=== PATIENT | male | born 1950 | race Caucasian/White ===

== ENCOUNTER 2024-04-23 12:18 | Emergency (ER) | payer MEDICARE, OTHER, SELFPAY ==
[2024-04-23 12:38] VITALS: BP 95/66
--- NOTE | 2024-04-23 12:38 | ED.GENMED ---
ED Provider Triage
<Alex Galloway PA-C - Last Filed: 04/23/24 12:41>
-
Patient seen by provider in Triage?: Seen in Triage
73 yo male w/ hx of muscular dystrophy and CAD s/p CABG x 3 presents with chest pain beginning at 0600 today. Took nitro with relief. Now pain free. concerned that he was 'out of it today' and not driving his wheelchair well
Comfortable appearing in wheelchair as of now. Initial EKG shows LVH, otherwise non ischemic
Check cardiac labs
History of Present Illness
<Alex Galloway PA-C - Last Filed: 04/23/24 12:41>
General
Chief Complaint: Chest Pain
Time Seen by Provider: 04/23/24 13:38
<Phill Paz MD - Last Filed: 04/23/24 19:44>
General
Source: patient
Exam Limitations: none
Nursing documentation reviewed up to this point in time: agreed with
History of Present Illness
History of Present Illness:
Patient with history of coronary artery disease, prostate disease, and muscular dystrophy, currently wheelchair-bound, presents to ED with multiple concerns. 1. patient is having recurrent chest pain, which he experiences on multiple occasions with
any exertion, usually resolves with nitroglycerin tablets at home, which also occurred today on 2 different occasions. 2. pt is experiencing continual problems with bowel movements despite taking otc medications, which is affecting his ability to
urinate, which also has occurred previously. Chest pain described as sharp, intermittent, nonradiating, brought on with exertion, completely relieved with nitroglycerin administration. Denies recent illness. Denies fever or chills. Denies cough.
Denies sore throat. Denies diarrhea. Denies recent change in medications or diet.
Past History
<Alex Galloway PA-C - Last Filed: 04/23/24 12:41>
Past History
ED Past Medical History: Arrthythmia (AFib), CAD, Cancer (Prostate), GERD, HTN, Hypercholesterolemia, Psychiatric (Major depression) and Other ([place]-Dreifuss Muscular Dystrophy, Parkinson disease, Restless Legs Syndrome)
ED Past Surgical History: Cardiac (CABG x3, stents)
Social History
Tobacco: Non-smoker
Alcohol: Occasional
Drug: None
Personal:
Living: with family
Family History
Family History: Other (Reviewed and non-contributory)
Review of Systems
<Phill Paz MD - Last Filed: 04/23/24 19:44>
Review of Systems
Allergies reviewed?: Yes
All Other Systems: ROS reviewed and negative except as documented in HPI and ROS
Constitutional: Reports no symptoms
EENT: Reports no symptoms
Respiratory: Reports no symptoms
Cardiac: Reports chest pain; Denies palpitations or syncope
ABD/GI: Reports constipated
: Reports difficulty voiding
Musculoskeletal: Reports no symptoms
Skin: Reports no symptoms
Neurological: Reports no symptoms
Phy Exam
<Phill Paz MD - Last Filed: 04/23/24 19:44>
Physical Exam
Physical Exam:
Physical Exam
General: no apparent distress, not acutely ill. afebrile
Head: nc/at. eomi
Neck: supple. normal range of motion.
Heart: irregularly irregular, no murmur. equal radial pulses.
Lungs: no acute respiratory distress. clear bilaterally
Abdomen: normal bowel sounds. not tender.
Neuro: alert and oriented x 3.
Skin: no rash
Psychiatric: well kept. interactive and cooperative
Extremities: no edema.
Scores
<Phill Paz MD - Last Filed: 04/23/24 19:44>
Heart Score for Chest Pain Patients
STEMI patient?: Not applicable
Course
<Alex Galloway PA-C - Last Filed: 04/23/24 12:41>
Orders/Labs/Results
Orders:
Orders
04/23/24 12:19
EKG [Electrocardiogram (*1)] Urgent
Reason for Study: Chest Pain
EKG- Treatment ONCE
04/23/24 13:52
CR Obstruct Series W/pa Chest Urgent
Comment:
Reason For Exam: abdominal discomfort w constipation
04/23/24 14:25
Complete Blood Count/With Diff Urgent
Comprehensive Metabolic Panel Urgent
Troponin I Urgent
04/23/24 15:19
0.9% Sodium Chloride 500 ml [Nss] 500 ml IV BOLUS
04/23/24 15:35
Phosphate Enema [Fleet Phosphate Enema-Adult] 135 ml RECTAL NOW STA
04/23/24 15:37
Phosphate Enema [Fleet Phosphate Enema-Adult] 135 ml .ROUTE .STK-MED ONE
Abnormal Lab Results
04/23/24
14:25
MCH 26.6 L pg
(27.0-31.0)
MCHC 31.7 L g/dL
(33.0-37.0)
MPV 11.0 H fL
(7.4-10.4)
Absolute Neuts (auto) 8.1 H 10^3/uL
(1.4-6.5)
Absolute Lymphs (auto) 0.9 L 10^3/uL
(1.2-3.4)
Absolute Monos (auto) 0.8 H 10^3/uL
(0.1-0.6)
Neutrophils % 81.8 H %
(42.2-75.2)
Lymphocytes % 8.9 L %
(20.5-51.1)
BUN 25 H mg/dl
(9-20)
04/23/24 14:25
04/23/24 14:25
Vital Signs
Initial and Last Documented VS:
Initial Vital Signs
Temp Pulse Resp BP Pulse Ox
97.6 F 65 20 95/66 94
04/23/24 12:38 04/23/24 12:38 04/23/24 12:38 04/23/24 12:38 04/23/24 12:38
Last Documented Vital Signs
Temp Pulse Resp BP Pulse Ox
97.6 F 95 20 113/67 96
04/23/24 12:38 04/23/24 16:00 04/23/24 12:38 04/23/24 16:00 04/23/24 16:00
<Phill Paz MD - Last Filed: 04/23/24 19:44>
Orders/Labs/Results
Orders:
Orders
04/23/24 12:19
EKG [Electrocardiogram (*1)] Urgent
Reason for Study: Chest Pain
EKG- Treatment ONCE
04/23/24 13:52
CR Obstruct Series W/pa Chest Urgent
Comment:
Reason For Exam: abdominal discomfort w constipation
04/23/24 14:25
Complete Blood Count/With Diff Urgent
Comprehensive Metabolic Panel Urgent
Troponin I Urgent
04/23/24 15:19
0.9% Sodium Chloride 500 ml [Nss] 500 ml IV BOLUS
04/23/24 15:35
Phosphate Enema [Fleet Phosphate Enema-Adult] 135 ml RECTAL NOW STA
04/23/24 15:37
Phosphate Enema [Fleet Phosphate Enema-Adult] 135 ml .ROUTE .STK-MED ONE
Abnormal Lab Results
04/23/24
14:25
MCH 26.6 L pg
(27.0-31.0)
MCHC 31.7 L g/dL
(33.0-37.0)
MPV 11.0 H fL
(7.4-10.4)
Absolute Neuts (auto) 8.1 H 10^3/uL
(1.4-6.5)
Absolute Lymphs (auto) 0.9 L 10^3/uL
(1.2-3.4)
Absolute Monos (auto) 0.8 H 10^3/uL
(0.1-0.6)
Neutrophils % 81.8 H %
(42.2-75.2)
Lymphocytes % 8.9 L %
(20.5-51.1)
BUN 25 H mg/dl
(9-20)
04/23/24 14:25
04/23/24 14:25
Vital Signs
Initial and Last Documented VS:
Initial Vital Signs
Temp Pulse Resp BP Pulse Ox
97.6 F 65 20 95/66 94
04/23/24 12:38 04/23/24 12:38 04/23/24 12:38 04/23/24 12:38 04/23/24 12:38
Last Documented Vital Signs
Temp Pulse Resp BP Pulse Ox
97.6 F 95 20 113/67 96
04/23/24 12:38 04/23/24 16:00 04/23/24 12:38 04/23/24 16:00 04/23/24 16:00
<Phill Paz MD - Last Filed: 04/23/24 19:44>
MDM/Problems Addressed
MDM/Problems Addressed:
Chest pain, unfortunately recurrent with any exertion, which patient reports happens very frequently, usually relieved with nitroglycerin tablet. Initial troponin unremarkable along with EKG findings. As such, I do not believe that he needs any
further cardiac workup. Patient's main complaint upon arrival, however, is ongoing constipation despite outpatient treatment. X-ray confirmed likely moderate stool. Patient received digital disimpaction by myself, with large quantity of hard
stool, with improvement symptoms. Patient will be discharged home in stable condition, to the care of his , with recommendation to continue bowel regimen at home, i.e. MiraLAX, along with hydration, which may be contributing to his presenting
symptoms. Patient and spouse expressed understanding at time of discharge.
<Phill Paz MD - Last Filed: 04/23/24 19:44>
*EKG
Interpreted by ED Provider?: Yes
EKG Intrepretation Date: 04/23/24
Heart Rate: 100
Rate: normal
Rhythm: a-fib
[place]: normal axis
*Critical Care Note
Total Time (30-74mins, 75-104mins- exclusive of procedures): Not Applicable
ED Attending Note
<Alex Galloway PA-C - Last Filed: 04/23/24 12:41>
-
Portions of this chart may have been created with voice recognition software.� Occasional wrong word or��sound alike� substitutions may have occurred due to the inherent limitations of voice recognition software.
Discharge Plan
Departure
Patient Disposition: Home (Routine Discharge)
Date of Disposition: 04/23/24
Time of Disposition: 16:35
Patient with high blood pressure during this ER visit?: Yes
Condition: Good
Discharge Problem:
Chest pain, Constipation
Instructions: Constipation, Adult ED, Chest Pain PCP Follow Up
Prescriptions:
No Action
cyclobenzaprine 10 mg Tablet
10 mg PO HSPRN PRN (Reason: MUSCLE SPASMS)
atorvastatin [Lipitor] 80 mg Tablet
80 mg PO HS
venlafaxine [Effexor XR] 150 mg Capsule,Extended Release 24hr
150 mg PO DAILY
temazepam 15 mg Capsule
15 mg PO HS
tamsulosin [Flomax] 0.4 mg Capsule
0.4 mg PO HS
ropinirole 2 mg Tablet
4 mg PO HS
ropinirole 2 mg Tablet
2 mg PO DAILY
pantoprazole [Protonix] 40 mg Tablet,Delayed Release (Dr/Ec)
40 mg PO DAILY
nitroglycerin [Nitrostat] 0.4 mg Tablet, Sublingual
0.4 mg SUBLINGUAL [id number] PRN (Reason: CHEST PAINS)
magnesium citrate Solution
150 ml PO DAILYPRN PRN (Reason: constipation)
lorazepam 1 mg Tablet
1 mg PO HSPRN PRN (Reason: SLEEP)
carbidopa-levodopa 25-100 mg Tablet
1 tab PO DAILY@1330
carbidopa-levodopa 25-100 mg Tablet
2 tab PO DAILY
carbidopa-levodopa 25-100 mg Tablet
1 tab PO DAILY@1800
carbidopa-levodopa 25-100 mg Tablet
2 tab PO HS
coQ10 (ubiquinol) 100 mg Capsule
300 mg PO HS
Eliquis 5 mg Tablet
5 mg PO BID
Linzess 72 mcg Capsule
72 mcg PO DAILY
Rx Instructions:
02/15/23- patient has free sample from his pcp
isosorbide mononitrate 30 mg Tablet Extended Release 24 Hr
30 mg PO DAILY Qty: 30 0RF
clopidogrel 75 mg Tablet
75 mg PO DAILY Qty: 30 0RF
ferrous sulfate [FeroSul] 325 mg (65 mg iron) Tablet
325 mg PO DAILY Qty: 30 0RF
metoprolol succinate 25 mg Tablet Extended Release 24 Hr
12.5 mg PO DAILY Qty: 30 0RF
Referrals:
Doug Bond MD [Family Provider] -
Activity Restrictions/Additional Instructions:
As discussed, please follow-up with your primary care physician and/or technical solution architect with any further concerns.
Interventions
Interventions:
*Risk Screen - Suicide Last Done: 04/23/24 15:59
*General Assessment Last Done: 04/23/24 12:38
*Neglect/Abuse Screening Last Done: 04/23/24 15:59
ED- Fall Risk Assessment Last Done: 04/23/24 17:09
*ED COVID-19 Vaccine History Last Done: 04/23/24 15:59
*Nursing Disposition Last Done: 04/23/24 17:09
Discharge Date and Time
Discharge Date/Time: 04/23/24 17:10
Print Language: FIJIAN
[2024-04-23 15:05] LABS: % Basophils 0.3 % (0-2); % Eosinophils 0.1 % (0-6); % Immature Granulocytes 0.4 % (0-0.5); % Lymphocytes 8.9 % (20.5-51.1); % Monocytes 8.5 % (1.7-9.3); % Neutrophils 81.8 % (42.2-75.2); ALT (SGPT) 14 U/L (0-50); Absolute Lymphocytes 0.9 10^3/uL (1.2-3.4); Absolute Monocytes 0.8 10^3/uL (0.1-0.6); Absolute Neutrophils 8.1 10^3/uL (1.4-6.5); Albumin 4.1 g/dl (3.5-5.0); Alkaline Phosphatase 99 U/L (38-126); Blood Urea Nitrogen 25 mg/dl (9-20); Calcium 9.6 mg/dl (8.4-10.2); Carbon Dioxide 30 mmol/L (22-30); Chloride 99 mmol/L (98-107); Glucose 94 mg/dl (70-99); Hematocrit 43.8 % (39.0-52.0); Hemoglobin 13.9 g/dL (13.0-18.0); Mean Corp Hgb Conc. 31.7 g/dL (33.0-37.0); Mean Corpuscular Hgb 26.6 pg (27.0-31.0); Mean Corpuscular Volume 83.9 fL (80.0-94.0); Nucleated Red Blood Cells % 0 % (-); Platelet Count 190 10^3/uL (130-400); Potassium 4.2 mmol/L (3.5-5.1); Red Blood Cell Count 5.22 10^6/uL (4.70-6.10); Red Cell Dist. Width 14.3 % (11.5-14.5); Sodium 138 mmol/L (135-145); Total Protein 6.6 g/dl (6.3-8.2); White Blood Cell Count 9.9 10^3/uL (4.8-10.8); eGFR > 60.00
[2024-04-23 15:13] LABS: Troponin I < 0.012 ng/ml
[2024-04-23] MEDS: FLEET PHOSPHATE ENEMA-ADULT 135 ML RECTAL (15:51)
[2024-04-23 15:52] LABS: AST (SGOT) 24 U/L (17-59)
[2024-04-23] MEDS: NSS 500 IV (15:54)
[2024-04-23 16:00] VITALS: BP 113/67
== END 2024-04-23 17:10 | disposition home or self-care (01) ==
LOC: EMR 12:18
PROVIDERS: Physician Assistant; EMERGENCY PHYSICIAN Emergency Medicine; FAMILY PHYSICIAN Internal Medicine
DX: R07.9 Chest pain, unspecified (principal); K59.00 Constipation, unspecified; I25.10 Atherosclerotic heart disease of native coronary artery without angina pectoris; I10 Essential (primary) hypertension; I48.91 Unspecified atrial fibrillation; K21.9 Gastro-esophageal reflux disease without esophagitis; E78.00 Pure hypercholesterolemia, unspecified; Z95.5 Presence of coronary angioplasty implant and graft; G20.A1 Parkinson's disease without dyskinesia, without mention of fluctuations; Z85.46 Personal history of malignant neoplasm of prostate; Z95.1 Presence of aortocoronary bypass graft; Z99.3 Dependence on wheelchair
CPT/HCPCS: 99284; 96360; 74022; 80053; 84484; 85025; 93005

== ENCOUNTER 2024-07-17 14:12 | Emergency (ER) | payer MEDICARE, OTHER, SELFPAY ==
[2024-07-17 14:18] VITALS: BP 85/56
[2024-07-17 14:32] VITALS: BP 94/59
--- NOTE | 2024-07-17 14:37 | ED.GENMED ---
History of Present Illness
General
Chief Complaint: Change in Mental Status
Source: patient and family
Exam Limitations: none
Time Seen by Provider: 07/17/24 14:29
History of Present Illness
History of Present Illness:
See MDM
Past History
Past History
ED Past Medical History: Arrthythmia (AFib), CAD, Cancer (Prostate), GERD, HTN, Hypercholesterolemia, Psychiatric (Major depression) and Other ([place] Muscular Dystrophy, Parkinson disease, Restless Legs Syndrome)
ED Past Surgical History: Cardiac (CABG x3, stents)
Social History
Tobacco: Non-smoker
Alcohol: Occasional
Drug: None
Personal:
Living: with family
Family History
Family History: Other (Reviewed and non-contributory)
Phy Exam
Physical Exam
Physical Exam:
See MDM
Course
Orders/Labs/Results
Orders:
Orders
07/17/24 14:36
Electrocardiogram (*1) Urgent
Reason for Study: Fatigue / Weakness
CT Head W/o Iv Contrast Urgent
Comment:
Reason For Exam: altered, R side headache
EKG- Treatment ONCE
0.9% Sodium Chloride 1000 ml [Nss] 1,000 ml IV BOLUS
CR Chest Portable - 1 View Urgent
Comment:
Reason For Exam: SOB, Cough
Reason Study Needs to be Portable: Patient Unstable
07/17/24 14:59
Complete Blood Count/With Diff Urgent
Comprehensive Metabolic Panel Urgent
Troponin I Urgent
07/17/24 16:19
Urinalysis Reflex To Culture Urgent
Date Specimen was Collected: 07/17/24
Time Specimen was Collected: 14:47
Urine Microscopic Reflex Cult Urgent
Urine Culture Urgent
MARYAM Source: U
Specimen Description:
Date Specimen was Collected: 07/17/24
Time Specimen was Collected: 14:47
07/17/24 17:10
Sodium Zirconium Cyclosilicate [Lokelma] 10 gram PO NOW STA
Abnormal Lab Results
07/17/24 07/17/24
14:59 16:19
MCH 26.7 L pg
(27.0-31.0)
MCHC 32.8 L g/dL
(33.0-37.0)
MPV 11.7 H fL
(7.4-10.4)
Potassium 5.5 H mmol/L
(3.5-5.1)
BUN 46 H mg/dl
(9-20)
Glucose 178 H mg/dl
(70-99)
Ur Occult Blood Reflex 4+ A
(Negative)
Leukocyte Esterase Rfl 1+ A
(Negative)
Urine Bacteria (Reflex) Few A
(Negative)
Urine Albumin (Reflex) 2+ A
(Neg - Trace)
07/17/24 14:59
07/17/24 14:59
Vital Signs
Initial and Last Documented VS:
Initial Vital Signs
Temp Pulse Resp BP Pulse Ox
97.6 F 73 18 85/56 96
07/17/24 14:18 07/17/24 14:18 07/17/24 14:18 07/17/24 14:18 07/17/24 14:18
Last Documented Vital Signs
Temp Pulse Resp BP Pulse Ox
97.6 F 93 17 89/57 98
07/17/24 14:18 07/17/24 16:15 07/17/24 16:00 07/17/24 16:00 07/17/24 16:45
MDM/Problems Addressed
Differential Diagnosis Includes:
HPI and MDM Narrative:
73-year-old male presenting for evaluation of altered mental status. It is not sure when all the symptoms started. He was last seen normal last night while he was playing cards. They noted he was abnormal today and he was running into [place] with
his electric scooter. He had a blank stare and was not following commands. They brought him in. On arrival, he appears to be back to his baseline. Patient states he feels lightheaded and 'spacey'. He complains of a right-sided headache. He is
on anticoagulation. Will obtain CT head. Will look for metabolic abnormalities and will check urinalysis given his history of Parkinson's disease with altered mental status. He apparently has a chronic cough which family believes that it gets
dismissed. Will obtain chest x-ray
Physical exam
General: Weak and fatigued. Following commands and speaking appropriately
HEENT: protecting airway
Neck: appears supple
CV: No evidence of cyanosis. Irregular rhythm
Resp: No accessory muscle use
Abd: Non-distended. Soft and nontender
Extremities: No deformities
Neuro: alert. Moving all 4 extremities. No obvious neurodeficit noted
Psych: Flat affect
Skin: Intact
Problems Addressed including Acute and Chronic Conditions affecting care:
1. Altered mental status
Acuity: acute
Prognosis: stable
Details: Symptoms appear to be improving. Will obtain basic blood work and CT head and urinalysis
2. Hyperkalemia
Acuity: acute
Prognosis: stable
Details: Will give dose of Lokelma
Updates
Patient has mild hyperkalemia. Will give dose of Lokelma. Urinalysis and remainder of the blood work without clinically significant abnormality. CT head negative. Chest x-ray clear. I long discussion with patient and . We discussed the
possibility of TIA. I did offer admission for further workup. Both patient and understand that we could be missing a treatable diagnosis if they go home. They both understand that a stroke could recur and cause life long morbidity. Knowing
that, both feel comfortable going home and have a capacity make this decision
Differential Diagnosis (but not limited to): UTI, aspiration, intracranial hemorrhage, TIA, hyponatremia
Testing considered: CT angiogram head and neck
Drug therapy (if applicable): OTC meds, please see d/c instruction regarding Rx drugs
Amount and/or Complexity of Data Reviewed
Clinical info obtained from: Patient and family
External data reviewed: N/A
Labs I independently reviewed (but not limited to): Mild hyperkalemia
Radiology: The CT scan was personally and independently reviewed. In addition, official CT report reviewed.
X-ray independently reviewed: Chest x-ray clear
Pulse Ox: not hypoxic
EKG independently reviewed: A-fib, leftward axis, no STEMI
Laser Beam Machine Operator: N/A
Critical Care: N/A
Risk of Complication:
Social Determinants of health: Good social support
Discussed with other providers: N/A
Escalation of Care includes Admit/Obs: After being observed in the Emergency Department, pt stable for discharge.
Occasional wrong word or 'sound a like' substitutions may have occurred due to the inherent limitations of voice recognition software. Read the chart carefully and recognize, using context, where substitutions have occurred.
*Critical Care Note
Total Time (30-74mins, 75-104mins- exclusive of procedures): Not Applicable
ED Attending Note
-
Portions of this chart may have been created with voice recognition software.� Occasional wrong word or��sound alike� substitutions may have occurred due to the inherent limitations of voice recognition software.
Discharge Plan
Departure
Patient Disposition: Home (Routine Discharge)
Date of Disposition: 07/17/24
Time of Disposition: 17:18
Patient with high blood pressure during this ER visit?: No
Discharge Problem:
Altered mental status, Hyperkalemia
Instructions: Altered Mental Status (DC)
Prescriptions:
No Action
cyclobenzaprine 10 mg Tablet
10 mg PO HSPRN PRN (Reason: MUSCLE SPASMS)
atorvastatin [Lipitor] 80 mg Tablet
80 mg PO HS
venlafaxine [Effexor XR] 150 mg Capsule,Extended Release 24hr
150 mg PO DAILY
temazepam 15 mg Capsule
15 mg PO HS
tamsulosin [Flomax] 0.4 mg Capsule
0.4 mg PO HS
ropinirole 2 mg Tablet
4 mg PO HS
ropinirole 2 mg Tablet
2 mg PO DAILY
pantoprazole [Protonix] 40 mg Tablet,Delayed Release (Dr/Ec)
40 mg PO DAILY
nitroglycerin [Nitrostat] 0.4 mg Tablet, Sublingual
0.4 mg SUBLINGUAL [id number] PRN (Reason: CHEST PAINS)
magnesium citrate Solution
150 ml PO DAILYPRN PRN (Reason: constipation)
lorazepam 1 mg Tablet
1 mg PO HSPRN PRN (Reason: SLEEP)
carbidopa-levodopa 25-100 mg Tablet
1 tab PO DAILY@1330
carbidopa-levodopa 25-100 mg Tablet
2 tab PO DAILY
carbidopa-levodopa 25-100 mg Tablet
1 tab PO DAILY@1800
carbidopa-levodopa 25-100 mg Tablet
2 tab PO HS
coQ10 (ubiquinol) 100 mg Capsule
300 mg PO HS
Eliquis 5 mg Tablet
5 mg PO BID
Linzess 72 mcg Capsule
72 mcg PO DAILY
Rx Instructions:
02/15/23- patient has free sample from his pcp
isosorbide mononitrate 30 mg Tablet Extended Release 24 Hr
30 mg PO DAILY Qty: 30 0RF
clopidogrel 75 mg Tablet
75 mg PO DAILY Qty: 30 0RF
ferrous sulfate [FeroSul] 325 mg (65 mg iron) Tablet
325 mg PO DAILY Qty: 30 0RF
metoprolol succinate 25 mg Tablet Extended Release 24 Hr
12.5 mg PO DAILY Qty: 30 0RF
Referrals:
William Staley I. DO [Family Provider] -
Activity Restrictions/Additional Instructions:
Please return for any worsening symptoms.
You may return at any time if you have further concerns.
Please follow up with your doctor at the first available appointment, preferably this week.
As we discussed you could have had a mini stroke. It may happen again. If it happens again, I can also not be certain that it will resolve.
Please have your potassium checked later this week
Thank you for choosing [facility].
Interventions
Interventions:
*Risk Screen - Suicide Last Done: 07/17/24 15:05
*General Assessment Last Done: 07/17/24 14:18
*Neglect/Abuse Screening Last Done: 07/17/24 14:18
*ED- Fall Risk Assessment Last Done: 07/17/24 15:06
*ED COVID-19 Vaccine History Last Done: 07/17/24 15:06
ED- Pulmonary Assessment Last Done: 07/17/24 15:05
ED- Neurological Assessment Last Done: 07/17/24 15:05
ED- Cardiac Assessment Last Done: 07/17/24 15:05
ED Swallowing Screen Last Done: 07/17/24 15:05
Discharge Date and Time
Print Language: THAI
[2024-07-17] MEDS: NSS 1000 IV (15:03)
[2024-07-17 15:05] VITALS: BP 60/42
[2024-07-17 15:07] LABS: % Basophils 0.5 % (0-2); % Eosinophils 0.2 % (0-6); % Immature Granulocytes 0.3 % (0-0.5); % Lymphocytes 20.9 % (20.5-51.1); % Monocytes 4.1 % (1.7-9.3); Absolute Lymphocytes 1.8 10^3/uL (1.2-3.4); Absolute Monocytes 0.4 10^3/uL (0.1-0.6); Absolute Neutrophils 6.5 10^3/uL (1.4-6.5); Hematocrit 44.2 % (39.0-52.0); Hemoglobin 14.5 g/dL (13.0-18.0); Mean Corp Hgb Conc. 32.8 g/dL (33.0-37.0); Mean Corpuscular Hgb 26.7 pg (27.0-31.0); Mean Corpuscular Volume 81.4 fL (80.0-94.0); Mean Platelet Volume 11.7 fL (7.4-10.4); Nucleated Red Blood Cells % 0 % (-); Platelet Count 217 10^3/uL (130-400); Red Blood Cell Count 5.43 10^6/uL (4.70-6.10); Red Cell Dist. Width 14.3 % (11.5-14.5); White Blood Cell Count 8.8 10^3/uL (4.8-10.8)
[2024-07-17 15:22] LABS: ALT (SGPT) 12 U/L (0-50); AST (SGOT) 27 U/L (17-59); Albumin 4.2 g/dl (3.5-5.0); Alkaline Phosphatase 95 U/L (38-126); Blood Urea Nitrogen 46 mg/dl (9-20); Calcium 10.2 mg/dl (8.4-10.2); Carbon Dioxide 27 mmol/L (22-30); Chloride 99 mmol/L (98-107); Glucose 178 mg/dl (70-99); Potassium 5.5 mmol/L (3.5-5.1); Sodium 139 mmol/L (135-145); Total Protein 6.7 g/dl (6.3-8.2); eGFR > 60.00
[2024-07-17 15:32] LABS: Troponin I 0.014 ng/ml
[2024-07-17 15:50] VITALS: BP 119/64
[2024-07-17 16:00] VITALS: BP 89/57
[2024-07-17 16:31] LABS: Urine Albumin 2+ (Neg - Trace); Urine Bilirubin Negative (Negative); Urine Character Clear (Clear); Urine Color Yellow; Urine Glucose Negative (Negative); Urine Ketone Negative (Negative); Urine Leukocyte 1+ (Negative); Urine Nitrite Negative (Negative); Urine Occult Blood 4+ (Negative); Urine Urobilinogen Negative (Neg - 1+)
[2024-07-17 17:00] VITALS: BP 89/58
[2024-07-17 17:01] LABS: Urine Bacteria Few (Negative); Urine Red Blood Cell 0-2 /HPF (0-2); Urine Squamous Cell 0-2 /LPF (Few); Urine White Cell 0-2 /HPF (0-5)
[2024-07-17] MEDS: LOKELMA 10 GRAM PO (17:27)
== END 2024-07-17 17:39 | disposition home or self-care (01) ==
LOC: EMR 14:12
PROVIDERS: EMERGENCY PHYSICIAN Student in an Organized Health Care Education/Training Program; FAMILY PHYSICIAN Internal Medicine
DX: R41.82 Altered mental status, unspecified (principal); E87.5 Hyperkalemia; I25.10 Atherosclerotic heart disease of native coronary artery without angina pectoris; E78.00 Pure hypercholesterolemia, unspecified; I10 Essential (primary) hypertension; I48.91 Unspecified atrial fibrillation; G20.A1 Parkinson's disease without dyskinesia, without mention of fluctuations; Z95.1 Presence of aortocoronary bypass graft; Z95.5 Presence of coronary angioplasty implant and graft
CPT/HCPCS: 96360; 99284; 70450; 71045; 80053; 81003; 81015; 84484; 85025; 87086; 93005

== ENCOUNTER 2024-07-21 17:19 | Observation (INO) | payer MEDICARE, OTHER, SELFPAY ==
[2024-07-21 15:09] VITALS: BP 126/77
[2024-07-21 15:11] VITALS: BP 126/77
--- NOTE | 2024-07-21 15:26 | ED.GENMED ---
History of Present Illness
General
Chief Complaint: Weakness
Source: patient, records, previous radiology exam and previous hospital records
Exam Limitations: none
Time Seen by Provider: 07/21/24 15:13
Nursing documentation reviewed up to this point in time: agreed with
History of Present Illness
History of Present Illness:
73-year-old male via EMS presents with weakness
He is chronically weak has muscular dystrophy is bedbound is his primary caregiver seen here couple days ago with similar complaints told that he could have had a TIA, he was hyperkalemic, mildly, offered admission family wanted to go home,
since then symptoms have remained, also has some pain in his right groin described as an ache
He is A-fib has been compliant with his anti-coagulant
Past History
Past History
ED Past Medical History: Arrthythmia (AFib), CAD, Cancer (Prostate), GERD, HTN, Hypercholesterolemia, Psychiatric (Major depression) and Other (Hammond-Dreifuss Muscular Dystrophy, Parkinson disease, Restless Legs Syndrome)
ED Past Surgical History: Cardiac (CABG x3, stents)
Social History
Tobacco: Non-smoker
Alcohol: Occasional
Drug: None
Personal:
Living: with family
Employment: Not employed
Family History
Family History: Other (Reviewed and non-contributory)
Review of Systems
Review of Systems
All Other Systems: Not applicable
Constitutional: Reports fatigue; Denies fever
EENT: Reports no symptoms
Respiratory: Reports no symptoms
Cardiac: Reports no symptoms
ABD/GI: Reports no symptoms; Denies abdominal pain
: Reports other (Right groin pain); Denies dysuria, incontinence or bleeding
Musculoskeletal: Reports muscle stiffness
Neurological: Reports dizzy and weakness
Phy Exam
Physical Exam
Physical Exam:
Physical Exam
General: Chronically ill male sitting upright normal mental status
Neck: No jaundice
Heart: Irregular
Lungs: no acute respiratory distress. clear bilaterally
Abdomen: Nontender no appreciable hernia or deficit in the right groin
Neuro: alert and oriented. Upper extremities mildly weak lower extremities contracted plegia
Skin: no rash
Psychiatric: well kept. interactive and cooperative
Extremities: Nonpitting edema
Course
Orders/Labs/Results
Orders:
Orders
07/21/24 Dinner
Regular
At Your Request: Limited Participation
Does patient need a safe tray?: No
07/21/24 15:09
Electrocardiogram (*1) Urgent
Reason for Study: Chest Pain
EKG- Treatment ONCE
07/21/24 15:15
C-Reactive Protein Urgent
Comment: ADD ON
Cardiovascular Evaluation Urgent
Comment: ADD ON
Complete Blood Count/With Diff Urgent
Comprehensive Metabolic Panel Urgent
Creatine Phosphokinase Urgent
Comment: ADD ON
Erythrocyte Sed Rate Urgent
Comment: ADD ON
Glycohemoglobin (HgbA1c) Urgent
NT-proBNP Urgent
Comment: ADD ON
TSH Urgent
Comment: ADD ON
Total Thyroxine Urgent
Comment: ADD ON
Troponin I Urgent
07/21/24 15:25
Add On- LAB Urgent
Tests Added?: esr/crp/cpk
CT Head W/o Iv Contrast Urgent
Comment:
Reason For Exam: increased weakness recnelt tia
07/21/24 15:26
CT Abd/pel Without Iv Or Oral Urgent
Comment:
Reason For Exam: groni pian hematuria
07/21/24 15:42
Case Management Consult ONCE
Case Management Consult: Discharge Planning
07/21/24 16:44
CR Chest - 2 Views Urgent
Comment:
Reason For Exam: heaviness
07/21/24 16:45
Admit/Transfer Patient As Directed
Co-Sign Provider:
Level of Care: Observation services
Assign to:: Telemetry
Physician / Group: Ajay Roberson
Diagnosis: Weakness; suspected TIA
Reason for Telemetry: Arrhythmia
Date to Stop Telemetry: 07/24/24
Time to Stop Telemetry: 11:00
Reason for Hospitalization: Weakness; suspected TIA
PRN Pain Medication Management As Directed
May give lesser potent ordered pain med per pt: Yes
preference::
Protocol:: Medication orders for pain may be administered in a
manner that supports deferring to patient preference
when the pt is:
- Requesting an ordered lesser potent pain medication.
Least to most potent pain medications are defined
as: acetaminophen < NSAID < tramadol < opioids
(morphine, oxycodone, hydromorphone).
- Requesting a lesser dose of the same medication IF
ORDERED.
- Requesting a less intrusive route of administration
if both routes are prescribed by the provider (PO <
IV).
07/21/24 16:47
Code Status As Directed
Resuscitation Status: Full Code
07/21/24 16:50
Add On- LAB Urgent
Tests Added?: BNP; TSH; T4; A1c; lipid panel
COVID-19 Antigen Routine
Source: Nasal Swab
07/21/24 17:52
Acetaminophen [Tylenol/Feverall] 650 mg RECTAL Q4HPRN PRN
Acetaminophen [Tylenol] 650 mg PO Q4HPRN PRN
Nitroglycerin Sublingual [Nitrostat (Sublingual)] 0.4 mg SL [id number] PRN
07/21/24 17:52
Case Management Consult ONCE
Case Management Consult: Discharge Planning
Comment: stroke/tia
DIETARY IP CONSULT Routine
Reason for Consult: stroke/TIA
NEUROLOGY CONSULT Routine
Consulting Provider: Randa Valenzuela
Was physician already notified: Yes
Reason for consult: EDMD; progressive weakness; Parkinson's
Hat Blocking Machine Operator Urgent
Activity As Directed
Activity Level: With Assistance
NIH Stroke Scale As Directed
Directions: Per protocol
Comment: every shift and with any change in condition or mental status
Neurological Checks As Directed
Frequency: q4h
Additional Instructions:: q4h x 24h upon admission to the floor, then qshift & with any change in condition
and mental status
Patient Education As Directed
Type: Stroke education packet
Comment: provide to patient and family
Pneumatic Compression Sleeves As Directed
Type: Knee high
Vital Signs As Directed
Frequency: Per unit guidelines
Ot Eval And Treat Routine
Pt Eval And Treat Routine
Activity Level: With Assistance
Speech Therapy Eval & Treat Routine
DX Deep Vein Thrombosis Video Routine
07/21/24 19:00
Carbidopa/Levodopa [Sinemet 25-100] 1.5 tablet PO DAILY@1900
07/21/24 20:00
Apixaban [Eliquis] 5 mg PO BID
Metoprolol Xl [Toprol Xl] 12.5 mg PO BID
07/21/24 22:00
Atorvastatin [Lipitor] 40 mg PO HS
Tamsulosin [Flomax] 0.4 mg PO HS
07/21/24 23:00
Carbidopa/Levodopa [Sinemet 25-100] 2 tablet PO HS@2300
07/22/24 08:00
Carbidopa/Levodopa [Sinemet 25-100] 2 tablet PO DAILY
ISOSORBIDE MONOnitrate ER [Imdur (Extended Release)] 30 mg PO DAILY
Lisinopril [Zestril] 10 mg PO DAILY
Pantoprazole [Protonix] 40 mg PO DAILY
07/22/24 14:00
Carbidopa/Levodopa [Sinemet 25-100] 1.5 tablet PO DAILY@1400
07/24/24 11:00
DC Protocol for Telemetry ONCE
Abnormal Lab Results
07/21/24
15:15
MCHC 32.8 L g/dL
(33.0-37.0)
MPV 11.4 H fL
(7.4-10.4)
Absolute Monos (auto) 0.9 H 10^3/uL
(0.1-0.6)
BUN 44 H mg/dl
(9-20)
Glucose 103 H mg/dl
(70-99)
Hemoglobin A1c 5.9 H %
(4.0-5.6)
Creatine Kinase 224 H U/L
(55-170)
Triglycerides 344 H mg/dl
(10-149)
VLDL Cholesterol, Calc 68 H mg/dl
(0-30)
07/21/24 15:15
07/21/24 15:15
Vital Signs
Initial and Last Documented VS:
Initial Vital Signs
Temp Pulse Resp BP Pulse Ox
97.6 F 84 18 126/77 100
07/21/24 15:09 07/21/24 15:09 07/21/24 15:09 07/21/24 15:09 07/21/24 15:09
Last Documented Vital Signs
Temp Pulse Resp BP Pulse Ox
97.8 F 81 16 98/56 97
07/22/24 07:32 07/22/24 08:14 07/22/24 07:32 07/22/24 14:12 07/22/24 08:40
MDM/Problems Addressed
Differential Diagnosis Includes:
Update patient had a fairly extensive workup few days ago creatinine was up BUN was hemoglobin was normal to have some hematuria certainly high risk for stroke or TIA he is anticoagulated will repeat his CT suspect will be a change, also check CT of
the abdomen pelvis to look for nephrolithiasis, could explain his subjective groin pain hematuria, will also check CPK and inflammatory markers
Ultimately not sure he is can ability go home elderly is his main caregiver,
*Critical Care Note
Total Time (30-74mins, 75-104mins- exclusive of procedures): Not Applicable
ED Attending Note
-
Portions of this chart may have been created with voice recognition software.� Occasional wrong word or��sound alike� substitutions may have occurred due to the inherent limitations of voice recognition software.
Discharge Plan
Departure
Patient Disposition: Admit
Admit to: Med/Surg
Presentation/result/management discussed w/ accepting MD/DO: Hospitalist
Covid-19: Not Applicable
Discharge Problem:
Hammond-Dreifuss muscular dystrophy, Parkinsons, Toxic metabolic encephalopathy
Interventions
Interventions:
*Risk Screen - Suicide Last Done: 07/21/24 15:13
*Neglect/Abuse Screening Last Done: 07/21/24 15:09
*ED- Fall Risk Assessment Last Done: 07/21/24 17:46
*ED COVID-19 Vaccine History Last Done: 07/21/24 15:09
*Nursing Disposition Last Done: 07/21/24 17:46
ED- Cardiac Assessment Last Done: 07/21/24 15:29
ED- Neurological Assessment Last Done: 07/21/24 15:29
ED- Pulmonary Assessment Last Done: 07/21/24 15:29
Discharge Date and Time
Discharge Date/Time: 07/21/24 17:46
[2024-07-21 15:29] LABS: % Basophils 0.4 % (0-2); % Eosinophils 0.3 % (0-6); % Immature Granulocytes 0.4 % (0-0.5); % Lymphocytes 28.5 % (20.5-51.1); % Monocytes 8.8 % (1.7-9.3); % Neutrophils 61.6 % (42.2-75.2); Absolute Lymphocytes 2.8 10^3/uL (1.2-3.4); Absolute Monocytes 0.9 10^3/uL (0.1-0.6); Hematocrit 41.8 % (39.0-52.0); Hemoglobin 13.7 g/dL (13.0-18.0); Mean Corp Hgb Conc. 32.8 g/dL (33.0-37.0); Mean Corpuscular Hgb 27.3 pg (27.0-31.0); Mean Corpuscular Volume 83.3 fL (80.0-94.0); Mean Platelet Volume 11.4 fL (7.4-10.4); Nucleated Red Blood Cells % 0 % (-); Platelet Count 199 10^3/uL (130-400); Red Blood Cell Count 5.02 10^6/uL (4.70-6.10); Red Cell Dist. Width 14.1 % (11.5-14.5); White Blood Cell Count 9.7 10^3/uL (4.8-10.8)
[2024-07-21 15:45] LABS: Troponin I < 0.012 ng/ml
[2024-07-21 15:53] LABS: Erythrocyte Sed Rate 3 mm/hour (0-20)
[2024-07-21 15:56] LABS: ALT (SGPT) 13 U/L (0-50); AST (SGOT) 24 U/L (17-59); Albumin 3.9 g/dl (3.5-5.0); Alkaline Phosphatase 91 U/L (38-126); Blood Urea Nitrogen 44 mg/dl (9-20); Calcium 9.6 mg/dl (8.4-10.2); Carbon Dioxide 29 mmol/L (22-30); Chloride 103 mmol/L (98-107); Creatine Phosphokinase 224 U/L (55-170); Glucose 103 mg/dl (70-99); Potassium 4.6 mmol/L (3.5-5.1); Sodium 140 mmol/L (135-145); Total Bilirubin 0.7 mg/dl (0.2-1.3); Total Protein 6.4 g/dl (6.3-8.2); eGFR > 60.00
[2024-07-21 16:00] VITALS: BP 102/70
[2024-07-21 16:32] LABS: C-Reactive Protein < 5.00 mg/L (0.0-10.00)
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
[2024-07-21 17:23] LABS: HDL Cholesterol 39 mg/dl; LDL Cholesterol, Calculated 26 mg/dl; Total Cholesterol 133 mg/dl (50-199); Triglyceride 344 mg/dl (10-149); Very Low Density Lipoprotein 68 mg/dl (0-30)
[2024-07-21 17:27] LABS: COVID-19 Antigen Negative (Negative)
--- NOTE | 2024-07-21 17:36 | W.PN.UPDATE ---
Update Note
Progress Note Update
I personally performed a history and physical exam of the patient and discussed management with the resident. I reviewed the resident's note and agree with the documented findings and plan of care HPI/CC.
Patient is a 73-year-old male with past medical history of Parkinson's disease, coronary artery disease with history of bypass, permanent atrial fibrillation, iron deficiency anemia, hyperlipidemia, essential hypertension was sent into ER for
worsening weakness. Apparently 2 days back patient was noted to be unresponsive/lethargic and was brought in ER although by the time patient improved. And admission was offered although patient declined. Today patient was working with therapy and
patient was felt to be more weak than usual and was sent in for further evaluation. Patient is bedbound at this point and uses wheelchair/Sharmin lift to get around. Patient's spouse's caregiver. Patient denies any focal weaknesses. Patient has
some diffuse bodyaches. No chest discomfort/palpitation/shortness of breath/abdominal pain/nausea/vomiting/dysuria
HEENT: No pallor, cyanosis, or jaundice. Throat clear.
NECK: Supple. No JVD.
RESPIRATORY: Lungs clear to auscultation.
CVS: S1, S2 normal. RRR. No murmur, rub or gallop.
ABDOMEN: Soft, non-tender. No distension. BS+/normal.
EXTREMITIES: contractures in leg
TRANSIT MAN: AOx3. No focal weakness
Worsening weakness
Rajiv Dreyfus muscular dystrophy
Parkinson's disease
-Patient worsening weakness although according to spouse at baseline patient does require Sharmin lift/wheelchair transfer
-Patient complaining some diffuse body ache -check COVID flu
-No major electrolyte imbalance
-Monitor for any fever curve
Episode of unresponsiveness
-Was in the ED 2 days back
-CT head was negative at the time
-MRI brain ordered with known h/o of vascular issues
CAD/CABG
-Continue home regimen of atorvastatin/Imdur/Lopressor/Eliquis
BPH
-maintain on flomax
Parkinson's disease
-continue on home dose sinemet
Full code
[2024-07-21 17:47] LABS: NT-proBNP 236 pg/ml
[2024-07-21 18:03] VITALS: BP 149/75; BMI 28.8
[2024-07-21 18:10] LABS: TSH 3.01 uIU/ml (0.47-4.68)
[2024-07-21 18:24] VITALS: BMI 28.8
--- NOTE | 2024-07-21 18:26 | CON.NEURO ---
Consultation
Order
Date of Consultation: 07/21/24
Requesting Provider: Juan Miguel Rodriguez MD
Reason for Consult: EDMD, progressive weakness, Parkinson's
Neurology Consultation Note.
HPI: This is a 73-year-old RH man who presented to [facility] on 07/21/2024 with transient proximal arm weakness.
Mr. De Jesus endorses acute onset of bilateral upper extremity weakness upon awakening today in the morning. He reports that the weakness has significantly improved over the course of the day. No reports of sensory symptoms radicular neck pain or new
speech changes.
According to patient's Mr. De Jesus was witnessed to have staring episode 'was in a daze' lasting for several minutes with associated palor and encephalopathy on 07/17/2024. George had no recollection of the events leading to his ER visit that
day. Review of vital signs was notable for transient hypotension down to 60/42 on 07/17/2024.
The patient has been on Eliquis for A-fib and Plavix for unstable angina.
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 He has had progressive left greater than right bradykinesia's before diagnosis of idiopathic Parkinson disease at the age of 62.
ER VS: 126/77, 84, afebrile
EKG: A-Fib, HR-85, QTc Ady402 ms
PDMP:Clonazepam 0.5 Mg 30 tablets filled in on 04/12/2024
Labs: Glucose�107, normal sodium, creatinine, WBCs, CK�224, LDL�26, normal TFTs.
CT head wo contrast-right frontoparietal hygroma, mild atrophy.
PMH: A-fib, SSS(declined AICD due to concerns of extubation difficulties experienced after CABG), bladder cancer, CAD, CM, CHF, HTN, DLP, Millington-Dreifuss Muscular Dystrophy(at the age of 49), IPD(at age 62), nephrolithiasis, Asymptomatic
Microhematuria
PSH: CABG, transurethral Resection of Bladder Tumor, left quadriceps biopsy
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
FH: No family history of myopathy
All: Amantadine�hallucinations,
ROS: Constitutional: Negative. Negative for chills, fever and unexpected weight change.
HENT: Negative for ear pain, hearing loss, tinnitus and trouble swallowing.
Eyes: Negative. Negative for photophobia
Respiratory: Negative for cough, choking and shortness of breath.
Cardiovascular: Negative for chest pain, palpitations and leg swelling.
Gastrointestinal: Positive for constipation, sialorrhea
Endocrine: Negative. Negative for cold intolerance.
Musculoskeletal: Positive for arthralgias.
Skin: Negative for rash.
Allergic/Immunologic: Negative. Negative for immunocompromised state.
Neurological: Positive for progressive bradykinesia's, left hand resting tremor
Psychiatric/Behavioral: Positive for intermittent visual hallucinations
General: Well developed. In no acute distress.
Cardio: Regular rate . Extremities are without cyanosis or edema.
Neuro:
Mental Status: Alert, oriented to person, place, and date. Good fund of knowledge. Follows complex requests across the midline. Comprehension, naming, and repetition intact.
Cranial Nerves: Pupils are equally round and reactive to light. EOMs full except for up-and-down gaze. visual agines full to confrontation. No ptosis. No nystagmus. V1-V3 intact to light touch and pinprick bilaterally, symmetric. Face
symmetric. Normal hearing AU. The palate elevated well. SCMs and traps 5/5. Tongue midline. Mild to moderate dysarthria.
Motor: Increased motor tone with cogwheel rigidity left greater than right. No clear upper extremity proximal muscle atrophy or weakness. Lower proximal paraplegia
Reflexes: 2+ throughout the upper extremities and knees. Plantar responses mute bilaterally.
Sensory: Preserved vibration at the toes
Coordination: Intermittent left hand resting tremor
Gait: deferred
Assessment and Plan:
I. Transient Kbu-bj-etv-Barrel Syndrome�
II. IPD
III. h/o Millington-Dreifuss Muscular Dystrophy
IV. PA A-Fib
-Continue Telemetry monitoring
-Aspiration precaution
-Avoid cerebral hypoperfusion
-Hold Eliquis
-Please obtain carotid artery ultrasound
-Brain MRI without estefania
-Continue aspirin 81 mg once a day
-PT.
-Continue home dose of Sinemet
-Please obtain medical records from [facility]
-DVT prophylaxis.
I personally reviewed all radiology and labs along with past medical records pertinent to current medical problems. Total time spent in patient care is 60 minutes.
Thank you for allowing us to participate in the care of this patient. We will continue to follow. Please do not hesitate to contact us with any questions or concerns.
Subjective/Objective
Subjective Data
Date of Service: July 21, 2024
Objective Data
Vital Signs
Temp Pulse Resp BP Pulse Ox
36.5 C 86 18 149/75 100
07/21/24 18:03 07/21/24 18:03 07/21/24 18:03 07/21/24 18:03 07/21/24 18:03
Lab Results
07/21/24 15:15
07/21/24 15:15
Sodium 140 mmol/L (135-145) 07/21/24 15:15
Potassium 4.6 mmol/L (3.5-5.1) 07/21/24 15:15
BUN 44 mg/dl (9-20) H 07/21/24 15:15
Glucose 103 mg/dl (70-99) H 07/21/24 15:15
Calcium 9.6 mg/dl (8.4-10.2) 07/21/24 15:15
Ozv-V-Gwasgkoukwg Pept 236 pg/ml 07/21/24 15:15
LDL Cholesterol, Calc 26 mg/dl 07/21/24 15:15
Patient Allergies
No Known Allergies Allergy (Verified 07/17/24 14:18)
Medications
-
Active Medications
Generic Name Dose Route Start Last Admin
Trade Name Freq PRN Reason Stop Dose Admin
Acetaminophen 650 mg 07/21/24 17:52
Acetaminophen 650 Mg Rectal Suppository RECTAL 08/18/24 17:51
Q4HPRN PRN
MELGAR, mild pain, or temp >100.4F
Acetaminophen 650 mg 07/21/24 17:52
Acetaminophen 325 Mg Tablet PO 08/18/24 17:51
Q4HPRN PRN
MELGAR, mild pain, or temp >100.4F
Apixaban 5 mg 07/21/24 20:00
Apixaban (Eliquis) 5 Mg Tablet PO 08/18/24 19:59
BID REMY
Atorvastatin Calcium 40 mg 07/21/24 22:00
Atorvastatin (Lipitor) 80 Mg Tablet PO 08/18/24 21:59
HS REMY
Carbidopa/Levodopa 1.5 tablet 07/22/24 14:00
Carbidopa (25 Mg)/Levodopa (100 Mg) Regular Release Tablet PO 08/19/24 13:59
DAILY@1400 REMY
Carbidopa/Levodopa 2 tablet 07/22/24 08:00
Carbidopa (25 Mg)/Levodopa (100 Mg) Regular Release Tablet PO 08/19/24 07:59
DAILY REMY
Carbidopa/Levodopa 1.5 tablet 07/21/24 19:00
Carbidopa (25 Mg)/Levodopa (100 Mg) Regular Release Tablet PO 08/18/24 18:59
DAILY@1900 REMY
Carbidopa/Levodopa 2 tablet 07/21/24 23:00
Carbidopa (25 Mg)/Levodopa (100 Mg) Regular Release Tablet PO 08/18/24 22:59
HS@2300 REMY
Isosorbide Mononitrate 30 mg 07/22/24 08:00
Isosorbide Mononitrate 30 Mg Extended Release Tablet PO 08/19/24 07:59
DAILY REMY
Lisinopril 10 mg 07/22/24 08:00
Lisinopril 10 Mg Tablet PO 08/19/24 07:59
DAILY REMY
Metoprolol Succinate 12.5 mg 07/21/24 20:00
Metoprolol 12.5 Mg Extended Release Dose (1/2 Of 25 Mg Xl Tablet) PO 08/18/24 19:59
BID REMY
Nitroglycerin 0.4 mg 07/21/24 17:52
Nitroglycerin 0.4 Mg Sl Tablet SL 08/18/24 17:51
[id number] PRN
CHEST PAINS
Pantoprazole Sodium 40 mg 07/22/24 08:00
Pantoprazole 40 Mg Delayed Release Tablet PO 08/19/24 07:59
DAILY REMY
Sodium Chloride 0 flush 07/21/24 19:00
Sodium Chloride 0.9% (Flush) Syringe IV 08/18/24 18:59
PER PROTOCOL REMY
Tamsulosin HCl 0.4 mg 07/21/24 22:00
Tamsulosin 0.4 Mg Capsule PO 08/18/24 21:59
HS REMY
Home Medications
�Medication �Instructions �Recorded
apixaban 5 mg tablet (Eliquis) 5 mg PO BID Blood Clot 02/15/23
Prevention/Tx
atorvastatin 80 mg tablet (Lipitor) 40 mg PO HS High Cholesterol 02/15/23
carbidopa 25 mg-levodopa 100 mg 1.5 tab PO DAILY@1400 Parkinsons 02/15/23
tablet disease
carbidopa 25 mg-levodopa 100 mg 1.5 tab PO DAILY@1900 Parkinsons 02/15/23
tablet Disease
carbidopa 25 mg-levodopa 100 mg 2 tab PO DAILY Parkinsons Disease 02/15/23
tablet
carbidopa 25 mg-levodopa 100 mg 2 tab PO HS@2300 Parkinsons Disease 02/15/23
tablet
coQ10 (ubiquinol) 100 mg capsule 300 mg PO HS Supplement 02/15/23
nitroglycerin 0.4 mg sublingual 0.4 mg sublingual [id number] PRN 02/15/23
tablet (Nitrostat) CHEST PAINS
pantoprazole 40 mg tablet,delayed 40 mg PO DAILY Gastrointestinal 02/15/23
release (Protonix) Issue
tamsulosin 0.4 mg capsule (Flomax) 0.4 mg PO HS Urinary Issue 02/15/23
isosorbide mononitrate 30 mg 30 mg PO DAILY Chest pain #30 tabs 02/19/23
tablet,extended release 24 hr
lisinopril 10 mg tablet 10 mg PO DAILY 07/21/24
metoprolol succinate 25 mg 12.5 mg PO BID HTN 07/21/24
tablet,extended release 24 hr
Vital Signs and Labs
-
Vital Signs and Labs:
Vital Signs
Temp Pulse Resp BP Pulse Ox
36.5 C 86 18 149/75 100
07/21/24 18:03 07/21/24 18:03 07/21/24 18:03 07/21/24 18:03 07/21/24 18:03
Lab Results
07/21/24 15:15
07/21/24 15:15
Sodium 140 mmol/L (135-145) 07/21/24 15:15
Potassium 4.6 mmol/L (3.5-5.1) 07/21/24 15:15
BUN 44 mg/dl (9-20) H 07/21/24 15:15
Glucose 103 mg/dl (70-99) H 07/21/24 15:15
Calcium 9.6 mg/dl (8.4-10.2) 07/21/24 15:15
Ome-F-Qxqcridxwwv Pept 236 pg/ml 07/21/24 15:15
LDL Cholesterol, Calc 26 mg/dl 07/21/24 15:15
Medications
-
Medications:
Generic Name Dose Route Start Last Admin
Trade Name Freq PRN Reason Stop Dose Admin
Acetaminophen 650 mg 07/21/24 17:52
Acetaminophen 650 Mg Rectal Suppository RECTAL 08/18/24 17:51
Q4HPRN PRN
MELGAR, mild pain, or temp >100.4F
Acetaminophen 650 mg 07/21/24 17:52
Acetaminophen 325 Mg Tablet PO 08/18/24 17:51
Q4HPRN PRN
MELGAR, mild pain, or temp >100.4F
Apixaban 5 mg 07/21/24 20:00
Apixaban (Eliquis) 5 Mg Tablet PO 08/18/24 19:59
BID REMY
Atorvastatin Calcium 40 mg 07/21/24 22:00
Atorvastatin (Lipitor) 80 Mg Tablet PO 08/18/24 21:59
HS REMY
Carbidopa/Levodopa 1.5 tablet 07/22/24 14:00
Carbidopa (25 Mg)/Levodopa (100 Mg) Regular Release Tablet PO 08/19/24 13:59
DAILY@1400 REMY
Carbidopa/Levodopa 2 tablet 07/22/24 08:00
Carbidopa (25 Mg)/Levodopa (100 Mg) Regular Release Tablet PO 08/19/24 07:59
DAILY REMY
Carbidopa/Levodopa 1.5 tablet 07/21/24 19:00
Carbidopa (25 Mg)/Levodopa (100 Mg) Regular Release Tablet PO 08/18/24 18:59
DAILY@1900 REMY
Carbidopa/Levodopa 2 tablet 07/21/24 23:00
Carbidopa (25 Mg)/Levodopa (100 Mg) Regular Release Tablet PO 08/18/24 22:59
HS@2300 REMY
Isosorbide Mononitrate 30 mg 07/22/24 08:00
Isosorbide Mononitrate 30 Mg Extended Release Tablet PO 08/19/24 07:59
DAILY REMY
Lisinopril 10 mg 07/22/24 08:00
Lisinopril 10 Mg Tablet PO 08/19/24 07:59
DAILY REMY
Metoprolol Succinate 12.5 mg 07/21/24 20:00
Metoprolol 12.5 Mg Extended Release Dose (1/2 Of 25 Mg Xl Tablet) PO 08/18/24 19:59
BID REMY
Nitroglycerin 0.4 mg 07/21/24 17:52
Nitroglycerin 0.4 Mg Sl Tablet SL 08/18/24 17:51
[id number] PRN
CHEST PAINS
Pantoprazole Sodium 40 mg 07/22/24 08:00
Pantoprazole 40 Mg Delayed Release Tablet PO 08/19/24 07:59
DAILY REMY
Sodium Chloride 0 flush 07/21/24 19:00
Sodium Chloride 0.9% (Flush) Syringe IV 08/18/24 18:59
PER PROTOCOL REMY
Tamsulosin HCl 0.4 mg 07/21/24 22:00
Tamsulosin 0.4 Mg Capsule PO 08/18/24 21:59
HS REMY
Home Medications
-
Home Medications
apixaban 5 mg tablet (Eliquis) 5 mg PO BID Blood Clot Prevention/Tx 02/15/23
atorvastatin 80 mg tablet (Lipitor) 40 mg PO HS High Cholesterol 02/15/23
carbidopa 25 mg-levodopa 100 mg tablet 1.5 tab PO DAILY@1400 Parkinsons disease 02/15/23
carbidopa 25 mg-levodopa 100 mg tablet 1.5 tab PO DAILY@1900 Parkinsons Disease 02/15/23
carbidopa 25 mg-levodopa 100 mg tablet 2 tab PO DAILY Parkinsons Disease 02/15/23
carbidopa 25 mg-levodopa 100 mg tablet 2 tab PO HS@2300 Parkinsons Disease 02/15/23
coQ10 (ubiquinol) 100 mg capsule 300 mg PO HS Supplement 02/15/23
nitroglycerin 0.4 mg sublingual tablet (Nitrostat) 0.4 mg sublingual [id number] PRN CHEST PAINS 02/15/23
pantoprazole 40 mg tablet,delayed release (Protonix) 40 mg PO DAILY Gastrointestinal Issue 02/15/23
tamsulosin 0.4 mg capsule (Flomax) 0.4 mg PO HS Urinary Issue 02/15/23
isosorbide mononitrate 30 mg tablet,extended release 24 hr 30 mg PO DAILY Chest pain #30 tabs 02/19/23
lisinopril 10 mg tablet 10 mg PO DAILY 07/21/24
metoprolol succinate 25 mg tablet,extended release 24 hr 12.5 mg PO BID HTN 07/21/24
[2024-07-21 19:00] VITALS: BP 123/75
[2024-07-21] MEDS: ELIQUIS 5 MG PO (20:15)
[2024-07-21] MEDS: SINEMET 25-100 1.5 TABLET PO (20:15)
[2024-07-21] MEDS: TOPROL XL 12.5 MG PO (20:22)
[2024-07-21 22:24] LABS: Urine Albumin 1+ (Neg - Trace); Urine Bilirubin Negative (Negative); Urine Character Clear (Clear); Urine Color Yellow; Urine Glucose Negative (Negative); Urine Ketone Negative (Negative); Urine Leukocyte Negative (Negative); Urine Nitrite Negative (Negative); Urine Occult Blood 4+ (Negative); Urine Specific Gravity 1.015 (<1.030); Urine Urobilinogen Negative (Neg - 1+)
[2024-07-21] MEDS: LIPITOR 40 MG PO (22:27)
[2024-07-21] MEDS: FLOMAX 0.4 MG PO (22:27)
[2024-07-21 22:29] LABS: Urine Squamous Cell 0-2 /LPF (Few)
[2024-07-21 22:30] LABS: Urine Bacteria Few (Negative); Urine White Cell 0-2 /HPF (0-5)
[2024-07-21 23:32] VITALS: BP 159/96
[2024-07-21] MEDS: SINEMET 25-100 2 TABLET PO (23:55)
[2024-07-22 03:20] VITALS: BP 101/59
[2024-07-22] MEDS: TYLENOL 650 MG PO (05:58)
[2024-07-22 06:00] VITALS: BMI 28.3
[2024-07-22 07:13] LABS: Hematocrit 41.1 % (39.0-52.0); Hemoglobin 13.5 g/dL (13.0-18.0); Mean Corp Hgb Conc. 32.8 g/dL (33.0-37.0); Mean Corpuscular Volume 82.2 fL (80.0-94.0); Mean Platelet Volume 11.2 fL (7.4-10.4); Platelet Count 187 10^3/uL (130-400); Red Cell Dist. Width 14.1 % (11.5-14.5); White Blood Cell Count 8.2 10^3/uL (4.8-10.8)
[2024-07-22 07:29] LABS: Blood Urea Nitrogen 38 mg/dl (9-20); Calcium 9.9 mg/dl (8.4-10.2); Carbon Dioxide 26 mmol/L (22-30); Chloride 104 mmol/L (98-107); Estimated Creatinine Clearance 103 ml/min; Glucose 94 mg/dl (70-99); Potassium 4.8 mmol/L (3.5-5.1); Sodium 139 mmol/L (135-145); eGFR > 60.00
[2024-07-22 07:32] VITALS: BP 96/59
[2024-07-22] MEDS: TOPROL XL 12.5 MG PO (08:14)
[2024-07-22] MEDS: SINEMET 25-100 2 TABLET PO (08:14)
[2024-07-22] MEDS: ZESTRIL 10 MG PO (08:14)
[2024-07-22] MEDS: PROTONIX 40 MG PO (08:14)
[2024-07-22] MEDS: IMDUR (EXTENDED RELEASE) 30 MG PO (08:14)
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
[2024-07-22 09:03] LABS: Glycohemoglobin (HgbA1c) 5.9 % (4.0-5.6)
--- NOTE | 2024-07-22 10:15 | W.PN.NEURO.1 ---
Today's Communication / Plan
-
.
Subjective/Objective
Subjective Data
Date of Service: July 22, 2024
Neurology follow-up note
Mr. De Jesus reports no recurrent arm weakness since admission. No reports of headaches, change in vision or sensation.
Brain MRI is pending
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
Microhematuria
PSH: CABG, transurethral Resection of Bladder Tumor, left quadriceps biopsy
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
FH: No family history of myopathy
All: Amantadine�hallucinations,
ROS: Constitutional: Negative. Negative for chills, fever and unexpected weight change.
HENT: Negative for ear pain, hearing loss, tinnitus and trouble swallowing.
Eyes: Negative. Negative for photophobia
Respiratory: Negative for cough, choking and shortness of breath.
Cardiovascular: Negative for chest pain, palpitations and leg swelling.
Gastrointestinal: Positive for constipation, sialorrhea
Endocrine: Negative. Negative for cold intolerance.
Musculoskeletal: Positive for arthralgias.
Skin: Negative for rash.
Allergic/Immunologic: Negative. Negative for immunocompromised state.
Neurological: Positive for progressive bradykinesia's, left hand resting tremor
Psychiatric/Behavioral: Positive for intermittent visual hallucinations
General: Well developed. In no acute distress.
Cardio: Regular rate . Extremities are without cyanosis or edema.
Neuro:
Mental Status: Alert, oriented to person, place, and date. Good fund of knowledge. Follows complex requests across the midline. Comprehension, naming, and repetition intact.
Cranial Nerves: Pupils are equally round and reactive to light. EOMs full except for up-and-down gaze. visual gaines full to confrontation. No ptosis. No nystagmus. V1-V3 intact to light touch and pinprick bilaterally, symmetric. Face
symmetric. Normal hearing AU. The palate elevated well. SCMs and traps 5/5. Tongue midline. Mild to moderate dysarthria.
Motor: Increased motor tone with cogwheel rigidity left greater than right. No clear upper extremity proximal muscle atrophy or weakness. Lower proximal paraplegia
Reflexes: 2+ throughout the upper extremities and knees. Plantar responses mute bilaterally.
Sensory: Preserved vibration at the toes
Coordination: Intermittent left hand resting tremor
Gait: deferred
Assessment and Plan:
I. Transient Noi-jb-say-Barrel Syndrome�
II. IPD. Autonomic dysfunction
III. h/o Pierce-Dreifuss Muscular Dystrophy
IV. PA A-Fib
-Continue Telemetry monitoring
-Aspiration precaution
-Avoid cerebral hypoperfusion
-Hold Eliquis
-Please obtain carotid artery ultrasound
-Brain MRI without estefania
-Continue aspirin 81 mg once a day
-PT.
-Continue home dose of Sinemet
-Please obtain medical records from [facility]
-DVT prophylaxis.
I personally reviewed all radiology and labs along with past medical records pertinent to current medical problems. Total time spent in patient care is 60 minutes.
Thank you for allowing us to participate in the care of this patient. We will continue to follow. Please do not hesitate to contact us with any questions or concerns
Objective Data
Vital Signs
Temp Pulse Resp BP Pulse Ox
36.6 C 81 16 112/57 99
07/22/24 07:32 07/22/24 08:14 07/22/24 07:32 07/22/24 08:14 07/22/24 07:32
Lab Results
07/22/24 06:43
07/22/24 06:43
Sodium 139 mmol/L (135-145) 07/22/24 06:43
Potassium 4.8 mmol/L (3.5-5.1) 07/22/24 06:43
BUN 38 mg/dl (9-20) H 07/22/24 06:43
Glucose 94 mg/dl (70-99) 07/22/24 06:43
Calcium 9.9 mg/dl (8.4-10.2) 07/22/24 06:43
Qcw-T-Qxbfnlvuneu Pept 236 pg/ml 07/21/24 15:15
LDL Cholesterol, Calc 26 mg/dl 07/21/24 15:15
Patient Allergies
No Known Allergies Allergy (Verified 07/17/24 14:18)
Vital Signs and Labs
-
Vital Signs and Labs:
Vital Signs
Temp Pulse Resp BP Pulse Ox
36.6 C 81 16 112/57 99
07/22/24 07:32 07/22/24 08:14 07/22/24 07:32 07/22/24 08:14 07/22/24 07:32
Lab Results
07/22/24 06:43
07/22/24 06:43
Sodium 139 mmol/L (135-145) 07/22/24 06:43
Potassium 4.8 mmol/L (3.5-5.1) 07/22/24 06:43
BUN 38 mg/dl (9-20) H 07/22/24 06:43
Glucose 94 mg/dl (70-99) 07/22/24 06:43
Calcium 9.9 mg/dl (8.4-10.2) 07/22/24 06:43
Whb-U-Vanguhisboo Pept 236 pg/ml 07/21/24 15:15
LDL Cholesterol, Calc 26 mg/dl 07/21/24 15:15
Medications
-
Medications:
Generic Name Dose Route Start Last Admin
Trade Name Freq PRN Reason Stop Dose Admin
Acetaminophen 650 mg 07/21/24 17:52
Acetaminophen 650 Mg Rectal Suppository RECTAL 08/18/24 17:51
Q4HPRN PRN
MELGAR, mild pain, or temp >100.4F
Acetaminophen 650 mg 07/21/24 17:52 07/22/24 05:58
Acetaminophen 325 Mg Tablet PO 08/18/24 17:51 650 mg
Q4HPRN PRN Administration
MELGAR, mild pain, or temp >100.4F
Apixaban 5 mg 07/21/24 20:00 07/21/24 20:15
Apixaban (Eliquis) 5 Mg Tablet PO 08/18/24 19:59 5 mg
BID REMY Administration
Atorvastatin Calcium 40 mg 07/21/24 22:00 07/21/24 22:27
Atorvastatin (Lipitor) 80 Mg Tablet PO 08/18/24 21:59 40 mg
HS REMY Administration
Carbidopa/Levodopa 1.5 tablet 07/22/24 14:00
Carbidopa (25 Mg)/Levodopa (100 Mg) Regular Release Tablet PO 08/19/24 13:59
DAILY@1400 REMY
Carbidopa/Levodopa 2 tablet 07/22/24 08:00 07/22/24 08:14
Carbidopa (25 Mg)/Levodopa (100 Mg) Regular Release Tablet PO 08/19/24 07:59 2 tablet
DAILY REMY Administration
Carbidopa/Levodopa 1.5 tablet 07/21/24 19:00 07/21/24 20:15
Carbidopa (25 Mg)/Levodopa (100 Mg) Regular Release Tablet PO 08/18/24 18:59 1.5 tablet
DAILY@1900 REMY Administration
Carbidopa/Levodopa 2 tablet 07/21/24 23:00 07/21/24 23:55
Carbidopa (25 Mg)/Levodopa (100 Mg) Regular Release Tablet PO 08/18/24 22:59 2 tablet
HS@2300 REMY Administration
Isosorbide Mononitrate 30 mg 07/22/24 08:00 07/22/24 08:14
Isosorbide Mononitrate 30 Mg Extended Release Tablet PO 08/19/24 07:59 30 mg
DAILY REMY Administration
Lisinopril 10 mg 07/22/24 08:00 07/22/24 08:14
Lisinopril 10 Mg Tablet PO 08/19/24 07:59 10 mg
DAILY REMY Administration
Metoprolol Succinate 12.5 mg 07/21/24 20:00 07/22/24 08:14
Metoprolol 12.5 Mg Extended Release Dose (1/2 Of 25 Mg Xl Tablet) PO 08/18/24 19:59 12.5 mg
BID REMY Administration
Nitroglycerin 0.4 mg 07/21/24 17:52
Nitroglycerin 0.4 Mg Sl Tablet SL 08/18/24 17:51
[id number] PRN
CHEST PAINS
Pantoprazole Sodium 40 mg 07/22/24 08:00 07/22/24 08:14
Pantoprazole 40 Mg Delayed Release Tablet PO 08/19/24 07:59 40 mg
DAILY REMY Administration
Sodium Chloride 0 flush 07/21/24 19:00
Sodium Chloride 0.9% (Flush) Syringe IV 08/18/24 18:59
PER PROTOCOL REMY
Tamsulosin HCl 0.4 mg 07/21/24 22:00 07/21/24 22:27
Tamsulosin 0.4 Mg Capsule PO 08/18/24 21:59 0.4 mg
HS REMY Administration
Home Medications
-
Home Medications
apixaban 5 mg tablet (Eliquis) 5 mg PO BID Blood Clot Prevention/Tx 02/15/23
atorvastatin 80 mg tablet (Lipitor) 40 mg PO HS High Cholesterol 02/15/23
carbidopa 25 mg-levodopa 100 mg tablet 1.5 tab PO DAILY@1400 Parkinsons disease 02/15/23
carbidopa 25 mg-levodopa 100 mg tablet 1.5 tab PO DAILY@1900 Parkinsons Disease 02/15/23
carbidopa 25 mg-levodopa 100 mg tablet 2 tab PO DAILY Parkinsons Disease 02/15/23
carbidopa 25 mg-levodopa 100 mg tablet 2 tab PO HS@2300 Parkinsons Disease 02/15/23
coQ10 (ubiquinol) 100 mg capsule 300 mg PO HS Supplement 02/15/23
nitroglycerin 0.4 mg sublingual tablet (Nitrostat) 0.4 mg sublingual [id number] PRN CHEST PAINS 02/15/23
pantoprazole 40 mg tablet,delayed release (Protonix) 40 mg PO DAILY Gastrointestinal Issue 02/15/23
tamsulosin 0.4 mg capsule (Flomax) 0.4 mg PO HS Urinary Issue 02/15/23
isosorbide mononitrate 30 mg tablet,extended release 24 hr 30 mg PO DAILY Chest pain #30 tabs 02/19/23
lisinopril 10 mg tablet 10 mg PO DAILY 07/21/24
metoprolol succinate 25 mg tablet,extended release 24 hr 12.5 mg PO BID HTN 07/21/24
--- NOTE | 2024-07-22 10:40 | PTOTSP ---
Speech Therapy Assessment
Swallowing - within functional limits without overt signs of aspiration. Slow mastication due to limited dentition but overall effective breakdown.
Cognitive Communication skills deemed within functional limits. Speech production characterized by intermittent dysfluncy, mild articulatory imprecision due in part to recent dental extractions, and mild hypokinetic dysarthria from Parkinson's which
is his baseline.
Recommend
1. Continue Regular solids and thin liquids
2. Meds with liquid or as best tolerated.
3. No further skilled ST indicated at this time as patient appears to be at baseline. However, if further testing indicates stroke, would recommend comprehensive cognitive-communication assessment in next level of care.
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
[2024-07-22 12:00] VITALS: BP 88/58
[2024-07-22] MEDS: SINEMET 25-100 1.5 TABLET PO (14:06)
[2024-07-22] MEDS: ASPIR LOW (ENTERIC COATED) 81 MG PO (14:06)
--- NOTE | 2024-07-22 14:10 | W.DCSUMMARY ---
Discharge Summary
Discharge Data
Date of Admission: 07/21/24
Date of Discharge: 07/22/24
-
Pending Results: No
Hospital Course
Primary discharge diagnosis
* Acute weakness
Secondary discharge diagnoses
- [place]-Dreifuss muscular dystrophy
- Parkinson's disease
- Chronic lacunar infarct of the right thalamus
- Chronic subdural hygroma
- Coronary artery disease
- Peripheral arterial occlusive disease
- Persistent atrial fibrillation
- Reduced ejection fraction
- Primary hypertension
- Orthostatic hypotension
- Mixed hyperlipidemia
- Nephrolithiasis
- Benign prostatic hyperplasia
Hospital course
George Hui, 73-year-old male, came to the hospital on 07-21-24 with persistent weakness following a brief episode of aphasia and weakness. He was admitted for neuroimaging and neurology consultation. MR results were consistent with chronic lacunar
infarct and subdural hygroma. Neurology followed the patient and discussed that these are chronic changes, not contributing to his presentation. The patient felt much better the next day after admission, and was close to baseline. Physical therapy
was discussed at a skilled-nursing facility but this was declined in lieu of home physical therapy which the patient gets three times a week. Blood work and vitals remained stable throughout the hospital stay. Other imaging results were also not
revealing of any acute pathologies. He will be discharged home to take aspirin 81 mg daily. Follow-up with primary within 1 week and outpatient neurologist when able.
Discharge Plan
-
Patient Disposition: Home with Home Care
Discharge Diagnosis/Procedures: [place]-Dreifuss muscular dystrophy
Parkinson's disease
Condition: Fair
Diet: Low Fat and Low Cholesterol
Activity: With assistance
Driving Restrictions: No driving
Bathing Restrictions: OK to Shower
Referrals:
Doug Bond MD [Family Provider] - in less than 1 week
Prescriptions:
New
aspirin [Enteric Coated Aspirin] 81 mg tablet,delayed release (DR/EC)
81 mg PO DAILY 90 Days Qty: 90 3RF
Continued
atorvastatin [Lipitor] 80 mg Tablet
40 mg PO HS
tamsulosin [Flomax] 0.4 mg Capsule
0.4 mg PO HS
pantoprazole [Protonix] 40 mg Tablet,Delayed Release (Dr/Ec)
40 mg PO DAILY
nitroglycerin [Nitrostat] 0.4 mg Tablet, Sublingual
0.4 mg SUBLINGUAL [id number] PRN (Reason: CHEST PAINS)
carbidopa-levodopa 25-100 mg Tablet
1.5 tab PO DAILY@1400
carbidopa-levodopa 25-100 mg Tablet
2 tab PO DAILY
carbidopa-levodopa 25-100 mg Tablet
1.5 tab PO DAILY@1900
carbidopa-levodopa 25-100 mg Tablet
2 tab PO HS@2300
coQ10 (ubiquinol) 100 mg Capsule
300 mg PO HS
Eliquis 5 mg Tablet
5 mg PO BID
isosorbide mononitrate 30 mg Tablet Extended Release 24 Hr
30 mg PO DAILY Qty: 30 0RF
lisinopril 10 mg Tablet
10 mg PO DAILY
metoprolol succinate 25 mg tablet extended release 24 hr
12.5 mg PO BID
Discharge Orders:
Discharge Patient (As Directed); Ordered 07/22/24
Ordered By: Ajay Roberson
Discharge Date and Time
Print Language: BAHAMIAN
[2024-07-22 14:12] VITALS: BP 98/56
== END 2024-07-22 16:10 | disposition home health service (06) ==
LOC: 4 EAST ACU 17:19
PROVIDERS: Emergency Medicine; Student in an Organized Health Care Education/Training Program; ADMITTING PHYSICIAN Hospitalist; CONSULT PHYSICIAN Psychiatry & Neurology Neurology; EMERGENCY PHYSICIAN Emergency Medicine; FAMILY PHYSICIAN Internal Medicine
DX: R53.1 Weakness (principal); G20.A1 Parkinson's disease without dyskinesia, without mention of fluctuations; G71.00 Muscular dystrophy, unspecified; E87.5 Hyperkalemia; R10.31 Right lower quadrant pain; I25.110 Atherosclerotic heart disease of native coronary artery with unstable angina pectoris; G25.81 Restless legs syndrome; E78.2 Mixed hyperlipidemia; R47.01 Aphasia; D50.9 Iron deficiency anemia, unspecified; F32.9 Major depressive disorder, single episode, unspecified; K21.9 Gastro-esophageal reflux disease without esophagitis; R31.9 Hematuria, unspecified; R53.83 Other fatigue; N40.0 Benign prostatic hyperplasia without lower urinary tract symptoms; I73.9 Peripheral vascular disease, unspecified; I95.1 Orthostatic hypotension; K80.20 Calculus of gallbladder without cholecystitis without obstruction; I70.0 Atherosclerosis of aorta; N20.0 Calculus of kidney; I48.21 Permanent atrial fibrillation; I11.0 Hypertensive heart disease with heart failure; F45.8 Other somatoform disorders; G96.08 Other cranial cerebrospinal fluid leak; Z74.01 Bed confinement status; Z95.5 Presence of coronary angioplasty implant and graft; Z95.1 Presence of aortocoronary bypass graft; Z85.46 Personal history of malignant neoplasm of prostate; Z79.01 Long term (current) use of anticoagulants; Z79.02 Long term (current) use of antithrombotics/antiplatelets; Z87.442 Personal history of urinary calculi; Z79.899 Other long term (current) drug therapy; Z99.3 Dependence on wheelchair; Z95.0 Presence of cardiac pacemaker; Z86.73 Personal history of transient ischemic attack (TIA), and cerebral infarction without residual deficits; Z11.52 Encounter for screening for COVID-19
CPT/HCPCS: 70450; 70551; 71046; 74176; 80048; 80053; 80061; 81003; 81015; 82550; 83036; 83880; 84436; 84443; 84484; 85025; 85027; 85652; 86140; 87502; 87811; 92523; 92610; 93005; 93880; 99285; G0378

== ENCOUNTER 2024-07-25 11:03 | Inpatient (IN) | payer MEDICARE, OTHER, SELFPAY ==
[2024-07-23] VITALS (10 sets, daily range): BP systolic 87–140; BP diastolic 48–75; BMI 29.0
[2024-07-23 12:58] LABS: Glucose - Point of Care 108 mg/dl (70-99)
[2024-07-23] MEDS: NSS 500 IV (13:30)
[2024-07-23 13:42] LABS: % Basophils 0.3 % (0-2); % Eosinophils 0.1 % (0-6); % Immature Granulocytes 0.2 % (0-0.5); % Lymphocytes 20.3 % (20.5-51.1); % Neutrophils 71.1 % (42.2-75.2); Absolute Lymphocytes 1.9 10^3/uL (1.2-3.4); Absolute Monocytes 0.8 10^3/uL (0.1-0.6); Absolute Neutrophils 6.8 10^3/uL (1.4-6.5); Hemoglobin 13.9 g/dL (13.0-18.0); Mean Corp Hgb Conc. 33.1 g/dL (33.0-37.0); Mean Corpuscular Hgb 27.4 pg (27.0-31.0); Mean Corpuscular Volume 82.7 fL (80.0-94.0); Mean Platelet Volume 11.6 fL (7.4-10.4); Nucleated Red Blood Cells % 0 % (-); Platelet Count 170 10^3/uL (130-400); Red Blood Cell Count 5.08 10^6/uL (4.70-6.10); Red Cell Dist. Width 14.1 % (11.5-14.5); White Blood Cell Count 9.5 10^3/uL (4.8-10.8)
[2024-07-23 13:55] LABS: Blood Urea Nitrogen 41 mg/dl (9-20); Calcium 9.8 mg/dl (8.4-10.2); Carbon Dioxide 29 mmol/L (22-30); Chloride 102 mmol/L (98-107); Estimated Creatinine Clearance 100 ml/min; Glucose 114 mg/dl (70-99); Sodium 140 mmol/L (135-145); eGFR > 60.00
[2024-07-23 14:03] LABS: Troponin I < 0.012 ng/ml
--- NOTE | 2024-07-23 14:41 | PHANOTE ---
med rec tech(07/23/24)- Spoke with family at bedside, when asked stated aspirin was not added to list, and nothing was changed, despite discharge paperwork adding aspirin 81mg QD. Family states he cannot take aspirin.
--- NOTE | 2024-07-23 15:07 | HPS.HSE ---
Addendum entered and electronically signed by Ajay Roberson MD 07/23/24 16:07:
I personally performed a history and physical exam of the patient and discussed management with the resident. I reviewed the resident's note and agree with the documented findings and plan of care HPI/CC.
73-year-old male with below mentioned past medical history was sent from neurology office patient was found to have low systolic blood pressure in 60s. Patient was apparently sitting upright and passed out. Patient spouse has been describing this
spells happening when patient has been in wheelchair apparently. This time around patient will was a neurologist office when the spell happened and blood pressure check at the same time showing systolic blood pressure in 60s. Patient regained
consciousness 5 minutes later or so and was sent to ER for further evaluation. In ER patient was back to normal. Patient spouse has been holding her blood pressure medication of metoprolol as was found in low blood pressure on vital checks at
home. Continuing lisinopril and Imdur.
HEENT: No pallor, cyanosis, or jaundice. Throat clear.
NECK: Supple. No JVD.
RESPIRATORY: Lungs clear to auscultation.
CVS: S1, S2 normal. RRR. No murmur, rub or gallop.
ABDOMEN: Soft, non-tender. No distension. BS+/normal.
EXTREMITIES: No peripheral cyanosis or edema.
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 Functionally paraplegic. Lower extremity contractures
Syncope
Orthostatic hypotension
-Patient likely having episodes of orthostasis causing patient to pass out while sitting in wheelchair.
-Patient have Parkinson's disease and functionally paraplegic and likely have autonomic dysfunction/loss of lower extremity vascular tone
-Patient got NS 500 mL fluid bolus in ER
-Hold metoprolol/Imdur/lisinopril
-Compression stockings if able to be used (patient have contraction lower ext)
-As needed midodrine for systolic blood pressure less than 100
-Admit to [facility] floor for monitoring
[place] Dreyfus muscular dystrophy
Parkinson's disease
Functional paraplegia
-Patient requires emergency medicine physician assistant to get to wheelchair
CAD/CABG
-Continue home regimen of atorvastatin/Eliquis
BPH
-Flomax can potentially add to orthostasis issues well, we will start with discontinuing blood pressure medications for
Parkinson's disease
-continue on home dose sinemet
Full code
Total time spent : 78 mins
I personally saw and examined the patient.
I have reviewed all diagnostic interpretations and treatment plans as written.
Time includes patient management by me, time spent at the patients bedside, time to review lab and imaging results, discussing patient care, documentation in the medical record, and time spent with the family or caregiver and discussing care plan
with RN/Consultants.
Original Note:
Family Physician
-
Family Physician: Doug Bond
Chief Complaint
-
Hypotension
History of Present Illness
George Hui, 73-year-old male with two recent hospital visits for altered mental status and weakness, presents today with another episode. He was at his neurologist's clinic today when he had a 5-minute episode of not being able to respond to
questions and feeling acutely weaker. His blood pressure was noted to be in the 60s/40s, and he was transported to the hospital via EMS for further evaluation and management. He has been hypotensive at home over the past couple of days, and his
metoprolol 12.5 mg twice daily was held. However, his lisinopril 10 mg and isosorbide mononitrate 30 mg once daily were continued. Of note, his elderly is the primary caregiver.
Medical History
Past Medical History
Past Medical History: Reports Other
Additional Past Medical History:
[place]-Dreifuss muscular dystrophy
Parkinson's disease
Coronary artery disease
Peripheral arterial occlusive disease
Persistent atrial fibrillation
Reduced ejection fraction
Primary hypertension
Orthostatic hypotension
Mixed hyperlipidemia
Nephrolithiasis
Benign prostatic hyperplasia
Past Surgical History: Reports Other
Additional Past Surgical History:
CABG
RLE stent
Social History
Tobacco: Non-smoker
Drug: None
Personal:
Living: With Family ( - primary caregiver)
Employment: Disabled
Family History
Family History: Other ([place]-Dreifuss muscular dystrophy)
Allergies / Home Medications
Allergies reflects when Allergies were last updated in [employer].
Home Medications with original date entered in [employer]
Allergy/Medication List:
Allergies
Allergy/AdvReac Type Severity Reaction Status Date / Time
No Known Allergies Allergy Verified 07/17/24 14:18
Home Medications
apixaban 5 mg tablet (Eliquis) 5 mg PO BID Blood Clot Prevention/Tx 02/15/23
atorvastatin 80 mg tablet (Lipitor) 40 mg PO HS High Cholesterol 02/15/23
carbidopa 25 mg-levodopa 100 mg tablet 1.5 tab PO DAILY@1400 Parkinsons disease 02/15/23
carbidopa 25 mg-levodopa 100 mg tablet 1.5 tab PO DAILY@1900 Parkinsons Disease 02/15/23
carbidopa 25 mg-levodopa 100 mg tablet 2 tab PO DAILY Parkinsons Disease 02/15/23
carbidopa 25 mg-levodopa 100 mg tablet 2 tab PO HS@2300 Parkinsons Disease 02/15/23
coQ10 (ubiquinol) 100 mg capsule 300 mg PO HS Supplement 02/15/23
nitroglycerin 0.4 mg sublingual tablet (Nitrostat) 0.4 mg sublingual [id number] PRN CHEST PAINS 02/15/23
pantoprazole 40 mg tablet,delayed release (Protonix) 40 mg PO DAILY Gastrointestinal Issue 02/15/23
tamsulosin 0.4 mg capsule (Flomax) 0.4 mg PO HS Urinary Issue 02/15/23
isosorbide mononitrate 30 mg tablet,extended release 24 hr 30 mg PO DAILY Chest pain #30 tabs 02/19/23
lisinopril 10 mg tablet 10 mg PO DAILY 07/21/24
metoprolol succinate 25 mg tablet,extended release 24 hr 12.5 mg PO BID HTN 07/21/24
Review of Systems
-
Constitutional: Reports No Symptoms
EENT: Reports No Symptoms
Respiratory: Reports No Symptoms
Cardiac: Reports No Symptoms
Abdomen/GI: Reports No Symptoms
: Reports No Symptoms
Musculoskeletal: Reports No Symptoms
Skin: Reports Other (median sternotomy scar with hypertrophic growth)
Neurological: Reports Dizzy and Weakness
Endocrine: Reports No Symptoms
Hematologic/Lymphatic: Reports No Symptoms
Psych: Reports No Symptoms
Physical Exam
Vital Signs
Vital Signs
Temp Pulse Resp BP Pulse Ox
98.7 F 81 14 103/56 97
07/23/24 12:50 07/23/24 14:15 07/23/24 14:15 07/23/24 14:00 07/23/24 14:15
Physical Exam
General: No Apparent Distress and Comfortable
HEENT: NormoCephalic, Anicteric, Moist mucous membranes, Atraumatic and No Ptosis
Respiratory: Clear and Non Labored Respirations
Cardiac: S1/S2 and Irregular Rhythm; No Murmur, Rub or Gallop
GI: Soft, Non Tender, Non Distended and No Hepatosplenomegaly
Genito-urinary: Other (diffuse pelvic tenderness, mild)
Musculoskeletal: No Clubbing, No Cyanosis and No Edema
Skin: Warm, Dry and IV/Catheter Site
Neuro: Awake, Alert, Oriented, Tremors (resting and intentional) and Other (Lower extremity motor strength 1/5 - upper 4/5)
Psych: Calm and Intact Judgment/Insight
Laboratory Results
-
07/23/24 13:21
07/23/24 13:21
Laboratory Results
Troponin I < 0.012 ng/ml 07/23/24 13:21
Impression/Plan
-
Autonomic dysfunction
Symptomatic hypotension
Orthostatic hypotension
- Not unexpected with Parkinson's, EDMD and long-term disabled state.
- Likely contributing to his episodes, where get becomes symptomatic due to hypotension.
- Hold all anti-hypertensives for now; will re-introduce as/if tolerated.
- Compression therapy, and midodrine as needed.
- PT (out-of-bed to chair as much as possible) and daily orthostatic (supine and upright) vitals.
- Can consider scheduling midodrine and abdominal binder if needed.
Parkinson's disease
- Diagnosed in late 50s-early 60s.
- Possibly contributing to/causing his presentation.
- Continue carbidopa-levodopa.
[place]-Dreifuss muscular dystrophy
- Progressive, diagnosed in his 40s.
- Followed a neurogeneticist at [facility].
- Possibly contributing to/causing his presentation.
- Mild CPK expected with this disorder.
Primary hypertension
- Hold home medications.
Permanent atrial fibrillation
- Monitor on telemetry.
- Continue apixaban and hold metoprolol.
Reduced ejection fraction
Coronary artery disease
Peripheral arterial occlusive disease
- 40% in 2022, without symptoms of heart failure.
- Known coronary occlusions that are likely not amenable to interventions.
- Hold medications per above; continue aspirin.
Benign prostatic hyperplasia
- Continue tamsulosin.
Nephrolithiasis
- CT A-P with a 2 mm nonobstructing stone in the interpolar left kidney.
- Possibly contributing to hematuria noted on 07-17-24.
- Repeat UA pending.
Median sternotomy growth
- states he has a picking problem.
- Chronic appearance suggests hypertrophic growth response.
- Cannot exclude a BCC; needs outpatient dermatology evaluation.
Thromboprophylaxis
- Apixaban.
Code status
- Full.
Medical power of corporate attorney
- Mariza, .
--- NOTE | 2024-07-23 15:29 | ED.GENMED ---
History of Present Illness
General
Chief Complaint: Blood Pressure Problem
Source: patient and spouse
Exam Limitations: none
Time Seen by Provider: 07/23/24 13:02
History of Present Illness
History of Present Illness:
Patient presents from a neurology office with significant hypotension. Blood pressure was in the 60s. Discharged from here yesterday for a neurologic evaluation. Per the he was discharged hypotensive. Episodes of lightheadedness today.
Denies other symptoms denying chest pain shortness of breath fever cough abdominal pain urinary symptoms etc.
Past History
Past History
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
ED Past Surgical History: Cardiac (CABG x3, stents)
Social History
Tobacco: Non-smoker
Alcohol: Occasional
Drug: None
Personal:
Living: with family
Employment: Not employed
Family History
Family History: Other (Reviewed and non-contributory)
Review of Systems
Review of Systems
All Other Systems: Not applicable
Constitutional: Denies fever or chills
Respiratory: Reports no symptoms
Cardiac: Reports no symptoms
Phy Exam
Physical Exam
Physical Exam:
GENERAL: Alert and oriented. All for stated age. Hypertensive
EYE: Orbits normal.
NECK: Supple, no significant adenopathy.
CARDIAC: Minimally irregular no murmur
LUNGS: Clear breath sounds,normal
ABDOMEN: Soft, without focal tenderness or distention
NEUROLOGICAL: Alert and oriented , symmetrical. Weak lower extremities.
SKIN: Warm and dry, no rash or lesion, no discoloration, skin intact.
MUSCULOSKELETAL: No edema,no deformity.Good color
PSYCH: Normal and appropriate interaction.
Course
Orders/Labs/Results
Orders:
Orders
07/23/24 13:10
IV Insert/Care/Rem.- Treatment PRN
0.9% Sodium Chloride 500 ml [Nss] 500 ml IV BOLUS
Pulse Ox/cont/shift [RESP] Stat
Quantity: 1
07/23/24 13:11
Electrocardiogram (*1) Stat
Reason for Study: Other
Other Reason for Exam: chest pain
Cardiac Monitoring- Treatment ONCE
EKG- Treatment ONCE
CR Chest - 2 Views Urgent
Comment:
Reason For Exam: hypotension
07/23/24 13:21
Basic Metabolic Panel Urgent
Complete Blood Count/With Diff Urgent
Troponin I Urgent
07/23/24 14:57
Admit/Transfer Patient As Directed
Co-Sign Provider:
Level of Care: Observation services
Assign to:: Telemetry
Physician / Group: Ajay Roberson
Diagnosis: Hypotension
Reason for Telemetry: Arrhythmia
Date to Stop Telemetry: 07/26/24
Time to Stop Telemetry: 11:00
Carbidopa/Levodopa [Sinemet 25-100] 1.5 tablet PO NOW STA
07/23/24 14:58
PRN Pain Medication Management As Directed
May give lesser potent ordered pain med per pt: Yes
preference::
Protocol:: Medication orders for pain may be administered in a
manner that supports deferring to patient preference
when the pt is:
- Requesting an ordered lesser potent pain medication.
Least to most potent pain medications are defined
as: acetaminophen < NSAID < tramadol < opioids
(morphine, oxycodone, hydromorphone).
- Requesting a lesser dose of the same medication IF
ORDERED.
- Requesting a less intrusive route of administration
if both routes are prescribed by the provider (PO <
IV).
07/23/24 15:00
Code Status As Directed
Resuscitation Status: Full Code
Regular
At Your Request: Limited, Technical Implementation Lead Required
07/23/24 17:56
Midodrine [ProAmatine] 5 mg PO Q4HPRN PRN
Nitroglycerin Sublingual [Nitrostat (Sublingual)] 0.4 mg SL [id number] PRN
07/23/24 17:56
Activity As Directed
Activity Level: With Assistance
Compression Therapy As Directed
Location/extremity:: Right LE knee high
Left LE knee high
Type of compression therapy:: Medigrip/Tubigrip (latex)
Orthostatic Vital Signs As Directed
Orthostatic VS Frequency: Daily
Vital Signs As Directed
Frequency: q4h
Ot Eval And Treat Routine
Pt Eval And Treat Routine
Treatment: Please get daily supine and sitting blood pressures for orthostatic vitals
Activity Level: With Assistance
Out of Bed- Chair
Out of Bed- Wheelchair
07/23/24 19:00
Carbidopa/Levodopa [Sinemet 25-100] 1.5 tablet PO DAILY@1900
07/23/24 20:00
Apixaban [Eliquis] 5 mg PO BID
07/23/24 22:00
Atorvastatin [Lipitor] 40 mg PO HS
Tamsulosin [Flomax] 0.4 mg PO HS
07/23/24 23:00
Carbidopa/Levodopa [Sinemet 25-100] 2 tablet PO HS@2300
07/24/24 06:09
Basic Metabolic Panel IN AM
Complete Blood Count/No Diff IN AM
07/24/24 08:00
Aspirin Low Dose EC [Aspir Low (Enteric Coated)] 81 mg PO DAILY
Carbidopa/Levodopa [Sinemet 25-100] 2 tablet PO DAILY
Pantoprazole [Protonix] 40 mg PO DAILY
07/24/24 14:00
Carbidopa/Levodopa [Sinemet 25-100] 1.5 tablet PO DAILY@1400
07/26/24 11:00
DC Protocol for Telemetry ONCE
Abnormal Lab Results
07/23/24 07/23/24
12:56 13:21
MPV 11.6 H fL
(7.4-10.4)
Absolute Neuts (auto) 6.8 H 10^3/uL
(1.4-6.5)
Absolute Monos (auto) 0.8 H 10^3/uL
(0.1-0.6)
Lymphocytes % 20.3 L %
(20.5-51.1)
BUN 41 H mg/dl
(9-20)
Glucose 114 H mg/dl
(70-99)
POC Glucose 108 H mg/dl
(70-99)
07/23/24 13:21
07/23/24 13:21
Vital Signs
Initial and Last Documented VS:
Initial Vital Signs
Temp Pulse Resp BP Pulse Ox
98.7 F 93 18 111/68 99
07/23/24 12:50 07/23/24 12:50 07/23/24 12:50 07/23/24 12:50 07/23/24 12:50
Last Documented Vital Signs
Temp Pulse Resp BP Pulse Ox
98.1 F 92 18 107/67 99
07/24/24 15:06 07/24/24 15:06 07/24/24 15:06 07/24/24 15:06 07/24/24 15:06
MDM/Problems Addressed
Differential Diagnosis Includes:
Patient presents with hypotension. Doubt sepsis doubt primary cardiac issue. Most suspicious of either central neurologic issue plus minus medications. However warrants readmission for further workup and stabilization
*Radiology
Radiology exam reviewed: preliminary read by ED provider (Negative)
*Pulse Oximetry
Patient hypoxic: no
*EKG
Interpreted by ED Provider?: Yes
Interpretation: abnormal
Rate: normal
Rhythm: a-fib
[place]: normal axis
Interval: normal interval
QRS Pattern: normal QRS and left vent hypertrophy
Ischemia: non-specific ST changes
*Finishing Manager Interpretation
Rate: normal
Interpretation: abnormal
Heart Rate: 77
*Critical Care Note
Total Time (30-74mins, 75-104mins- exclusive of procedures): Not Applicable
Data Reviewed
Review of Other/Old Records Reveals: Labs, Testing and Discharge Summary
ED Attending Note
-
Portions of this chart may have been created with voice recognition software.� Occasional wrong word or��sound alike� substitutions may have occurred due to the inherent limitations of voice recognition software.
Discharge Plan
Departure
Patient Disposition: Admit
Date of Disposition: 07/23/24
Time of Disposition: 14:32
Presentation/result/management discussed w/ accepting MD/DO: Hospitalist
Discharge Problem:
Persistent hypotension
Interventions
Interventions:
*Risk Screen - Suicide Last Done: 07/23/24 12:50
*General Assessment Last Done: 07/23/24 12:50
*Neglect/Abuse Screening Last Done: 07/23/24 12:50
*ED- Fall Risk Assessment Last Done: 07/23/24 17:41
*ED COVID-19 Vaccine History Last Done: 07/23/24 13:25
*Nursing Disposition Last Done: 07/23/24 18:00
ED- Pulmonary Assessment Last Done: 07/23/24 13:33
ED- Neurological Assessment Last Done: 07/23/24 13:33
ED- Cardiac Assessment Last Done: 07/23/24 13:33
Discharge Date and Time
Discharge Date/Time: 07/23/24 18:00
[2024-07-23] MEDS: SINEMET 25-100 1.5 TABLET PO ×2 (16:01→20:00)
[2024-07-23 16:39] LABS: Urine Albumin Negative (Neg - Trace); Urine Bilirubin Negative (Negative); Urine Character Clear (Clear); Urine Color Yellow; Urine Glucose Negative (Negative); Urine Ketone Negative (Negative); Urine Leukocyte Negative (Negative); Urine Nitrite Negative (Negative); Urine Occult Blood 1+ (Negative); Urine Urobilinogen Negative (Neg - 1+)
[2024-07-23 17:06] LABS: Urine Squamous Cell 0-2 /LPF (Few)
[2024-07-23 17:07] LABS: Urine Red Blood Cell 0-2 /HPF (0-2); Urine White Cell 0-2 /HPF (0-5)
[2024-07-23] MEDS: ELIQUIS 5 MG PO (20:01)
[2024-07-23] MEDS: LIPITOR 40 MG PO (22:19)
[2024-07-23] MEDS: FLOMAX 0.4 MG PO (22:22)
[2024-07-23] MEDS: SINEMET 25-100 2 TABLET PO (22:34)
[2024-07-24] VITALS (9 sets, daily range): BP systolic 92–141; BP diastolic 47–93; PULSE 76–98; O2SAT 96
[2024-07-24 07:43] LABS: Hematocrit 39.7 % (39.0-52.0); Hemoglobin 13.2 g/dL (13.0-18.0); Mean Corp Hgb Conc. 33.2 g/dL (33.0-37.0); Mean Corpuscular Hgb 27.4 pg (27.0-31.0); Mean Corpuscular Volume 82.5 fL (80.0-94.0); Mean Platelet Volume 11.6 fL (7.4-10.4); Platelet Count 175 10^3/uL (130-400); Red Blood Cell Count 4.81 10^6/uL (4.70-6.10); Red Cell Dist. Width 13.9 % (11.5-14.5); White Blood Cell Count 6.9 10^3/uL (4.8-10.8)
[2024-07-24 07:59] LABS: Blood Urea Nitrogen 32 mg/dl (9-20); Carbon Dioxide 28 mmol/L (22-30); Chloride 103 mmol/L (98-107); Estimated Creatinine Clearance 117 ml/min; Glucose 96 mg/dl (70-99); Potassium 4.4 mmol/L (3.5-5.1); Sodium 140 mmol/L (135-145); eGFR > 60.00
[2024-07-24] MEDS: ASPIR LOW (ENTERIC COATED) 81 MG PO (09:27)
[2024-07-24] MEDS: SINEMET 25-100 2 TABLET PO ×2 (09:27→22:07)
[2024-07-24] MEDS: PROTONIX 40 MG PO (09:27)
[2024-07-24] MEDS: ELIQUIS 5 MG PO ×2 (09:28→21:42)
--- NOTE | 2024-07-24 12:13 | CM ---
CM reviewed chart, patient seen bedside with , initial assessment completed by . Patient and resident in a multiple story home, first floor step up, no steps to enter. Patient has a rolling walker, chair glide, power chair, wheel chair,
sit to stand lift, current with [facility], history of [facility] (about 5 years ago). PCP confirmed [facility], pharmacy [facility], confirm prescription coverage. GONZALEZ reviewed, signed, placed in chart, declined need for copy. Patient
will need script for outpatient PT/OT upon discharge to resume services with [facility]. CM will continue to follow for all discharge planning needs.
Plan; return home with [facility], will need script upon d/c
[2024-07-24] MEDS: ProAmatine 5 MG PO ×2 (12:44→17:21)
[2024-07-24] MEDS: SINEMET 25-100 1.5 TABLET PO ×2 (12:44→17:20)
--- NOTE | 2024-07-24 13:11 | W.PN.HOSP.TC ---
Addendum entered and electronically signed by Ajay Roberson MD 07/24/24 14:16:
I saw and evaluated the patient. I reviewed the resident�s note and agree with findings and plan as documented in the resident�s note.
Syncope
Orthostatic hypotension
-Patient likely having episodes of orthostasis causing patient to pass out while sitting in wheelchair.
-Patient have Parkinson's disease and functionally paraplegic and likely have autonomic dysfunction/loss of lower extremity vascular tone
-Patient got NS 500 mL fluid bolus in ER
-Hold metoprolol/Imdur/lisinopril
-Compression stockings if able to be used (patient have contraction lower ext)
-Patient had another witnessed event while patient was sitting upright, confirming likely orthostasis causing the spells. Patient is already been off of antihypertensives. Will start patient on midodrine today
Rajiv Dreyfus muscular dystrophy
Parkinson's disease
Functional paraplegia
-Patient requires assistant branch operations manager to get to wheelchair
CAD/CABG
-Continue home regimen of atorvastatin/Eliquis
BPH
-Flomax can potentially add to orthostasis issues well, we will start with discontinuing blood pressure medications for
Parkinson's disease
-continue on home dose sinemet
Full code
Original Note:
Today's Communication/Plan
-
* Start midodrine.
* BP Q4H for now.
* Abdominal binder if tolerated.
Assessment / Plan
Assessment / Plan
Assessment
George Hui, 73-year-old male with two recent hospital visits for altered mental status and weakness, presents today with another episode. He was at his neurologist's clinic today when he had a 5-minute episode of not being able to respond to
questions and feeling acutely weaker. His blood pressure was noted to be in the 60s/40s, and he was transported to the hospital via EMS for further evaluation and management. He has been hypotensive at home over the past couple of days, and his
metoprolol 12.5 mg twice daily was held. However, his lisinopril 10 mg and isosorbide mononitrate 30 mg once daily were continued. Of note, his elderly is the primary caregiver.
Impression and plan
Autonomic dysfunction
Symptomatic hypotension
Orthostatic hypotension
- Not unexpected with Parkinson's, EDMD and long-term disabled state.
- Likely contributing to his episodes, where get becomes symptomatic due to hypotension.
- Hold all anti-hypertensives for now; will re-introduce as/if tolerated (starting with metoprolol).
- Compression therapy, and start midodrine.
- PT (out-of-bed to chair as much as possible) and daily orthostatic (supine and upright) vitals.
- Can consider scheduling midodrine and abdominal binder if needed.
Parkinson's disease
- Diagnosed in late 50s-early 60s.
- Possibly contributing to/causing his presentation.
- Continue carbidopa-levodopa.
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
- Progressive, diagnosed in his 40s.
- Followed a neurogeneticist at [facility].
- Possibly contributing to/causing his presentation.
- Mild CPK expected with this disorder.
Primary hypertension
- Hold home medications.
Permanent atrial fibrillation
- Monitor on telemetry.
- Continue apixaban and hold metoprolol.
Reduced ejection fraction
Coronary artery disease
Peripheral arterial occlusive disease
- 40% in 2022, without symptoms of heart failure.
- Known coronary occlusions that are likely not amenable to interventions.
- Hold medications per above; continue aspirin.
Benign prostatic hyperplasia
- Continue tamsulosin.
Nephrolithiasis
- CT A-P with a 2 mm nonobstructing stone in the interpolar left kidney.
- Possibly contributing to hematuria noted on 07-17-24.
- Repeat UA pending.
Median sternotomy growth
- states he has a picking problem.
- Chronic appearance suggests hypertrophic growth response.
- Cannot exclude a BCC; needs outpatient dermatology evaluation.
Thromboprophylaxis
- Apixaban.
Code status
- Full.
Medical power of diving instructor
- Mariza, .
Anticipated Discharge: 24 - 48 hours
Subjective/Interval History
-
Date of Service: July 24, 2024
Had an episode of hypotension this morning despite of being off antihypertensives for 24+ hours.
Objective Data
-
Labs:
Laboratory Results
07/24/24
06:09
WBC 6.9
Hgb 13.2
Hct 39.7
Plt Count 175
Sodium 140
Potassium 4.4
Chloride 103
Carbon Dioxide 28
BUN 32 H
Creatinine 0.6 L
Glucose 96
Calcium 10.0
Vital Signs:
Vital Signs
Temp Pulse Resp BP Pulse Ox
97.3 F 96 18 92/60 94
07/24/24 11:25 07/24/24 11:25 07/24/24 11:25 07/24/24 12:44 07/24/24 11:25
I&O
07/23/24 07/24/24 07/25/24
06:59 06:59 06:59
Intake Total 220 / 220
Output Total 750 / 750
Balance -530 / -530
Review of Systems
-
History Source: Patient
Constitutional: Reports No Symptoms
EENT: Reports No Symptoms Reported
Respiratory: Reports No Symptoms
Cardiac: Reports No Symptoms
Abdomen/GI: Reports No Symptoms
Genitourinary: Reports No Symptoms
Musculoskeletal: Reports Muscle Weakness
Skin: Reports No Symptoms
Neuro: Reports Tremors
Endocrine: Reports No Symptoms
Hematologic / Lymphatic: Reports No Symptoms
Physical Exam
-
General: No Apparent Distress and Comfortable
HEENT: Normocephalic, Atraumatic, Moist Mucous Membranes, Anicteric and No Ptosis
Respiratory: Clear to Auscultation and Non Labored Respirations
Cardiac: S1/S2 and Irregular Rhythm
GI: Soft, Nontender, Nondistended and No Hepatosplenomegaly
Genito-urinary: No Costovertebral Tender
Musculoskeletal: No Clubbing, No Cyanosis and No Edema
Skin: Warm, Dry and IV Access / Catheter Site
Neuro: Awake, Alert, Oriented, Tremors (resting and intention) and Other (Lower extremity motor strength 1/5 - upper 4/5)
Psych: Calm and Intact Judgement/Insight
[2024-07-24] MEDS: LIPITOR 40 MG PO (21:43)
[2024-07-24] MEDS: FLOMAX 0.4 MG PO (21:43)
[2024-07-25] VITALS (7 sets, daily range): BP systolic 98–134; BP diastolic 57–82; PULSE 88–97
[2024-07-25] MEDS: MUCINEX 600 MG PO ×3 (02:47→21:22)
[2024-07-25 06:22] LABS: Hematocrit 41.5 % (39.0-52.0); Hemoglobin 13.7 g/dL (13.0-18.0); Mean Corpuscular Hgb 27.3 pg (27.0-31.0); Mean Corpuscular Volume 82.7 fL (80.0-94.0); Mean Platelet Volume 11.5 fL (7.4-10.4); Platelet Count 160 10^3/uL (130-400); Red Blood Cell Count 5.02 10^6/uL (4.70-6.10); White Blood Cell Count 8.1 10^3/uL (4.8-10.8)
[2024-07-25 06:51] LABS: Blood Urea Nitrogen 34 mg/dl (9-20); Calcium 9.8 mg/dl (8.4-10.2); Carbon Dioxide 27 mmol/L (22-30); Chloride 102 mmol/L (98-107); Estimated Creatinine Clearance 100 ml/min; Glucose 96 mg/dl (70-99); Potassium 4.4 mmol/L (3.5-5.1); Sodium 139 mmol/L (135-145); eGFR > 60.00
[2024-07-25] MEDS: ELIQUIS 5 MG PO ×2 (07:47→21:22)
[2024-07-25] MEDS: PROTONIX 40 MG PO (07:47)
[2024-07-25] MEDS: SINEMET 25-100 2 TABLET PO ×2 (07:47→22:52)
[2024-07-25] MEDS: ASPIR LOW (ENTERIC COATED) 81 MG PO (07:48)
[2024-07-25] MEDS: ProAmatine 5 MG PO ×3 (07:48→17:15)
--- NOTE | 2024-07-25 10:53 | CM ---
MARIAN reviewed chart, patient seen bedside, reports no needs at this time. CM will place [facility] referral to [facility], patient will require script for home therapy upon discharge. CM will continue to follow for all discharge planning needs.
Plan; home with continuance of [facility], will need script upon d.c.
[2024-07-25] MEDS: SINEMET 25-100 1.5 TABLET PO ×2 (12:00→17:14)
--- NOTE | 2024-07-25 12:23 | W.PN.HOSP.TC ---
Addendum entered and electronically signed by Ajay Roberson MD 07/25/24 12:53:
I saw and evaluated the patient. I reviewed the resident�s note and agree with findings and plan as documented in the resident�s note.
Syncope
Orthostatic hypotension
-Patient likely having episodes of orthostasis causing patient to pass out while sitting in wheelchair.
-Patient have Parkinson's disease and functionally paraplegic and likely have autonomic dysfunction/loss of lower extremity vascular tone
-Patient got NS 500 mL fluid bolus in ER
-Hold metoprolol/Imdur/lisinopril
-Compression stockings if able to be used (patient have contraction lower ext)
-Patient witnessed syncopal episode and was found to be orthostatic while sitting in chair yesterday started on midodrine 5 mg every 8 hour
-Requested patient to be set up in chair as much as possible to catch any further orthostatic episode.
Rajiv Dreyfus muscular dystrophy
Parkinson's disease
Functional paraplegia
-Patient requires travel assistant to get to wheelchair
CAD/CABG
-Continue home regimen of atorvastatin/Eliquis
BPH
-Flomax can potentially add to orthostasis issues well, we will start with discontinuing blood pressure medications for
Parkinson's disease
-continue on home dose sinemet
Full code
Spouse was concerned with continual syncopal episode. Continue monitoring for orthostasis as midodrine has been started yesterday.
Potential discharge to home once medically stable
Original Note:
Today's Communication/Plan
-
Continue getting patient to sit upright on chair, continue measuring orthostatic vitals, monitor for any continued hypotension
Assessment / Plan
Assessment / Plan
Assessment:
73-year-old male with a past medical history of [place]-Dreifuss muscular dystrophy, Parkinson's, coronary artery disease, peripheral arterial occlusive disease, persistent A-fib, primary hypertension, orthostatic hypotension came to the [place] ED
on 07/23/2024 due to recent syncopal event at his neurologist clinic. In the ED he was found to have hypotension, and his hypertensive medications were held, and patient was admitted for further monitoring. While admitted patient also had another
witnessed event of hypotension secondary to sitting upright. Patient was started on midodrine, and will undergo more orthostatic vitals.
Plan
#Syncope and orthostatic hypotension
- Most likely secondary to Parkinson's, loss of lower extremity vascular tone due to persistent disease
- Holding antihypertensives, continue treatment with scheduled midodrine
- No acute events of syncope overnight
- Continue PT evaluation, continue orthostatic vitals
- Abdominal binder and compression therapy continue
#Parkinson's disease
- Continue carbidopa-levodopa.
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
#Functional paraplegia
- Progressive, diagnosed in his 40s.
- Followed a neurogeneticist at [facility]
- Possibly contributing to/causing his presentation.
- Continue getting patient out of the bed and seeing if there is any hypotensive episodes
#Essential hypertension
- Hold hypertensives
- Continue monitoring blood pressure
#Permanent atrial fibrillation
- Monitor on telemetry
- Continue Eliquis and hold metoprolol
#Reduced ejection fraction as seen on echo in 2022
#History of coronary artery disease
#Peripheral arterial occlusive disease, lower extremity vascular disease may be contributing to symptoms
- 40% in 2022, without symptoms of heart failure
- Known coronary occlusions that are likely not amenable to interventions
- Less than 50% bilateral internal carotid artery stenosis was seen in the vascular ultrasound on 07/22/2024
- Continue aspirin
- Continue atorvastatin
#Benign prostatic hyperplasia
- May be contributing to his hypotension, may consider holding
- Continue tamsulosin.
#Nephrolithiasis
- CT A-P with a 2 mm nonobstructing stone in the interpolar left kidney.
- Possibly contributing to hematuria noted on 07-17-24.
- Repeat UA pending.
#Median sternotomy growth
- Needs to follow-up with outpatient dermatology
DVT prophylaxis: Eliquis
Full Code
Anticipated Discharge: Within 24 hours
Subjective/Interval History
-
Date of Service: July 25, 2024
Patient states that he has been feeling much better, reports no adverse events overnight. No incidence of hypotension, syncope overnight.
Objective Data
-
Labs:
Laboratory Results
07/25/24
05:57
WBC 8.1
Hgb 13.7
Hct 41.5
Plt Count 160
Sodium 139
Potassium 4.4
Chloride 102
Carbon Dioxide 27
BUN 34 H
Creatinine 0.7
Glucose 96
Calcium 9.8
Vital Signs:
Vital Signs
Temp Pulse Resp BP Pulse Ox
98.3 F 88 18 146/98 96
07/25/24 11:04 07/25/24 11:04 07/25/24 11:04 07/25/24 12:00 07/25/24 11:04
I&O
07/24/24 07/25/24 07/26/24
06:59 06:59 06:59
Intake Total 220 / 220 960 / 960
Output Total 750 / 750 1075 / 1075
Balance -530 / -530 -115 / -115
Review of Systems
-
History Source: Patient
Constitutional: Reports No Symptoms
EENT: Reports No Symptoms Reported
Respiratory: Denies Cough or Wheezing
Cardiac: Denies Chest Pain, Palpitations or Syncope
Abdomen/GI: Denies Abdominal Pain, Nausea or Vomiting
Genitourinary: Reports No Symptoms
Musculoskeletal: Reports Muscle Weakness
Skin: Reports No Symptoms
Neuro: Reports Tremors; Denies Dizzy or Weakness
Endocrine: Reports No Symptoms
Hematologic / Lymphatic: Reports No Symptoms
Physical Exam
-
General: No Apparent Distress, Comfortable and Conversant
HEENT: Normocephalic and Atraumatic
Respiratory: Clear to Auscultation and Non Labored Respirations
Cardiac: S1/S2 and Irregular Rhythm (A-fib)
GI: Soft, Nontender and Nondistended
Musculoskeletal: No Clubbing, No Cyanosis and No Edema
Skin: Warm and Dry
Neuro: Awake, Alert, Oriented, Tremors (resting and intention) and Other (Lower extremity motor strength 1/5 - upper 4/5)
Psych: Calm and Intact Judgement/Insight
Data Reviewed
-
Labs: Labs Reviewed by me, Discussed with Physician, Discussed with Nurse and Discussed with Patient
[2024-07-25] MEDS: LIPITOR 40 MG PO (21:22)
[2024-07-25] MEDS: FLOMAX 0.4 MG PO (21:23)
[2024-07-26] VITALS (8 sets, daily range): BP systolic 119–141; BP diastolic 64–88; PULSE 85–95
[2024-07-26] MEDS: TYLENOL 650 MG PO (04:54)
[2024-07-26 06:40] LABS: Hematocrit 41.7 % (39.0-52.0); Hemoglobin 13.9 g/dL (13.0-18.0); Mean Corp Hgb Conc. 33.3 g/dL (33.0-37.0); Mean Corpuscular Volume 81.1 fL (80.0-94.0); Mean Platelet Volume 11.5 fL (7.4-10.4); Platelet Count 175 10^3/uL (130-400); Red Blood Cell Count 5.14 10^6/uL (4.70-6.10); Red Cell Dist. Width 13.7 % (11.5-14.5); White Blood Cell Count 7.5 10^3/uL (4.8-10.8)
[2024-07-26 07:07] LABS: Blood Urea Nitrogen 31 mg/dl (9-20); Calcium 9.7 mg/dl (8.4-10.2); Carbon Dioxide 27 mmol/L (22-30); Chloride 105 mmol/L (98-107); Estimated Creatinine Clearance 117 ml/min; Glucose 104 mg/dl (70-99); Potassium 4.3 mmol/L (3.5-5.1); Sodium 139 mmol/L (135-145); eGFR > 60.00
[2024-07-26] MEDS: ProAmatine 5 MG PO ×3 (09:32→18:46)
[2024-07-26] MEDS: PROTONIX 40 MG PO (09:32)
[2024-07-26] MEDS: ELIQUIS 5 MG PO ×2 (09:32→21:43)
[2024-07-26] MEDS: ASPIR LOW (ENTERIC COATED) 81 MG PO (09:32)
[2024-07-26] MEDS: MUCINEX 600 MG PO ×2 (09:33→21:40)
[2024-07-26] MEDS: SINEMET 25-100 2 TABLET PO ×2 (09:38→22:31)
--- NOTE | 2024-07-26 11:02 | W.PN.HOSP.TC ---
Addendum entered and electronically signed by Phill Mendoza MD 07/26/24 22:28:
Attending Addendum-
I saw and evaluated the patient. I reviewed the resident�s note and agree with findings and plan as documented in the resident�s note. Sub: Seen with present doing much of the talking. Patient states he feels weak but wants to go home. No
further syncopal events. Denies CP. Full 12 point ROS reviewed and negative except as documented Exam: Vitals reviewed in chart GEN-NAD heart RRR lungs clear abd soft LE +1 b/l LE edema
#Syncope and orthostatic hypotension
- Most likely secondary to Parkinson's/autonomic dysfunction
- restart metoprolol
- continue treatment with scheduled midodrine
- No acute events of syncope overnight
- Continue PT evaluation, continue orthostatic vitals
- Abdominal binder and compression therapy continue
#Parkinson's disease
- Continue carbidopa-levodopa.
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
#Freeburg-Dreifuss muscular dystrophy
#Functional paraplegia
- Progressive, diagnosed in his 40s.
- Followed a neurogeneticist at [facility]
- Possibly contributing to/causing his presentation.
- patient is WC bound at baseline
#Essential hypertension
- restart metoprolol
- hold isosorbide and lisinopril
- Continue monitoring blood pressure
#Permanent atrial fibrillation
- Monitor on telemetry
- Continue Eliquis and metoprolol
# H/O CVA
- cont eliquis and statin
#Chronic HFrEF
#History of coronary artery disease/CAGB
#Peripheral arterial occlusive disease, lower extremity vascular disease may be contributing to symptoms
- 40% in 2022, without symptoms of heart failure
- Known coronary occlusions that are likely not amenable to interventions
- Less than 50% bilateral internal carotid artery stenosis was seen in the vascular ultrasound on 07/22/2024
- Continue aspirin
- Continue atorvastatin
#Benign prostatic hyperplasia
- May be contributing to his hypotension, may consider holding
- Continue tamsulosin.
#Nephrolithiasis
- CT A-P with a 2 mm nonobstructing stone in the interpolar left kidney.
- Possibly contributing to hematuria noted on 07-17-24.
- Repeat UA pending.
#Median sternotomy growth
- Needs to follow-up with outpatient dermatology
DVT prophylaxis: Eliquis
Full Code
DC in am
Time spent coordinating care, review of plan of care with resident, personally reviewed records in EMR, med rec, consults, notes, labs, radiology, d/w nursing and POA� 53 mins
Original Note:
Today's Communication/Plan
-
Restart low-dose metoprolol with hold parameters and continue to closely monitor blood pressures
Continue to check orthostatic vitals
Assessment / Plan
Assessment / Plan
Assessment:
73-year-old male with a past medical history of Freeburg-Dreifuss muscular dystrophy, Parkinson's, coronary artery disease, peripheral arterial occlusive disease, persistent A-fib, primary hypertension, orthostatic hypotension came to the [place] ED
on 07/23/2024 due to recent syncopal event at his neurologist clinic. In the ED he was found to have hypotension, and his hypertensive medications were held, and patient was admitted for further monitoring. While admitted patient also had another
witnessed event of hypotension secondary to sitting upright.
Plan
#Syncope and orthostatic hypotension
- Most likely secondary to Parkinson's, loss of lower extremity vascular tone due to persistent disease
- Continue PT evaluation, continue orthostatic vitals
- Continue abdominal binder and compression therapy
- Continue treatment with scheduled midodrine
- No acute events of syncope overnight
#Parkinson's disease
- Continue carbidopa-levodopa
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
#Freeburg-Dreifuss muscular dystrophy
#Functional paraplegia
- Progressive, diagnosed in his 40s.
- Follows a neurogeneticist at [facility]
- Possibly contributing to/causing his presentation
- Continue getting patient out of the bed and seeing if there is any hypotensive episodes
#Essential hypertension
- Will restart low-dose metoprolol with hold parameters given blood pressure is stable
- Continue monitoring blood pressure
#Permanent atrial fibrillation
- Monitor on telemetry
- Continue Eliquis
#Reduced ejection fraction as seen on echo in 2022
#History of coronary artery disease
#Peripheral arterial occlusive disease, lower extremity vascular disease may be contributing to symptoms
- 40% in 2022, without symptoms of heart failure
- Known coronary occlusions that are likely not amenable to interventions
- Less than 50% bilateral internal carotid artery stenosis was seen in the vascular ultrasound on 07/22/2024
- Patient sees Dr. Alvarez at his office
- Continue atorvastatin
#Benign prostatic hyperplasia
- May be contributing to his hypotension
- Continue tamsulosin
#Nephrolithiasis
- CT A-P with a 2 mm nonobstructing stone in the interpolar left kidney
- Possibly contributing to hematuria noted on 07-17-24
- Repeat UA negative
DVT prophylaxis Eliquis
Full Code
Anticipated Discharge: Within 24 hours
Subjective/Interval History
-
Date of Service: July 26, 2024
Objective Data
-
Labs:
Laboratory Results
07/26/24
06:33
WBC 7.5
Hgb 13.9
Hct 41.7
Plt Count 175
Sodium 139
Potassium 4.3
Chloride 105
Carbon Dioxide 27
BUN 31 H
Creatinine 0.6 L
Glucose 104 H
Calcium 9.7
Vital Signs:
Vital Signs
Temp Pulse Resp BP Pulse Ox
97.8 F 91 18 119/64 95
07/26/24 07:52 07/26/24 07:52 07/26/24 07:52 07/26/24 07:52 07/26/24 07:52
I&O
07/25/24 07/26/24 07/27/24
06:59 06:59 06:59
Intake Total 960 / 960 840 / 840
Output Total 1075 / 1075 1170 / 1170
Balance -115 / -115 -330 / -330
Review of Systems
-
History Source: Patient
Constitutional: Reports No Symptoms
EENT: Reports No Symptoms Reported
Respiratory: Reports No Symptoms
Cardiac: Reports No Symptoms
Abdomen/GI: Reports No Symptoms
Breast: Reports No Symptoms
Genitourinary: Reports No Symptoms
Musculoskeletal: Reports No Symptoms
Skin: Reports No Symptoms
Neuro: Reports No Symptoms
Endocrine: Reports No Symptoms
Hematologic / Lymphatic: Reports No Symptoms
Allergy / Immunology: Reports No Symptoms
Physical Exam
-
General: Well Developed, Well Nourished, No Apparent Distress and Comfortable
HEENT: Normocephalic
Respiratory: Clear to Auscultation
Cardiac: Regular Rhythm and S1/S2
Breast: Deferred by me
GI: Soft, Nontender, Nondistended and Normal Bowel Sounds
Genito-urinary: No Costovertebral Tender
Musculoskeletal: No Clubbing, No Cyanosis and Other (Contracture in b/l lower extremities (left greater than right), patient uses wheelchair at home)
Skin: Warm
Neuro: Awake, Alert, Oriented and AO x 3
Psych: Calm
--- NOTE | 2024-07-26 12:08 | CM ---
CM following re: discharge planning.
Reviewed pt's chart, met with pt.
Pt reports he lives with spouse and daughter in law in a 2SH, has 3 supportive children.
PT and OT evaluations noted - home PT/OT recommended. Pt is aware, expressed his agreement. IMM reviewed, placed on chart, pt has a copy.
Pt reports he is current with [facility] and he will resume those services upon the discharge.
Please provide as script for outpatient therapy.
Please fax discharge instruction to [facility] at [phone]
D/C plan: home with resumptions of [facility] and family support. pt stated his spouse to transport home.
CM will follow with discharge plan updates as hospitalization progresses
[2024-07-26] MEDS: SINEMET 25-100 1.5 TABLET PO ×2 (13:43→18:46)
--- NOTE | 2024-07-26 14:54 | CM ---
Call received from Concepc[place] Hui, of patient, asking for return call from CM, and clarifying that /[facility] comes into his home. Update to CM.l
[2024-07-26] MEDS: FLOMAX 0.4 MG PO (21:40)
[2024-07-26] MEDS: LIPITOR 40 MG PO (21:40)
[2024-07-26] MEDS: TOPROL XL 12.5 MG PO (21:43)
[2024-07-27] VITALS (8 sets, daily range): BP systolic 119–156; BP diastolic 71–89; PULSE 92
--- NOTE | 2024-07-27 07:59 | PN.CDI ---
CDI
- -
CDI:
Physician Documentation Request
Admit Date: 07/25/24 11:03
Dear Doctor Aaron,
Please review the following and provide your response in the progress notes.
Clinical Indicators:
PN, 4/
#Syncope and orthostatic hypotension
#...- Most likely secondary to Parkinson's, loss of lower extremity vascular tone
#...due to persistent disease
#Parkinson's disease
#...- Autonomic dysfunction most likely secondary to Parkinson's disease
#Functional paraplegia
#Peripheral arterial occlusive disease, lower extremity vascular disease
#...may be contributing to symptoms
Based on the above and your clinical assessment, please clarify in the progress notes, the appropriate diagnosis, if significant, that supports the above abnormalities and additional evaluation, monitoring and/or treatment rendered:
Multi-system degeneration of the autonomic nervous system
Neurogenic orthostatic hypotension
Other(please specify)
Use of terms such as suspected, likely, concern for, or probable (associated with a specific diagnosis that is being evaluated, monitored, or treated as if it exists) are acceptable and can be coded in the inpatient setting, when documented at the
time of discharge.
Thank you,
Meme Car RN BSN CCDS
CDI Specialist
please contact via tiger text
Please use your independent medical judgment in providing your response.
[2024-07-27] MEDS: ELIQUIS 5 MG PO ×2 (08:03→21:12)
[2024-07-27] MEDS: ProAmatine 5 MG PO ×3 (08:03→17:55)
[2024-07-27] MEDS: TOPROL XL 12.5 MG PO (08:04)
[2024-07-27] MEDS: PROTONIX 40 MG PO (08:04)
[2024-07-27] MEDS: ASPIR LOW (ENTERIC COATED) 81 MG PO (08:04)
[2024-07-27] MEDS: MUCINEX 600 MG PO ×2 (08:05→21:12)
[2024-07-27] MEDS: SINEMET 25-100 2 TABLET PO ×2 (08:06→22:56)
[2024-07-27 08:15] LABS: % Basophils 0.3 % (0-2); % Eosinophils 0.9 % (0-6); % Immature Granulocytes 0.3 % (0-0.5); % Monocytes 8.3 % (1.7-9.3); % Neutrophils 54.2 % (42.2-75.2); Absolute Eosinophils 0.1 10^3/uL (0-0.7); Absolute Lymphocytes 2.8 10^3/uL (1.2-3.4); Absolute Monocytes 0.6 10^3/uL (0.1-0.6); Absolute Neutrophils 4.2 10^3/uL (1.4-6.5); Hematocrit 43.3 % (39.0-52.0); Hemoglobin 14.4 g/dL (13.0-18.0); Mean Corp Hgb Conc. 33.3 g/dL (33.0-37.0); Mean Corpuscular Hgb 27.2 pg (27.0-31.0); Mean Corpuscular Volume 81.7 fL (80.0-94.0); Mean Platelet Volume 11.5 fL (7.4-10.4); Nucleated Red Blood Cells % 0 % (-); Platelet Count 188 10^3/uL (130-400); Red Cell Dist. Width 13.9 % (11.5-14.5); White Blood Cell Count 7.7 10^3/uL (4.8-10.8)
--- NOTE | 2024-07-27 08:39 | W.PN.HOSP.TC ---
Addendum entered and electronically signed by Phill Mendoza MD 07/27/24 20:58:
Attending Addendum-
I saw and evaluated the patient. I reviewed the resident�s note and agree with findings and plan as documented in the resident�s note. Sub: Seen with present doing much of the talking. 'he cant go home i dont want to bring him right back like i
did before' Patient states he feels greatley improved. BB reinitiated without issue. No further syncopal events. Denies CP. Full 12 point ROS reviewed and negative except as documented Exam: Vitals reviewed in chart GEN-NAD heart RRR lungs clear
abd soft LE +1 b/l LE edema
#Neurogenic orthostatic hypotension/syncope
- secondary to Parkinson's/autonomic dysfunction
- restart metoprolol
- continue treatment with scheduled midodrine-decrease to BID
- No acute events of syncope overnight
- Continue PT evaluation, continue orthostatic vitals
- POA refusing SNF
- Abdominal binder and compression therapy continue
#Parkinson's disease
- Continue carbidopa-levodopa.
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
#Overton-Dreifuss muscular dystrophy
#Functional paraplegia
- Progressive, diagnosed in his 40s.
- Followed a neurogeneticist at [facility]
- patient is WC bound at baseline
#Essential hypertension
- cont metoprolol XL change to once daily dosing
- hold isosorbide and lisinopril
- Continue monitoring blood pressure
#Permanent atrial fibrillation
- Monitor on telemetry
- Continue Eliquis and metoprolol XL
# H/O CVA
- cont eliquis asa and atorvastatin
- patient and POA made aware of diagnosis
-reviewed MRI from 07/22
#Chronic HFrEF
#History of coronary artery disease/CABG
#Peripheral arterial occlusive disease, lower extremity vascular disease
- EF 40% in 2022, without symptoms of heart failure
- Known coronary occlusions that are likely not amenable to interventions
- Less than 50% bilateral internal carotid artery stenosis was seen in the vascular ultrasound on 07/22/2024
- Continue aspirin, toprol XL, hold adiel due to orthostasis may start aldactone as OP
- Continue atorvastatin
#Benign prostatic hyperplasia
- Continue tamsulosin.
#Nephrolithiasis
- CT A-P with a 2 mm nonobstructing stone in the interpolar left kidney.
- urinating as usual
#Median sternotomy growth
- Needs to follow-up with outpatient dermatology
DVT prophylaxis: Eliquis
Full Code
DC in am to HOME
Time spent coordinating care, review of plan of care with resident, personally reviewed records in EMR, med rec, consults, notes, labs, radiology, d/w nursing and POA� 52 mins
Original Note:
Today's Communication/Plan
-
Continue current medications
Monitor orthostatic vitals
Discharge planning for tomorrow
Assessment / Plan
Assessment / Plan
Assessment:
73-year-old male with a past medical history of Overton-Dreifuss muscular dystrophy, Parkinson's, coronary artery disease, peripheral arterial occlusive disease, persistent A-fib, primary hypertension, orthostatic hypotension came to the [facility] ED
on 07/23/2024 due to recent syncopal event at his neurologist clinic. In the ED he was found to have hypotension, and his hypertensive medications were held, and patient was admitted for further monitoring. While admitted patient also had another
witnessed event of hypotension secondary to sitting upright. No overnight events.
Plan
#Syncope and orthostatic hypotension
- Most likely secondary to Parkinson's, loss of lower extremity vascular tone due to persistent disease
- Continue PT evaluation, continue orthostatic vitals
- Continue abdominal binder and compression therapy
- Continue treatment with scheduled midodrine and metoprolol XL
- No acute events of syncope overnight
- Patient is not orthostatic and is medically stable for discharge, spouse is concerned about blood pressure drop with metoprolol XL
#Parkinson's disease
- Continue carbidopa-levodopa
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
#Overton-Dreifuss muscular dystrophy
#Functional paraplegia
- Progressive, diagnosed in his 40s.
- Follows a neurogeneticist at [facility]
- Possibly contributing to/causing his presentation
- Continue getting patient out of the bed and seeing if there is any hypotensive episodes
#Essential hypertension
- Continue low-dose metoprolol with hold parameters given blood pressure is stable
- Continue monitoring blood pressure
#Permanent atrial fibrillation
- Monitor on telemetry
- Continue Eliquis
#Reduced ejection fraction as seen on echo in 2022
#History of coronary artery disease
#Peripheral arterial occlusive disease, lower extremity vascular disease may be contributing to symptoms
- 40% in 2022, without symptoms of heart failure
- Known coronary occlusions that are likely not amenable to interventions
- Less than 50% bilateral internal carotid artery stenosis was seen in the vascular ultrasound on 07/22/2024
- Patient sees Dr. Alvarez. Per spouse request, contacted Dr. Alvarez regarding recent MRI findings concerning for chronic infarct
- Continue atorvastatin
#Benign prostatic hyperplasia
- May be contributing to his hypotension
- Continue tamsulosin
#Nephrolithiasis
- CT A-P with a 2 mm nonobstructing stone in the interpolar left kidney
- Possibly contributing to hematuria noted on 07-17-24
- Repeat UA negative
DVT prophylaxis Eliquis
Full Code
Anticipated Discharge: Within 24 hours
Subjective/Interval History
-
Date of Service: July 27, 2024
Objective Data
-
Labs:
Laboratory Results
07/27/24
07:29
WBC 7.7
Hgb 14.4
Hct 43.3
Plt Count 188
Sodium Pending
Potassium Pending
Chloride Pending
Carbon Dioxide Pending
BUN Pending
Creatinine Pending
Glucose Pending
Calcium Pending
Vital Signs:
Vital Signs
Temp Pulse Resp BP Pulse Ox
97.8 F 90 16 127/83 95
07/27/24 03:06 07/27/24 08:04 07/27/24 03:06 07/27/24 08:04 07/27/24 03:06
I&O
07/26/24 07/27/24 07/28/24
06:59 06:59 06:59
Intake Total 840 / 840 660 / 660
Output Total 1170 / 1170 900 / 900
Balance -330 / -330 -240 / -240
Review of Systems
-
History Source: Patient
Constitutional: Reports No Symptoms
EENT: Reports No Symptoms Reported
Respiratory: Reports No Symptoms
Cardiac: Reports No Symptoms
Abdomen/GI: Reports No Symptoms
Breast: Reports No Symptoms
Genitourinary: Reports No Symptoms
Musculoskeletal: Reports No Symptoms
Skin: Reports No Symptoms
Neuro: Reports No Symptoms
Endocrine: Reports No Symptoms
Hematologic / Lymphatic: Reports No Symptoms
Allergy / Immunology: Reports No Symptoms
Physical Exam
-
General: Well Developed, Well Nourished, No Apparent Distress and Comfortable
HEENT: Normocephalic
Respiratory: Clear to Auscultation
Cardiac: Regular Rhythm and S1/S2
GI: Soft, Nontender, Nondistended and Normal Bowel Sounds
Genito-urinary: No Costovertebral Tender
Musculoskeletal: No Clubbing, No Cyanosis and No Edema
Skin: Warm
Neuro: Awake, Alert, Oriented and AO x 3
Hematologic / Lymphatic: No Lymphadenopathy
Psych: Calm
[2024-07-27 08:48] LABS: Blood Urea Nitrogen 28 mg/dl (9-20); Calcium 9.9 mg/dl (8.4-10.2); Carbon Dioxide 28 mmol/L (22-30); Chloride 103 mmol/L (98-107); Estimated Creatinine Clearance 117 ml/min; Glucose 100 mg/dl (70-99); Potassium 4.5 mmol/L (3.5-5.1); Sodium 139 mmol/L (135-145); eGFR > 60.00
[2024-07-27] MEDS: SINEMET 25-100 1.5 TABLET PO ×2 (13:01→18:00)
[2024-07-27] MEDS: SENOKOT-S 1 TABLET PO (13:02)
--- NOTE | 2024-07-27 13:10 | CM ---
CM following re: discharge planning.
Reviewed pt's chart, met with pt and pt's spouse at bedside.
Pt reports he lives with spouse and daughter in law in a 2SH, has 3 supportive children.
Pt reports he is current with [facility] and he will resume those services upon the discharge.
CM had a long meeting with pt's spouse who is a great advocate to her . Pt's spouse stated she called pt's advocate yesterday with concerns regarding early discharge especially pt's has clinical complication and to make sure her
is medically stable to avoid further hospitalization. Pt's spouse has been notified that MD team will discuss with her and the pt a safe discharge plan and pt will be discharged when medically stable.
Pt's spouse stated that pt has been receiving [facility] at home and pt's spouse was assured that usually [facility] provides PT/OT services at home.
Pt's spouse stated she will transport pt home, she has w/c accessible van.
Please provide as script for outpatient therapy.
Please fax discharge instruction to [facility] at [phone]
D/C plan: home with resumptions of [facility] and family support. Spouse to transport.
CM will follow with discharge plan updates as hospitalization progresses
[2024-07-27] MEDS: LIPITOR 40 MG PO (21:12)
[2024-07-27] MEDS: FLOMAX 0.4 MG PO (21:12)
[2024-07-27] MEDS: TOPROL XL PO (21:24)
[2024-07-27] MEDS: TYLENOL 650 MG PO (23:54)
[2024-07-28] VITALS (7 sets, daily range): BP systolic 100–151; BP diastolic 64–92
[2024-07-28] MEDS: ASPIR LOW (ENTERIC COATED) 81 MG PO (07:43)
[2024-07-28] MEDS: ELIQUIS 5 MG PO ×2 (07:44→21:39)
[2024-07-28] MEDS: MUCINEX 600 MG PO ×2 (07:44→21:40)
[2024-07-28] MEDS: TOPROL XL 25 MG PO (07:44)
[2024-07-28] MEDS: ProAmatine 5 MG PO ×2 (07:45→18:00)
[2024-07-28] MEDS: PROTONIX 40 MG PO (07:45)
[2024-07-28] MEDS: SINEMET 25-100 2 TABLET PO ×2 (07:46→23:00)
[2024-07-28] MEDS: SENOKOT-S 1 TABLET PO (07:53)
[2024-07-28 08:05] LABS: % Basophils 0.4 % (0-2); % Eosinophils 0.8 % (0-6); % Immature Granulocytes 0.4 % (0-0.5); % Lymphocytes 30.7 % (20.5-51.1); % Monocytes 8.7 % (1.7-9.3); Absolute Eosinophils 0.1 10^3/uL (0-0.7); Absolute Lymphocytes 2.5 10^3/uL (1.2-3.4); Absolute Monocytes 0.7 10^3/uL (0.1-0.6); Absolute Neutrophils 4.9 10^3/uL (1.4-6.5); Hematocrit 42.3 % (39.0-52.0); Hemoglobin 14.2 g/dL (13.0-18.0); Mean Corp Hgb Conc. 33.6 g/dL (33.0-37.0); Mean Corpuscular Hgb 27.5 pg (27.0-31.0); Mean Corpuscular Volume 81.8 fL (80.0-94.0); Mean Platelet Volume 11.4 fL (7.4-10.4); Nucleated Red Blood Cells % 0 % (-); Platelet Count 180 10^3/uL (130-400); Red Blood Cell Count 5.17 10^6/uL (4.70-6.10); Red Cell Dist. Width 13.9 % (11.5-14.5); White Blood Cell Count 8.2 10^3/uL (4.8-10.8)
[2024-07-28 08:46] LABS: Blood Urea Nitrogen 33 mg/dl (9-20); Calcium 9.7 mg/dl (8.4-10.2); Carbon Dioxide 25 mmol/L (22-30); Chloride 103 mmol/L (98-107); Estimated Creatinine Clearance 117 ml/min; Glucose 106 mg/dl (70-99); Potassium 4.6 mmol/L (3.5-5.1); Sodium 140 mmol/L (135-145); eGFR > 60.00
--- NOTE | 2024-07-28 10:16 | W.PN.HOSP.TC ---
Addendum entered and electronically signed by Phill Mendoza MD 07/28/24 22:40:
documentation error- patient not on doxycycline and does not have a UTI
Addendum entered and electronically signed by Phill Mendoza MD 07/28/24 21:41:
Attending Addendum-
I saw and evaluated the patient. I reviewed the resident�s note and agree with findings and plan as documented in the resident�s note. Sub: Seen with present. Patient complains of feels unwell and shaky. 'I feel sick doc' Compalins if wet
cough. No further syncopal events. Denies CP/fevers chills. Full 12 point ROS reviewed and negative except as documented Exam: Vitals reviewed in chart GEN-NAD heart RRR lungs scattered rhonchi abd soft LE +1 b/l LE edema
#Neurogenic orthostatic hypotension/syncope
- secondary to Parkinson's/autonomic dysfunction
- cont metoprolol
- continue treatment with scheduled midodrine-decrease to BID
- No acute events of syncope overnight
- Continue PT evaluation, continue orthostatic vitals
- POA refusing SNF
- Abdominal binder and compression therapy continue
# PNA-Left Mid Lung
- CXR personally reviewed
- DC doxy start levaquin
- seen by speech and cleared
# UTI
- ecoli
- sensi to Levaquin
#Parkinson's disease
- Continue carbidopa-levodopa.
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
#Functional paraplegia
- Progressive, diagnosed in his 40s.
- Followed a neurogeneticist at [facility]
- patient is WC bound at baseline
#Essential hypertension
- cont metoprolol XL change to once daily dosing
- hold isosorbide and lisinopril
- Continue monitoring blood pressure
#Permanent atrial fibrillation
- Monitor on telemetry
- Continue Eliquis and metoprolol XL
# H/O CVA
- cont eliquis asa and atorvastatin
- patient and POA made aware of diagnosis
- reviewed MRI from 07/22
#Chronic HFrEF
#History of coronary artery disease/CABG
#Peripheral arterial occlusive disease, lower extremity vascular disease
- EF 40% in 2022, without symptoms of heart failure
- Known coronary occlusions that are likely not amenable to interventions
- Less than 50% bilateral internal carotid artery stenosis was seen in the vascular ultrasound on 07/22/2024
- Continue aspirin, toprol XL, hold adiel due to orthostasis may start Aldactone as OP
- Continue atorvastatin
#Benign prostatic hyperplasia
- Continue tamsulosin.
#Nephrolithiasis
- CT A-P with a 2 mm nonobstructing stone in the interpolar left kidney.
- urinating as usual
#Median sternotomy growth
- Needs to follow-up with outpatient dermatology
DVT prophylaxis: Eliquis
Full Code
DC to HOME when medically stable 24-48 hours- pt and refusing SNF
Time spent coordinating care, review of plan of care with resident, personally reviewed records in EMR, med rec, consults, notes, labs, radiology, d/w nursing and POA� 55 mins
Original Note:
Today's Communication/Plan
-
Start antibiotics for pneumonia
Continue blood pressure medications
Assessment / Plan
Assessment / Plan
Assessment:
73-year-old male with a past medical history of [place]-Dreifuss muscular dystrophy, Parkinson's, coronary artery disease, peripheral arterial occlusive disease, persistent A-fib, primary hypertension, orthostatic hypotension came to the [place] ED
on 07/23/2024 due to recent syncopal event at his neurologist clinic. In the ED he was found to have hypotension, and his hypertensive medications were held, and patient was admitted for further monitoring. While admitted patient also had another
witnessed event of hypotension secondary to sitting upright. Patient notes productive cough since yesterday.
Plan
#Syncope and orthostatic hypotension
- Most likely secondary to Parkinson's, loss of lower extremity vascular tone due to persistent disease
- Continue PT evaluation, continue orthostatic vitals
- Continue abdominal binder and compression therapy
- Continue treatment with scheduled midodrine and metoprolol XL
- No acute events of syncope overnight
- Patient is not orthostatic and is medically stable for discharge, spouse is concerned about blood pressure drop with metoprolol XL
#Cough
- CXR: There is a left midlung opacity suspicious for pneumonia
- Etiology unclear, community-acquired pneumonia versus aspiration pneumonia
- Speech eval from 07/22/2024 showed no overt signs of aspiration on swallowing
- Started po Levaquin 500mg daily x5 days
#Parkinson's disease
- Continue carbidopa-levodopa
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
#Functional paraplegia
- Progressive, diagnosed in his 40s.
- Follows a neurogeneticist at [facility]
- Possibly contributing to/causing his presentation
- Continue getting patient out of the bed and seeing if there is any hypotensive episodes
#Essential hypertension
- Continue low-dose metoprolol with hold parameters given blood pressure is stable
- Continue monitoring blood pressure
#Permanent atrial fibrillation
- Monitor on telemetry
- Continue Eliquis
#Reduced ejection fraction as seen on echo in 2022
#History of coronary artery disease
#Peripheral arterial occlusive disease, lower extremity vascular disease may be contributing to symptoms
- 40% in 2022, without symptoms of heart failure
- Known coronary occlusions that are likely not amenable to interventions
- Less than 50% bilateral internal carotid artery stenosis was seen in the vascular ultrasound on 07/22/2024
- Patient sees Dr. Alvarez. Per spouse request, contacted Dr. Alvarez regarding recent MRI findings concerning for chronic infarct
- Continue atorvastatin
#Benign prostatic hyperplasia
- May be contributing to his hypotension
- Continue tamsulosin
#Nephrolithiasis
- CT A-P with a 2 mm nonobstructing stone in the interpolar left kidney
- Possibly contributing to hematuria noted on 07-17-24
- Repeat UA negative
DVT prophylaxis Eliquis
Full Code
Anticipated Discharge: Within 24 hours
Subjective/Interval History
-
Date of Service: July 28, 2024
Objective Data
-
Labs:
Laboratory Results
07/28/24
07:30
WBC 8.2
Hgb 14.2
Hct 42.3
Plt Count 180
Sodium 140
Potassium 4.6
Chloride 103
Carbon Dioxide 25
BUN 33 H
Creatinine 0.6 L
Glucose 106 H
Calcium 9.7
Vital Signs:
Vital Signs
Temp Pulse Resp BP Pulse Ox
98 F 95 18 131/73 96
07/28/24 07:00 07/28/24 07:00 07/28/24 07:00 07/28/24 07:45 07/28/24 07:00
I&O
07/27/24 07/28/24 07/29/24
06:59 06:59 06:59
Intake Total 660 / 660 600 / 600
Output Total 900 / 900
Balance -240 / -240 600 / 600
Review of Systems
-
History Source: Patient
Constitutional: Reports No Symptoms
EENT: Reports No Symptoms Reported
Respiratory: Reports Cough
Cardiac: Reports No Symptoms
Abdomen/GI: Reports No Symptoms
Breast: Reports No Symptoms
Genitourinary: Reports No Symptoms
Musculoskeletal: Reports No Symptoms
Skin: Reports No Symptoms
Neuro: Reports No Symptoms
Endocrine: Reports No Symptoms
Hematologic / Lymphatic: Reports No Symptoms
Allergy / Immunology: Reports No Symptoms
Physical Exam
-
General: Well Developed, Well Nourished, No Apparent Distress and Comfortable
HEENT: Normocephalic
Respiratory: Rales
Cardiac: Regular Rhythm and S1/S2
GI: Soft, Nontender, Nondistended and Normal Bowel Sounds
Genito-urinary: No Costovertebral Tender
Musculoskeletal: No Clubbing, No Cyanosis and No Edema
Skin: Warm
Neuro: Awake, Alert and Oriented
Hematologic / Lymphatic: No Lymphadenopathy
Psych: Calm
--- NOTE | 2024-07-28 13:12 | PTCARENOTE ---
called nurse and said she doesn't feel like her looks right. This RN asked the pt if he was okay and he said he was very tired and didnt sleep well last night. BP 151/92, HR 92 pulse ox 97 on RA. No further complaints at this time.
[2024-07-28] MEDS: UNASYN IV (14:33)
[2024-07-28] MEDS: SINEMET 25-100 1.5 TABLET PO ×2 (14:33→18:00)
[2024-07-28] MEDS: MELATONIN 5 MG PO (21:39)
[2024-07-28] MEDS: LIPITOR 40 MG PO (21:39)
[2024-07-28] MEDS: FLOMAX 0.4 MG PO (21:39)
[2024-07-29 03:15] VITALS: BP 136/81
[2024-07-29 07:00] VITALS: BP 126/77
--- NOTE | 2024-07-29 07:19 | W.PN.HOSP.TC ---
Addendum entered and electronically signed by Phill Mendoza MD 07/29/24 23:05:
Attending Addendum-
I saw and evaluated the patient. I reviewed the resident�s note and agree with findings and plan as documented in the resident�s note. Sub: Seen with present. patient wants to go home. feels greatly improved. No further syncopal events. Denies
CP/fevers chills. Full 12 point ROS reviewed and negative except as documented Exam: Vitals reviewed in chart GEN-NAD heart RRR lungs decreased BS @ bases abd soft LE +1 b/l LE edema
#Neurogenic orthostatic hypotension/syncope
- secondary to Parkinson's/autonomic dysfunction
- cont metoprolol XL
- continue treatment with scheduled midodrine BID
- No acute events of syncope overnight
- Continue PT evaluation, continue orthostatic vitals
- POA refusing SNF
- Abdominal binder and compression therapy continue
# PNA-Left Mid Lung
- resolving
- CXR personally reviewed
- cont Levaquin
- seen by speech and cleared
#Parkinson's disease
- Continue carbidopa-levodopa.
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
#Dickens-Dreifuss muscular dystrophy
#Functional paraplegia
- Progressive, diagnosed in his 40s.
- Followed a neurogeneticist at [facility]
- patient is WC bound at baseline
#Essential hypertension
- cont metoprolol XL change to once daily dosing
- hold isosorbide and lisinopril
- Continue monitoring blood pressure
#Permanent atrial fibrillation
- Monitor on telemetry
- Continue Eliquis and metoprolol XL
# H/O CVA
- cont eliquis asa and atorvastatin
- patient and POA made aware of diagnosis
- reviewed MRI from 07/22
#Chronic HFrEF
#History of coronary artery disease/CABG
#Peripheral arterial occlusive disease, lower extremity vascular disease
- EF 40% in 2023, without symptoms of heart failure
- Known coronary occlusions that are likely not amenable to interventions
- Less than 50% bilateral internal carotid artery stenosis was seen in the vascular ultrasound on 07/22/2024
- Continue aspirin, toprol XL, hold adiel due to orthostasis may start Aldactone as OP
- Continue atorvastatin
#Benign prostatic hyperplasia
- Continue tamsulosin.
#Nephrolithiasis
- CT A-P with a 2 mm nonobstructing stone in the interpolar left kidney.
- urinating as usual
#Median sternotomy growth
- Needs to follow-up with outpatient dermatology
DVT prophylaxis: Eliquis
Full Code
DC to HOME pt and refusing SNF
Time spent coordinating care, DC planning, review of DC plan of care with resident, transition of care, review of records, med rec/scripts sent electronically, consults, notes, d/w consultants, nursing, family/, and CM� 33 mins
Original Note:
Today's Communication/Plan
-
Medically stable for discharge today
Continue antibiotic treatment for pneumonia
Outpatient PT OT ST on discharge
Assessment / Plan
Assessment / Plan
Assessment:
73-year-old male with a past medical history of Dickens-Dreifuss muscular dystrophy, Parkinson's, coronary artery disease, peripheral arterial occlusive disease, persistent A-fib, primary hypertension, orthostatic hypotension came to the [place] ED
on 07/23/2024 due to recent syncopal event at his neurologist clinic. In the ED he was found to have hypotension, and his hypertensive medications were held, and patient was admitted for further monitoring. While admitted patient also had another
witnessed event of hypotension secondary to sitting upright. Patient notes cough improving since yesterday. Had trouble sleeping last night.
Plan
#Syncope and orthostatic hypotension
- Most likely secondary to multi-system degeneration of the autonomic nervous system, Parkinson's, loss of lower extremity vascular tone due to peripheral vascular disease
- Continue PT evaluation, continue orthostatic vitals
- Continue abdominal binder and compression therapy
- Continue treatment with scheduled midodrine and metoprolol XL
- No acute events of syncope overnight
- Patient is not orthostatic and is medically stable for discharge
#Cough
- CXR: There is a left midlung opacity suspicious for pneumonia
- Etiology unclear, community-acquired pneumonia versus aspiration pneumonia
- Speech eval from 07/22/2024 showed no overt signs of aspiration on swallowing
- Continue Levaquin 500mg daily x5 days (day 2)
# Insomnia
- Started melatonin
- Patient has trouble sleeping at home, not on any medications
- Outpatient follow-up with PCP
#Parkinson's disease
- Continue carbidopa-levodopa
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
#Dickens-Dreifuss muscular dystrophy
#Functional paraplegia
- Progressive, diagnosed in his 40s.
- Follows a neurogeneticist at [facility]
- Possibly contributing to/causing his presentation
- Continue getting patient out of the bed and seeing if there is any hypotensive episodes
#Essential hypertension
- Continue low-dose metoprolol with hold parameters given blood pressure is stable
- Continue monitoring blood pressure
#Permanent atrial fibrillation
- Monitor on telemetry
- Continue Eliquis
#Reduced ejection fraction as seen on echo in 2022
#History of coronary artery disease
#Peripheral arterial occlusive disease, lower extremity vascular disease may be contributing to symptoms
- 40% in 2022, without symptoms of heart failure
- Known coronary occlusions that are likely not amenable to interventions
- Less than 50% bilateral internal carotid artery stenosis was seen in the vascular ultrasound on 07/22/2024
- Patient sees Dr. Alvarez. Per spouse request, contacted Dr. Alvarez regarding recent MRI findings concerning for chronic infarct
- Continue atorvastatin
#Benign prostatic hyperplasia
- May be contributing to his hypotension
- Continue tamsulosin
#Nephrolithiasis
- CT A-P with a 2 mm nonobstructing stone in the interpolar left kidney
- Possibly contributing to hematuria noted on 07-17-24
- Repeat UA negative
DVT prophylaxis Eliquis
Full Code
Anticipated Discharge: Today
Subjective/Interval History
-
Date of Service: July 29, 2024
Objective Data
-
Labs:
Laboratory Results
07/29/24
06:36
WBC Pending
Hgb Pending
Hct Pending
Plt Count Pending
Sodium Pending
Potassium Pending
Chloride Pending
Carbon Dioxide Pending
BUN Pending
Creatinine Pending
Glucose Pending
Calcium Pending
Vital Signs:
Vital Signs
Temp Pulse Resp BP Pulse Ox
98.6 F 81 20 136/81 95
07/29/24 03:15 07/29/24 03:15 07/29/24 03:15 07/29/24 03:15 07/29/24 03:15
I&O
07/28/24 07/29/24 07/30/24
06:59 06:59 06:59
Intake Total 600 / 600 420 / 420
Output Total 300 / 300
Balance 600 / 600 120 / 120
Review of Systems
-
History Source: Patient
Constitutional: Reports Other (Poor sleep)
EENT: Reports No Symptoms Reported
Respiratory: Reports Cough (Better than yesterday)
Cardiac: Reports No Symptoms
Abdomen/GI: Reports No Symptoms
Breast: Reports No Symptoms
Genitourinary: Reports No Symptoms
Musculoskeletal: Reports No Symptoms
Skin: Reports No Symptoms
Neuro: Reports No Symptoms
Endocrine: Reports No Symptoms
Hematologic / Lymphatic: Reports No Symptoms
Allergy / Immunology: Reports No Symptoms
Physical Exam
-
General: Well Developed, Well Nourished, No Apparent Distress and Comfortable
Respiratory: Rales (Left side)
Cardiac: Regular Rhythm and S1/S2
GI: Soft, Nontender, Nondistended and Normal Bowel Sounds
Genito-urinary: No Costovertebral Tender
Musculoskeletal: No Clubbing and No Cyanosis
Skin: Warm
Neuro: Awake, Alert, Oriented and AO x 3
Psych: Calm
[2024-07-29 07:37] LABS: % Basophils 0.3 % (0-2); % Eosinophils 0.9 % (0-6); % Immature Granulocytes 0.2 % (0-0.5); % Lymphocytes 29.4 % (20.5-51.1); % Monocytes 7.9 % (1.7-9.3); % Neutrophils 61.3 % (42.2-75.2); Absolute Eosinophils 0.1 10^3/uL (0-0.7); Absolute Lymphocytes 2.7 10^3/uL (1.2-3.4); Absolute Monocytes 0.7 10^3/uL (0.1-0.6); Absolute Neutrophils 5.5 10^3/uL (1.4-6.5); Hematocrit 42.3 % (39.0-52.0); Hemoglobin 13.9 g/dL (13.0-18.0); Mean Corp Hgb Conc. 32.9 g/dL (33.0-37.0); Mean Corpuscular Hgb 26.9 pg (27.0-31.0); Mean Corpuscular Volume 81.8 fL (80.0-94.0); Mean Platelet Volume 12.1 fL (7.4-10.4); Nucleated Red Blood Cells % 0 % (-); Platelet Count 184 10^3/uL (130-400); Red Blood Cell Count 5.17 10^6/uL (4.70-6.10); Red Cell Dist. Width 13.9 % (11.5-14.5)
[2024-07-29 08:33] LABS: Blood Urea Nitrogen 34 mg/dl (9-20); Calcium 9.8 mg/dl (8.4-10.2); Carbon Dioxide 25 mmol/L (22-30); Chloride 104 mmol/L (98-107); Estimated Creatinine Clearance 100 ml/min; Glucose 102 mg/dl (70-99); Potassium 4.5 mmol/L (3.5-5.1); Sodium 139 mmol/L (135-145); eGFR > 60.00
[2024-07-29] MEDS: SINEMET 25-100 2 TABLET PO (08:39)
[2024-07-29] MEDS: ELIQUIS 5 MG PO (08:39)
[2024-07-29] MEDS: LEVAQUIN 500 MG PO (08:39)
[2024-07-29] MEDS: TOPROL XL 25 MG PO (08:40)
[2024-07-29] MEDS: PROTONIX 40 MG PO (08:40)
[2024-07-29] MEDS: ASPIR LOW (ENTERIC COATED) 81 MG PO (08:40)
[2024-07-29] MEDS: MUCINEX 600 MG PO (08:40)
[2024-07-29] MEDS: ProAmatine 5 MG PO (08:40)
[2024-07-29 11:00] VITALS: BP 95/54
--- NOTE | 2024-07-29 13:38 | CM ---
CM following re: discharge planning.
Reviewed pt's chart, met with pt and pt's spouse at bedside.
Discharge order noted. both pt and his spouse are aware, expressed their agreement. IMM reviewed yesterday.
Pt's spouse stated she will transport pt home, she has w/c accessible van.
Please provide as script for outpatient therapy.
Please fax discharge instruction to [facility] at [phone]
D/C plan: home today with resumptions of [facility] and family support. Spouse and son to transport by [employer] w/c accessible van.
[2024-07-29] MEDS: SINEMET 25-100 1.5 TABLET PO (14:21)
[2024-07-29 15:00] VITALS: BP 118/78
--- NOTE | 2024-07-29 17:25 | W.DCSUMMARY ---
Addendum entered and electronically signed by Phill Mendoza MD 07/29/24 23:06:
Read, reviewed, and agree. See same day progress note for additional details.
Abhinav Mendoza MD
Original Note:
Documented by User: Malena Walker MD, Resident 07/29/24 17:56
Discharge Summary
Discharge Data
Date of Admission: 07/25/24
Date of Discharge: 07/29/24
-
Pending Results: No
Hospital Course
Discharging Physician: Dr. Malena Vega, Dr. Phill Murphy
Disposition: Home with home health
Primary care physician: Dr. Doug Bond
Principal Discharge diagnosis :
Orthostatic hypotension
Essential hypertension
Chronic Discharge diagnosis :
History of Childress Dreifuss muscular dystrophy
History of Parkinson's disease
Persistent atrial fibrillation
Heart failure with reduced ejection fraction
Hyperlipidemia
Benign prostate hyperplasia
Coronary artery disease status post CABG and stents
Hospital Course :
Patient is 73-year-old man past medical history of MR [place] muscular dystrophy, Parkinson's disease, CAD s/p CABG and stents, HFrEF, hypertension, hyperlipidemia, BPH, persistent A-fib on Eliquis who presented to the ED with complaints of a
syncopal episode while in his neurologist office where he was found to be hypotensive (BP 60/40). Patient had a witnessed orthostatic event while sitting in upright on this admission, was started on midodrine 5 mg every 8. Patient's blood pressure
medications including Imdur, metoprolol, lisinopril were initially held. Patient had no further orthostatic events and his blood pressure continued to stabilize. Patient was restarted on metoprolol XL, switched from 12.5 mg twice daily to 25 mg
daily. Patient was medically stable for discharge, however patient's spouse refused to take patient home due to concern for blood pressure drop with metoprolol. Hence patient's blood pressures were closely monitored for the next day. No
orthostatics was reported. On day 6 of admission, patient was complaining of productive cough, had crackles on exam. Chest x-ray suspicious for pneumonia in left middle lobe. Patient was started on Levaquin 500 mg daily x5 days for aspiration
versus community-acquired pneumonia. On speech therapy assessment 07/22/24, patient had no overt signs of aspiration and was recommended to continue regular solids and thin liquids. Patient's cough has improved today and he has no new complaints.
Today, he is medically stable for discharge home with home health. Patient to be discharged on Levaquin 500 mg daily for 3 additional days (stop date 08/01/24), midodrine twice daily, and metoprolol XL daily. Patient was advised to follow-up with
his examiner of currency for adjustment of blood pressure medications.
Important imaging findings :
Chest x-ray 07/28/24: There is a left midlung opacity suspicious for pneumonia.
Discharge Plan
-
Patient Disposition: Home with Home Care
Discharge Diagnosis/Procedures: Orthostatic hypotension, pneumonia, Childress-Dreifuss muscular dystrophy, Parkinson's disease, heart failure with reduced ejection fraction, coronary artery disease, persistent atrial fibrillation, hypertension,
hyperlipidemia, benign prostate hyperplasia, history of CVA
Condition: Fair
Diet: Regular
Activity: As tolerated
Driving Restrictions: As prior to admission
Other Services: PT, OT and ST
Referrals:
Doug Bond MD [Family Provider] -
Connor Alvarez MD [Active] - in less than 1 week
Additional Discharge Medication Instructions: You should follow-up with your examiner of currency or primary care physician in the next week to manage your blood pressure medications.
You will need to follow up with outpatient physical and occupational therapy.
You should follow-up with your primary care physician for your sleeping problem.
Do not take midodrine if your systolic blood pressure is greater than 180.
Do no take metoprolol if your systolic blood pressure is less than 90 or your heart rate is less than 60.
Prescriptions:
New
aspirin 81 mg Tablet,Delayed Release (Dr/Ec)
81 mg PO DAILY Qty: 30 0RF
levofloxacin 500 mg Tablet
500 mg PO DAILY Qty: 3 0RF
melatonin 5 mg Tablet
5 mg PO HS Qty: 14 0RF
midodrine 5 mg Tablet
5 mg PO BID AT 0800,1700 Qty: 60 0RF
metoprolol succinate 25 mg Tablet Extended Release 24 Hr
25 mg PO DAILY Qty: 30 0RF
Continued
atorvastatin [Lipitor] 80 mg Tablet
40 mg PO HS
tamsulosin [Flomax] 0.4 mg Capsule
0.4 mg PO HS
pantoprazole [Protonix] 40 mg Tablet,Delayed Release (Dr/Ec)
40 mg PO DAILY
nitroglycerin [Nitrostat] 0.4 mg Tablet, Sublingual
0.4 mg SUBLINGUAL [id number] PRN (Reason: CHEST PAINS)
carbidopa-levodopa 25-100 mg Tablet
1.5 tab PO DAILY@1400
carbidopa-levodopa 25-100 mg Tablet
2 tab PO DAILY
carbidopa-levodopa 25-100 mg Tablet
1.5 tab PO DAILY@1900
carbidopa-levodopa 25-100 mg Tablet
2 tab PO HS@2300
coQ10 (ubiquinol) 100 mg Capsule
300 mg PO HS
Eliquis 5 mg Tablet
5 mg PO BID
Held
isosorbide mononitrate 30 mg Tablet Extended Release 24 Hr
30 mg PO DAILY Qty: 30 0RF
Hold Instructions: Until seen by your examiner of currency.
lisinopril 10 mg Tablet
10 mg PO DAILY
Hold Instructions: Hold until seen by your examiner of currency or primary care physician
Discontinued
metoprolol succinate 25 mg tablet extended release 24 hr
12.5 mg PO BID
Discharge Orders:
Discharge Patient (As Directed); Ordered 07/29/24
Ordered By: Malena Walekr
Discharge Date and Time
Discharge Date/Time: 07/29/24 17:36
Print Language: FIJIAN

Documented by User: Phill Mendoza MD 07/29/24 23:02
Discharge Summary
Discharge Data
Date of Admission: 07/25/24
Date of Discharge: 07/29/24
Discharge Plan
-
Patient Disposition: Home with Home Care
Discharge Diagnosis/Procedures: Orthostatic hypotension, pneumonia, Childress-Dreifuss muscular dystrophy, Parkinson's disease, heart failure with reduced ejection fraction, coronary artery disease, persistent atrial fibrillation, hypertension,
hyperlipidemia, benign prostate hyperplasia, history of CVA
Condition: Fair
Diet: Regular
Activity: As tolerated
Driving Restrictions: As prior to admission
Other Services: PT, OT and ST
Referrals:
Doug Bond MD [Family Provider] -
Connor Alvarez MD [Active] - in less than 1 week
Additional Discharge Medication Instructions: You should follow-up with your examiner of currency or primary care physician in the next week to manage your blood pressure medications.
You will need to follow up with outpatient physical and occupational therapy.
You should follow-up with your primary care physician for your sleeping problem.
Do not take midodrine if your systolic blood pressure is greater than 180.
Do no take metoprolol if your systolic blood pressure is less than 90 or your heart rate is less than 60.
Prescriptions:
New
aspirin 81 mg Tablet,Delayed Release (Dr/Ec)
81 mg PO DAILY Qty: 30 0RF
levofloxacin 500 mg Tablet
500 mg PO DAILY Qty: 3 0RF
melatonin 5 mg Tablet
5 mg PO HS Qty: 14 0RF
midodrine 5 mg Tablet
5 mg PO BID AT 0800,1700 Qty: 60 0RF
metoprolol succinate 25 mg Tablet Extended Release 24 Hr
25 mg PO DAILY Qty: 30 0RF
Continued
atorvastatin [Lipitor] 80 mg Tablet
40 mg PO HS
tamsulosin [Flomax] 0.4 mg Capsule
0.4 mg PO HS
pantoprazole [Protonix] 40 mg Tablet,Delayed Release (Dr/Ec)
40 mg PO DAILY
nitroglycerin [Nitrostat] 0.4 mg Tablet, Sublingual
0.4 mg SUBLINGUAL [id number] PRN (Reason: CHEST PAINS)
carbidopa-levodopa 25-100 mg Tablet
1.5 tab PO DAILY@1400
carbidopa-levodopa 25-100 mg Tablet
2 tab PO DAILY
carbidopa-levodopa 25-100 mg Tablet
1.5 tab PO DAILY@1900
carbidopa-levodopa 25-100 mg Tablet
2 tab PO HS@2300
coQ10 (ubiquinol) 100 mg Capsule
300 mg PO HS
Eliquis 5 mg Tablet
5 mg PO BID
Held
isosorbide mononitrate 30 mg Tablet Extended Release 24 Hr
30 mg PO DAILY Qty: 30 0RF
Hold Instructions: Until seen by your examiner of currency.
lisinopril 10 mg Tablet
10 mg PO DAILY
Hold Instructions: Hold until seen by your examiner of currency or primary care physician
Discontinued
metoprolol succinate 25 mg tablet extended release 24 hr
12.5 mg PO BID
Discharge Orders:
Discharge Patient (As Directed); Ordered 07/29/24
Ordered By: Malena Walker
Discharge Date and Time
Discharge Date/Time: 07/29/24 17:36
Print Language: FIJIAN
== END 2024-07-29 17:36 | disposition home health service (06) | DRG 56 ==
LOC: 4 WEST ACU 11:03
PROVIDERS: Student in an Organized Health Care Education/Training Program; ADMITTING PHYSICIAN Hospitalist; ATTENDING PHYSICIAN Family Medicine; EMERGENCY PHYSICIAN Emergency Medicine; FAMILY PHYSICIAN Internal Medicine
DX: G90.3 Multi-system degeneration of the autonomic nervous system (principal); J18.9 Pneumonia, unspecified organism; I50.22 Chronic systolic (congestive) heart failure; I48.19 Other persistent atrial fibrillation; I11.0 Hypertensive heart disease with heart failure; G71.00 Muscular dystrophy, unspecified; G20.A1 Parkinson's disease without dyskinesia, without mention of fluctuations; E78.2 Mixed hyperlipidemia; N40.0 Benign prostatic hyperplasia without lower urinary tract symptoms; I25.10 Atherosclerotic heart disease of native coronary artery without angina pectoris; Z95.1 Presence of aortocoronary bypass graft; G90.9 Disorder of the autonomic nervous system, unspecified; F44.4 Conversion disorder with motor symptom or deficit; Z86.73 Personal history of transient ischemic attack (TIA), and cerebral infarction without residual deficits; I73.9 Peripheral vascular disease, unspecified; N20.0 Calculus of kidney; F32.A Depression, unspecified; G25.81 Restless legs syndrome; K21.9 Gastro-esophageal reflux disease without esophagitis; Z79.01 Long term (current) use of anticoagulants; Z79.899 Other long term (current) drug therapy
CPT/HCPCS: 71045; 71046; 80048; 81003; 81015; 82962; 84484; 85025; 85027; 93005; 94760; 96360; 96361; 97163; 97167; 97530; 97535; 99285

== ENCOUNTER 2025-01-02 11:54 | Inpatient (IN) | payer MEDICARE, OTHER, SELFPAY ==
[2024-12-30] VITALS (10 sets, daily range): BP systolic 91–165; BP diastolic 57–108; BMI 31.8; BMI 30.3
[2024-12-30 13:57] LABS: Hematocrit 44.1 % (39.0-52.0); Hemoglobin 13.9 g/dL (13.0-18.0); Mean Corp Hgb Conc. 31.5 g/dL (33.0-37.0); Mean Corpuscular Volume 81.5 fL (80.0-94.0); Nucleated Red Blood Cells % 0 % (-); Platelet Count 209 10^3/uL (130-400); Red Cell Dist. Width 15.1 % (11.5-14.5)
[2024-12-30 14:15] LABS: AST (SGOT) 20 U/L (17-59); Albumin 4.2 g/dl (3.5-5.0); Alkaline Phosphatase 94 U/L (38-126); Blood Urea Nitrogen 32 mg/dl (9-20); Calcium 9.1 mg/dl (8.4-10.2); Carbon Dioxide 25 mmol/L (22-30); Chloride 105 mmol/L (98-107); Glucose 132 mg/dl (70-99); Potassium 3.7 mmol/L (3.5-5.1); Sodium 139 mmol/L (135-145); Total Protein 6.6 g/dl (6.3-8.2); eGFR > 60.00
--- NOTE | 2024-12-30 15:28 | ED.GENMED ---
History of Present Illness
General
Chief Complaint: Male Genito-Urinary Symptoms
Time Seen by Provider: 12/30/24 15:03
History of Present Illness
History of Present Illness:
74-year-old male history of muscular dystrophy, Parkinson's, atrial fibrillation on Eliquis, hypertension, hyperlipidemia, constipation on Linzess presenting with abdominal pain started yesterday. Family at bedside states that patient has been
sleeping more and has not been eating for the past few days. Patient was seen at urgent care yesterday, had a UA that showed protein and blood in urine was not concerning for UTI. Family states that symptoms have been worsening prompt ED arrival.
Patient reports 1 episode of nausea, no vomiting. Patient states he has been constipated for the past 6 days but just had a bowel movement. No history of abdominal surgeries. Otherwise no fever or chills.
Past History
Past History
ED Past Medical History: Arrthythmia (AFib), CAD, Cancer (Prostate), GERD, HTN, Hypercholesterolemia, Psychiatric (Major depression) and Other (Harvel-Dreifuss Muscular Dystrophy, Parkinson disease, Restless Legs Syndrome)
ED Past Surgical History: Cardiac (CABG x3, stents)
Social History
Tobacco: Non-smoker
Alcohol: Occasional
Drug: None
Personal:
Living: with family
Employment: Not employed
Family History
Family History: Other (Reviewed and non-contributory)
Phy Exam
Physical Exam
Physical Exam:
General: Alert, no acute distress
Head: NCAT
Eyes: clear conjunctiva
Neck: supple
Cardiac: regular rate, irregular irregular rhythm
Lungs: clear to auscultation bilaterally. No wheezes, rales, or rhonchi. Speaking full unlabored sentences. No respiratory distress.
Abdomen: Distended, firm, right lower quadrant tenderness to palpation
MSK: no lower extremity edema bilaterally. No deformity
Skin: warm, dry
Course
Orders/Labs/Results
Orders:
Orders
12/30/24 13:43
Complete Blood Count/With Diff Urgent
Comprehensive Metabolic Panel Urgent
12/30/24 Dinner
NPO
Allow oral meds: No
Allow clear liquids: No
12/30/24 15:19
CT Abd/pel W Iv And Oral Contr Urgent
Comment:
Reason For Exam: rlq tenderness
Iohexol [Omnipaque] See Protocol PO NOW STA
12/30/24 15:40
Lipase Urgent
UA Reflex to Culture [Urinalysis Reflex To Culture] Urgent
Date Specimen was Collected: 12/30/24
Time Specimen was Collected: 15:21
Urine Microscopic Reflex Cult Urgent
Urine Culture Urgent
MARYAM Source: U
Specimen Description:
Date Specimen was Collected: 12/30/24
Time Specimen was Collected: 15:21
12/30/24 17:15
EKG [Electrocardiogram (*1)] Urgent
Reason for Study: Abnormal EKG
EKG- Treatment ONCE
12/30/24 19:18
Ondansetron Injectable [Zofran] 4 mg IV NOW STA
12/30/24 19:19
Metoclopramide [Reglan] 10 mg IV NOW STA
12/30/24 19:36
CefTRIAXone [Rocephin] 1,000 mg IV NOW STA
12/30/24 19:51
Sterile Water [Sterile Water For Injection] 10 ml .ROUTE .STK-MED ONE
12/30/24 20:25
Ondansetron Injectable [Zofran] 4 mg IV NOW STA
12/30/24 21:15
Admit/Transfer Patient As Directed
Co-Sign Provider:
Level of Care: Observation services
Assign to:: Telemetry
Physician / Group: shaneka Powell
Diagnosis: UTI, intractable nausea and vomting, constipation
Reason for Telemetry: Arrhythmia
Date to Stop Telemetry: 01/02/25
Time to Stop Telemetry: 11:00
12/30/24 21:16
PRN Pain Medication Management As Directed
May give lesser potent ordered pain med per pt: Yes
preference::
Protocol:: Medication orders for pain may be administered in a
manner that supports deferring to patient preference
when the pt is:
- Requesting an ordered lesser potent pain medication.
Least to most potent pain medications are defined
as: acetaminophen < NSAID < tramadol < opioids
(morphine, oxycodone, hydromorphone).
- Requesting a lesser dose of the same medication IF
ORDERED.
- Requesting a less intrusive route of administration
if both routes are prescribed by the provider (PO <
IV).
12/30/24 21:18
Code Status As Directed
Resuscitation Status: Full Code
12/30/24 21:35
Ipratropium/Albuterol Sulfate [Duoneb] 3 ml INH R NOW ONE
Ipratropium/Albuterol Sulfate [Duoneb] 3 ml INH R Q4HPRN PRN
12/30/24 21:38
Heparin Protocol- PTT Orders As Directed
PTT per Heparin protocol: -Obtain CBC and baseline PTT - if not already collected.
-Obtain PTT 6 hours from start of infusion. Then, every 6 hours until 2 consecutive
PTT's are therapeutic. Then, PTT Daily.
-With each rate change, obtain PTT every 6 hours until 2 consecutive PTT's are
therapeutic. Then, PTT Daily.
Notify MD As Directed
Notify physician if: PTT is greater than or equal to 200.
12/30/24 21:45
Heparin 98575 Units/250 ml 25,000 units in 250 ml IV PER PROTOCOL
Weight to be used for heparin protocol in kilograms (kg):: 100.4
Protocol:: Cardiac Tx/Acute Coronary
PTT Goal Range to be used:: PTT 73 to 111 seconds
Order type:: Initial
INITIAL Infusion Dose (UNITS/KG/hr) & then follow protocol:: 12 units/kg/hr
Infusion Dose in UNITS/hr & then follow protocol (UNITS/hr):: 1,000
INFUSION RATE in mL/hr & then follow protocol (mL/hr):: 10
PTT less than or equal to 64 seconds:: Increase rate by 200 units/hr (+ 2 mL/hr)
PTT 64.1 to 72.9 seconds:: Increase rate by 100 units/hr (+ 1 mL/hr)
PTT 73 to 111 seconds:: Target Range. No change in rate.
PTT 111.1 to 130.9 seconds:: Decrease rate by 100 units/hr (- 1 mL/hr)
PTT 131 to 199.9 seconds:: HOLD for 1 hr. Then decrease rate by 200 units/hr (- 2 mL/hr)
PTT greater than or equal to 200 seconds:: HOLD for 2 hrs & Notify Provider. Then decrease by 200 units/hr (-
2 mL/hr)
Lab follow-up:: Each change, PTT q6h until 2 consecutive are therapeutic. Then PTT
daily.
12/30/24 21:51
Complete Blood Count/No Diff Urgent
Comment: Obtain baseline before beginning heparin infusion if not already collected
PTT Urgent
Comment: Obtain baseline before beginning heparin infusion if not already collected
12/30/24 22:00
Flush (0.9% Sodium Chloride) [Flush (Nss)] See Dose Instructions IV PER PROTOCOL
12/30/24 22:40
0.9% Sodium Chloride 1000 ml [Nss] 1,000 ml IV 50 mls/hr
Trimethobenzamide [Tigan] 200 mg IM Q6HPRN PRN
12/30/24 22:40
Activity As Directed
Activity Level: As Tolerated
Enema As Directed
Type: Milk and molasses
Amount: 1
Intake/ Output As Directed
Frequency: Per unit guidelines
Sequential Compression Device [Pneumatic Compression Sleeves] As Directed
Type: Knee high
Vital Signs As Directed
Frequency: Per unit guidelines
Weight As Directed
Frequency: Once
Comment: on admission
DX Deep Vein Thrombosis Video Routine
12/31/24 00:00
Metoprolol [Lopressor] 2.5 mg IV Q8
12/31/24 06:00
Basic Metabolic Panel IN AM
Complete Blood Count/No Diff IN AM
CR Chest Portable - 1 View Routine
Comment:
Reason For Exam: cough
Reason Study Needs to be Portable: Unable to Transport
12/31/24 20:00
CefTRIAXone [Rocephin] 1,000 mg IV Q24H
01/01/25 06:00
Complete Blood Count/No Diff Q2D
Comment: Notify MD if platelet count is <130,000 or decreases by 50% from baseline
01/02/25 11:00
DC Protocol for Telemetry ONCE
01/03/25 06:00
Complete Blood Count/No Diff Q2D
Comment: Notify MD if platelet count is <130,000 or decreases by 50% from baseline
01/05/25 06:00
Complete Blood Count/No Diff Q2D
Comment: Notify MD if platelet count is <130,000 or decreases by 50% from baseline
01/07/25 06:00
Complete Blood Count/No Diff Q2D
Comment: Notify MD if platelet count is <130,000 or decreases by 50% from baseline
01/09/25 06:00
Complete Blood Count/No Diff Q2D
Comment: Notify MD if platelet count is <130,000 or decreases by 50% from baseline
01/11/25 06:00
Complete Blood Count/No Diff Q2D
Comment: Notify MD if platelet count is <130,000 or decreases by 50% from baseline
01/13/25 06:00
Complete Blood Count/No Diff Q2D
Comment: Notify if platelet count is <130,000 or decreases by 50% from baseline
01/15/25 06:00
Complete Blood Count/No Diff Q2D
Comment: Notify MD if platelet count is <130,000 or decreases by 50% from baseline
Abnormal Lab Results
12/30/24 12/30/24
13:43 15:40
MCH 25.7 L pg
(27.0-31.0)
MCHC 31.5 L g/dL
(33.0-37.0)
RDW 15.1 H %
(11.5-14.5)
MPV 11.2 H fL
(7.4-10.4)
Absolute Monos (auto) 1.0 H 10^3/uL
(0.1-0.6)
Lymphocytes % 15.3 L %
(20.5-51.1)
Monocytes % 11.5 H %
(1.7-9.3)
BUN 32 H mg/dl
(9-20)
Creatinine 0.5 L mg/dL
(0.7-1.3)
Glucose 132 H mg/dl
(70-99)
Urine Ketones 2+ A
(Negative)
Ur Occult Blood Reflex 4+ A
(Negative)
Urine Bilirubin 2+ A
(Negative)
Urine Urobilinogen 2+ A
(Neg - 1+)
Leukocyte Esterase Rfl 3+ A
(Negative)
Urine RBC 11-15 A /HPF
(0-2)
Urine WBC (Reflex) 11-15 A /HPF
(0-5)
Urine Bacteria (Reflex) Few A
(Negative)
Urine Albumin (Reflex) 2+ A
(Neg - Trace)
12/30/24 13:43
12/30/24 13:43
Vital Signs
Initial and Last Documented VS:
Initial Vital Signs
Temp Pulse Resp BP Pulse Ox
97.6 F 78 16 91/57 100
12/30/24 13:32 12/30/24 13:32 12/30/24 13:32 12/30/24 13:32 12/30/24 13:32
Last Documented Vital Signs
Temp Pulse Resp BP Pulse Ox
99.2 F 95 18 165/97 95
12/30/24 22:49 12/30/24 22:49 12/30/24 22:49 12/30/24 22:49 12/30/24 22:49
MDM/Problems Addressed
Differential Diagnosis Includes:
Appendicitis, bowel obstruction, UTI, kidney stone, diverticulitis
MDM/Problems Addressed:
Results reviewed. WBC 9.9. Electrolytes, creatinine within normal limits. UA consistent with UTI. Ordered ceftriaxone.
CT abdomen pelvis shows unremarkable appendix, majority of oral contrast seen in stomach/nondilated proximal small bowel that could represent some gastroparesis. Gaseous distention of large bowel with large volume stool seen in the distal sigmoid
colon and rectum, consider constipation/impaction. Stercoral colitis cannot be excluded. No free air.
On reevaluation, patient reports worsening nausea and abdominal pain. Ordered Reglan. Patient had multiple episodes of vomiting. Recommend admission for IV antibiotics, inability tolerate p.o. Patient and agreeable at bedside. Discussed
with hospitalist. Disimpacted patient, moderate amount of hard stool removed, passing flatus. Patient reports improvement in pain
*Pulse Oximetry
SaO2: 97
Oxygen Mode of Delivery: Room air
Patient hypoxic: no
*EKG
Interpreted by ED Provider?: Yes (EKG shows atrial fibrillation at 81 bpm with QRS 92 QTc 501 no STEMI)
*Critical Care Note
Total Time (30-74mins, 75-104mins- exclusive of procedures): Not Applicable
ED Attending Note
-
Portions of this chart may have been created with voice recognition software.� Occasional wrong word or��sound alike� substitutions may have occurred due to the inherent limitations of voice recognition software.
Discharge Plan
Departure
Patient Disposition: Admit
Date of Disposition: 12/30/24
Time of Disposition: 20:28
Presentation/result/management discussed w/ accepting MD/DO: Hospitalist
Discharge Problem:
Acute UTI, Intractable nausea and vomiting
Interventions
Interventions:
*Risk Screen - Suicide Last Done: 12/30/24 13:38
*General Assessment Last Done: 12/30/24 14:55
*Neglect/Abuse Screening Last Done: 12/30/24 13:38
*ED- Fall Risk Assessment Last Done: 12/30/24 14:55
*ED COVID-19 Vaccine History Last Done: 12/30/24 14:55
*Nursing Disposition Last Done: 12/30/24 22:35
ED-Male Genitourinary Assessment Last Done: 12/30/24 14:50
Discharge Date and Time
Discharge Date/Time: 12/30/24 22:36
[2024-12-30 15:31] LABS: ALT (SGPT) < 10 U/L (0-50)
[2024-12-30] MEDS: OMNIPAQUE 50 ML PO (15:44)
[2024-12-30 16:05] LABS: Lipase 36 U/L (23-300)
[2024-12-30 19:03] LABS: Urine Character Slightly Cloudy (Clear)
[2024-12-30 19:18] LABS: Urine Squamous Cell 0-2 /LPF (Few)
[2024-12-30] MEDS: REGLAN 10 MG IV (19:29)
[2024-12-30] MEDS: ROCEPHIN 1000 MG IV (19:51)
[2024-12-30] MEDS: ZOFRAN 4 MG IV (20:28)
--- NOTE | 2024-12-30 20:38 | HPS.HSE ---
Family Physician
-
Family Physician: Doug Bond
Chief Complaint
-
Nausea and vomiting and constant
History of Present Illness
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
recurrent episodes of the nausea, vomiting and constipation and not moving her bowels for the last 5 days and started on Linzess from Friday. Also no evidence last couple days been weak, lethargic and she thought she may have a UTI, she took
initially to urgent care. You but they were not sure if there is UTI or not.
Therefore brought him to the hospital and the CT abdominal pelvis showed large stool impaction while contrast still in the stomach and there was a concern for gastroparesis.
Patient been throwing up on and off and looks like he is throwing up the contrast.
Denies chest pain or shortness of breath or fever or chills patient is bedbound and functional quadriplegia.
Also workup currently concerning for UTI.
Medical History
Past Medical History
Past Medical History: Reports Other
Additional Past Medical History:
Past medical history:
Toole-Dreifuss muscular dystrophy
Chronic systolic congestive heart failure with EF around 40%
Coronary artery disease status post CABG
Hypertension
Parkinson disease
Functional quadriplegia
Bladder cancer
Recurrent UTI
Left ankle wound laterally, present on admission
A-fib
Social history: No smoking no alcohol use lives at home and ambulatory but never electrical chair is very full in the chair every day.
Family history: Reviewed and noncontributory
Past Surgical History: Reports Other
Social History
Unable to obtain full social history at this time due to: Other
Family History
Family History: Other
Allergies / Home Medications
Allergies reflects when Allergies were last updated in [email or web address].
Home Medications with original date entered in [email or web address]
Allergy/Medication List:
Allergies
Allergy/AdvReac Type Severity Reaction Status Date / Time
No Known Allergies Allergy Verified 07/17/24 14:18
Home Medications
apixaban 5 mg tablet (Eliquis) 5 mg PO BID Blood Clot Prevention/Tx 02/15/23
atorvastatin 80 mg tablet (Lipitor) 40 mg PO HS High Cholesterol 02/15/23
carbidopa 25 mg-levodopa 100 mg tablet 1.5 tab PO DAILY@1400 Parkinsons disease 02/15/23
carbidopa 25 mg-levodopa 100 mg tablet 1.5 tab PO DAILY@1900 Parkinsons Disease 02/15/23
carbidopa 25 mg-levodopa 100 mg tablet 2 tab PO DAILY Parkinsons Disease 02/15/23
carbidopa 25 mg-levodopa 100 mg tablet 2 tab PO HS@2300 Parkinsons Disease 02/15/23
coQ10 (ubiquinol) 100 mg capsule 300 mg PO HS Supplement 02/15/23
nitroglycerin 0.4 mg sublingual tablet (Nitrostat) 0.4 mg sublingual [id number] PRN CHEST PAINS 02/15/23
pantoprazole 40 mg tablet,delayed release (Protonix) 40 mg PO DAILY Gastrointestinal Issue 02/15/23
tamsulosin 0.4 mg capsule (Flomax) 0.4 mg PO HS Urinary Issue 02/15/23
isosorbide mononitrate 30 mg tablet,extended release 24 hr 30 mg PO DAILY Chest pain #30 tabs 02/19/23
Held on 07/29/24. Instructions: Until seen by your proposal rep.
lisinopril 10 mg tablet 10 mg PO DAILY Blood Pressure 07/21/24
Held on 07/26/24. Instructions: Hold until seen by your proposal rep or primary care physician
aspirin 81 mg tablet,delayed release 81 mg PO DAILY #30 tabs 07/27/24
levofloxacin 500 mg tablet 500 mg PO DAILY #3 tabs 07/29/24
melatonin 5 mg tablet 5 mg PO HS Sleep #14 tabs 07/29/24
metoprolol succinate 25 mg tablet,extended release 24 hr 25 mg PO DAILY #30 tabs 07/29/24
midodrine 5 mg tablet 5 mg PO BID AT 0800,1700 #60 tabs 07/29/24
Review of Systems
-
A 12 point ROS was completed and negative except as noted: Yes
Physical Exam
Vital Signs
Vital Signs
Temp Pulse Resp BP Pulse Ox
97.6 F 89 22 146/82 92
12/30/24 18:37 12/30/24 20:15 12/30/24 20:15 12/30/24 19:00 12/30/24 19:45
Physical exam:
General: Awake, alert and oriented x3, not in distress and holds appropriate conversation. Overweight, has been nauseating and vomiting clear liquid
HEENT: No active discharge, ecchymosis or bruising, moist lips, tongue and mucous membrane.
Eyes: No discharge or red conjunctiva, no nystagmus, pupils are reactive and equal
Neck:Supple, no JVD no bruit no goiter.
Respiratory: Normal AP contour and diameter, normal chest wall movement, normal respiratory effort, no respiratory distress,
Lungs: Good air entry bilaterally, no wheezing or rhonchi, no rales or crackles
Heart: S1, S2 regular, normal rate, no added sound.
Gastrointestinal: Slight bowel sounds, soft, distended and tense, mild generalized tenderness, no guarding or rigidity or organomegaly
Musculoskeletal: Open wound on the left ankle laterally around the malleoli with no evidence of infection of the dressing on, no chest wall abnormality or tenderness. no muscle tenderness or any joint swelling or tenderness.
Extremities: No pitting edema, good peripheral pulses, good range of motion
Skin: Warm and dry, left ankle wound, normal color.
Neurological: Awake, alert and oriented x3, answer question properly, not much movement in the lower extremities,, speech clear and comprehensive,
Psychiatric: Normal mood, normal thought and judgment, normal affect,
Physical Exam
General: Other
Laboratory Results
-
12/30/24 13:43
12/30/24 13:43
Laboratory Results
Total Bilirubin 1.3 mg/dl (0.2-1.3) 12/30/24 13:43
AST 20 U/L (17-59) 12/30/24 13:43
ALT < 10 U/L (0-50) 12/30/24 13:43
Alkaline Phosphatase 94 U/L (38-126) 12/30/24 13:43
Lipase 36 U/L (23-300) 12/30/24 15:40
CT abdomen and pelvis:
Evaluation overall limited as a result of several factors including beam hardening artifact from the patient's bilateral upper extremities and respiration/motion artifact.
Unremarkable appendix.
Majority of oral contrast seen in the stomach and nondilated proximal small bowel. If oral contrast was initially administered greater than 2 hours ago, findings could represent some gastroparesis.
Gaseous distention of large bowel with large volume stool seen in the distal sigmoid colon and rectum, consider constipation/impaction. Stercoral colitis cannot be excluded..
No free air.
EKG showed A-fib with rate controlled around 81, QTc 541, with left ventricular hypertrophy and nonspecific ST-T wave abnormalities.
Data Reviewed
-
Diagnostic Radiology: Image Personally Visualized and interpreted, Discussed with Patient and Discussed with Family
CT Scan: Image Personally Visualized and interpreted, Discussed with Patient and Discussed with Family
Lab Data: Labs Reviewed by me, Discussed with Patient and Discussed with Family
Old Records: Reviewed
Impression/Plan
-
IMPRESSION:
74-year-old male with multiple comorbidities including Parkinson disease, muscular dystrophy, functional quadriplegia presented to the hospital for generalized weakness and nausea and vomiting workup currently concerning for UTI and fecal impaction,
no evidence of bowel obstruction on the CAT scan.
Recurrent nausea and vomiting:
- Likely combination of fecal impaction and gastroparesis. No evidence of small bowel obstruction
- Offered NG tube but he declined
- Nausea medication was Tigan as he has a QT prolongation while received Reglan and Zofran in the ER
- IV fluid cautiously and monitor for fluid overload
-N.p.o. for now including medication
Fecal impaction:
- According to the patient moves his bowels once every 5-day and started on Linzess from last Friday
- For now we will keep him strict n.p.o.
- ER were planning digital fecal disimpaction and will give him a enema
- Once he moved his bowels and doing better then we can start feeding him
-If not improving consider GI consult
- I can add the Reglan because of prolongation of QT
-Advise about making sure he moves his bowels regularly.
QT prolongation:
- QTc around 500 and been elevated in the past
- Avoid QT prolongation medication
- Repeat EKG in the morning
Urinary tract infection:
- Likely secondary to chronic immobility and Parkinson disease
- IV Rocephin can be discontinued pending culture and sensitivity
Parkinson disease:
- Will hold all p.o. medication for now discussed with the patient and the once nausea vomiting statin can be restarted.
Chronic systolic congestive heart failure EF around 40%
- Monitor fluid status
- Because of the recurrent nausea and vomiting and poor oral intake we will start low-dose of IV fluid normal saline 50 mL/h with close monitoring of the fluid status
- Once able to take medicine orally he can be restarted on his medication.
Labile hypertension:
- According to the he having labile hypertension.
-Hold all p.o. medication will put him on a 2.5 mg Lopressor every 8 hour with close monitoring of the vital sign and to avoid rebound tachycardia.
Coronary artery disease status post CABG:
-Known history
- Hold all p.o. medication
- Lopressor IV as above,
A-fib:
- Hold all p.o. medication
- IV Lopressor
- Start heparin drip with no initial bolus and try to avoid Lovenox to try to avoid abdominal wall injection as he is distended and in discomfort.
- Risks of bleeding explained to the patient and .
All discussed with the patient and the in detail and expressed understanding
Discussed with the ER staff
CODE STATUS full code
DVT prophylaxis heparin drip
[2024-12-30 22:02] LABS: Hematocrit 44.9 % (39.0-52.0); Hemoglobin 14.7 g/dL (13.0-18.0); Mean Corp Hgb Conc. 32.7 g/dL (33.0-37.0); Mean Corpuscular Volume 80.5 fL (80.0-94.0); Platelet Count 213 10^3/uL (130-400); Red Cell Dist. Width 15.0 % (11.5-14.5)
[2024-12-30] MEDS: DUONEB 3 ML INH (22:05)
[2024-12-30 22:11] LABS: APTT 32.8 Sec (23.4-35.0)
[2024-12-30] MEDS: LOPRESSOR 2.5 MG IV (23:45)
[2024-12-30] MEDS: NSS 1000 IV (23:46)
[2024-12-30] MEDS: HEPARIN 25000 UNITS/250 ML IV (23:46)
[2024-12-31 02:58] VITALS: BP 166/77
[2024-12-31 07:00] VITALS: BP 142/73
[2024-12-31 07:39] LABS: Blood Urea Nitrogen 30 mg/dl (9-20); Calcium 8.7 mg/dl (8.4-10.2); Carbon Dioxide 24 mmol/L (22-30); Chloride 106 mmol/L (98-107); Estimated Creatinine Clearance > 125 ml/min; Glucose 79 mg/dl (70-99); Potassium 3.5 mmol/L (3.5-5.1); Sodium 139 mmol/L (135-145); eGFR > 60.00
[2024-12-31 07:41] LABS: Hematocrit 40.6 % (39.0-52.0); Hemoglobin 13.5 g/dL (13.0-18.0); Mean Corp Hgb Conc. 33.3 g/dL (33.0-37.0); Mean Corpuscular Volume 79.9 fL (80.0-94.0); Platelet Count 175 10^3/uL (130-400); Red Cell Dist. Width 15.0 % (11.5-14.5)
[2024-12-31 09:17] LABS: APTT 81.6 Sec (23.4-35.0)
[2024-12-31] MEDS: LOPRESSOR 2.5 MG IV (09:33)
[2024-12-31 11:00] VITALS: BP 124/83
[2024-12-31 11:11] VITALS: BMI 31.9
--- NOTE | 2024-12-31 13:47 | WOUNDNOTE ---
[facility] RN note: Patient admitted with n/v
See H&P for complete history
PMH: Parkinson disease, muscular dystrophy, functional quadriplegia presented to the hospital for generalized weakness and nausea and vomiting workup currently concerning for UTI and fecal impaction, no evidence of bowel obstruction on the CAT
scan. Patient lives with and is care for by his , who is at the bedside.
Wound Location and type/assessment: Patient admitted with stage 2 PI to left lateral malleolus. states patient has had wound for several months and it recently healed, but then reopened. The wound is shallow and has a pink wound bed with a
small amount of drainage. Spoke to CHRISTINA Reyes and patient was admitted with stage 1 PI to sacrum.
Appetite: Patient reports fair, per plan is for speech eval to eval for swallowing.
Pressure redistribution devices in place: Patient on a Versa Care Accumax with fiber filled boots. Plan is for patient to be moved to air mattress which are located on unit. CHRISTINA Reyes aware. Patient also on turning schedule. Spoke to and
suggested she ask for air mattress for patient at every admission.
Plan: Local wound care provided to left heel. Patient will be moved to air mattress. CHRISTINA Reyes updated. Care plan and discharge instructions updated.
Note to case management of equipment requested for discharge:
Recommend follow up at wound care center upon discharge.
[2024-12-31] MEDS: SINEMET 25-100 1.5 TABLET PO ×2 (13:54→18:04)
[2024-12-31] MEDS: PROTONIX 40 MG PO (13:55)
--- NOTE | 2024-12-31 14:17 | CM ---
Patient seen bedside w/ spouse, initial assessment completed. Patient is a 74-year-old male with multiple comorbidities including Parkinson disease, muscular dystrophy, functional quadriplegia presented to the hospital for generalized weakness and
nausea and vomiting.
Patient resides w/ spouse in a 2STH, no steps to enter. Patient resides on first floor. Patient is assisted w/ ADLs. Patient has RW, stair glide, power chair, w/c, sit to stand lift. Patient has rehab hx at [facility] and [facility]. Patient is current
w/ [facility] for PT.
Address, point of contact and insurance verified
PCP: Doug Bond
Pharmacy: [facility]
Patient is currently admitted obsRosas GONZALEZ verbally reviewed, copy provided, copy on chart
Plan: Home, DEEPTHI w/ [facility]
--- NOTE | 2024-12-31 14:19 | WOUNDNOTE ---
LEFT LATERAL ANKLE WOUND 1950, [id number]
[2024-12-31 15:00] VITALS: BP 130/60
--- NOTE | 2024-12-31 15:37 | W.PN.HOSP.TC ---
Today's Communication/Plan
-
See plan
Assessment / Plan
Assessment / Plan
Impression
Severe constipation. Presents with persistent nausea and vomiting.
Stercoral colitis by CT scan
Concern for left lower lobe pneumonia secondary to aspiration with emesis
Concern for UTI
QT prolongation
Conditions prior to admission:
Muscular dystrophy with functional quadriplegia.
Parkinson's disease.
Chronic CHF mildly reduced EF.
Hypertension.
Coronary artery disease status post CABG.
Persistent atrial fibrillation.
Anticoagulation with Eliquis.
Left foot pressure wound present on admission
Plan
Severe constipation
Presents with abdominal distention, discomfort, recurrent emesis.
Recently initiated on Linzess with no significant improvement.
CT scan on admission with large stool burden and possible stercoral colitis.
Status post disimpaction in ED open
Improved with no recurrent emesis since admission. Reports improved abdominal pain and no liquid stools.
Hold Linzess.
Reintroduced to MiraLAX and Colace.
Advance diet to regular.
Concern for left lower lobe pneumonia.
Afebrile
Normal WBC.
Stable respiratory status.
High risk for aspiration given recurrent emesis as well as Parkinson and muscular dystrophy.
Speech and swallow evaluation without overt aspiration
Advance diet to regular with thin liquids.
Consider VSE if stays through the weekend to rule out silent aspiration.
Initiated with antibiotics targeting UTI.
UTI.
Incontinent
Has abnormal UA
Pending urine cultures
Bladder scan for retention
Empiric antibiotics: Ceftriaxone
Continue Flomax
Cardiovascular: CAD with prior CABG
CHF with mildly reduced EF at 40%
Persistent atrial fibrillation baseline resume preadmission regimen including metoprolol XL, lisinopril, Imdur, statin
Transition off IV heparin to Eliquis
Continue aspirin
Prolonged QTc per
Continue monitoring including telemetry. Currently off Zofran and Reglan given on admission
Parkinson's disease
Continue carbidopa levodopa
Continue Restoril
Muscular dystrophy.
Functional quadriplegia
Bedbound, wheelchair-bound at home.
Continue supportive care
Left foot pressure ulcer. Wound care daily.
Full code
DVT prophylaxis Eliquis
Discussed with patient's at the bedside
Anticipated Discharge: 24 - 48 hours
Subjective/Interval History
-
Date of Service: December 31, 2024
Objective Data
-
Labs:
Laboratory Results
12/31/24 12/31/24 12/31/24
05:55 08:52 16:00
WBC 7.2
Hgb 13.5
Hct 40.6
Plt Count 175
APTT 81.6 H Pending
Sodium 139
Potassium 3.5
Chloride 106
Carbon Dioxide 24
BUN 30 H
Creatinine 0.5 L
Glucose 79
Calcium 8.7
Vital Signs:
Vital Signs
Temp Pulse Resp BP Pulse Ox
99 F 76 16 124/83 93
12/31/24 11:00 12/31/24 11:00 12/31/24 11:00 12/31/24 11:00 12/31/24 11:00
Physical Exam
-
General: Well Developed and No Apparent Distress
HEENT: Normocephalic, Atraumatic and Moist Mucous Membranes
Respiratory: Clear to Auscultation
Cardiac: Regular Rhythm and S1/S2; Negative Murmur, Rub or Gallop
GI: Soft, Nontender, Nondistended and Normal Bowel Sounds; Negative Organomegaly
Rectal: Deferred by Provider
Musculoskeletal: No Clubbing, No Cyanosis and No Edema
Skin: Negative Rash
Neuro: Other (Quadriplegic with upper and lower extremity contractions and muscle atrophy)
--- NOTE | 2024-12-31 16:32 | PTOTSP ---
Dysphagia Eval
Pt presents with no overt s/s of aspiration. Papo-pharyngeal dysphagia cannot be ruled out given pt PMH (e.g. , Parkinson's).
Recommendations:
1. Regular, Thins.
2. Medications as best tolerated.
3. Strategies: Small sips/bites, slowed rate of eating, pick soft foods from menu given missing dentition/dental pain
4. Instrumental swallow study to rule out silent aspiration provided PMH (e.g. , Parkinson's, PNA, chronic cough)
5. F/U w/ ST to monitor diet tolerance.
[2024-12-31 19:36] VITALS: BP 130/69
[2024-12-31] MEDS: STERILE WATER FOR INJECTION 10 ML IV (20:04)
[2024-12-31] MEDS: TOPROL XL 25 MG PO (20:05)
[2024-12-31] MEDS: ROCEPHIN 1000 MG IV (20:05)
[2024-12-31] MEDS: ELIQUIS 5 MG PO (20:05)
[2024-12-31] MEDS: FLOMAX 0.4 MG PO (22:21)
[2024-12-31] MEDS: KLONOPIN 0.5 MG PO (22:21)
[2024-12-31] MEDS: LIPITOR 40 MG PO (22:21)
[2024-12-31] MEDS: PEPCID 40 MG PO (22:21)
[2024-12-31] MEDS: IMDUR (EXTENDED RELEASE) 30 MG PO (22:21)
[2024-12-31] MEDS: FLEXERIL 10 MG PO (22:21)
[2024-12-31] MEDS: RESTORIL 15 MG PO (22:21)
[2024-12-31] MEDS: SINEMET 25-100 2 TABLET PO (22:23)
[2024-12-31 23:28] VITALS: BP 114/67
[2025-01-01] VITALS (7 sets, daily range): BP systolic 80–128; BP diastolic 48–75
[2025-01-01] MEDS: ASPIR LOW (ENTERIC COATED) 81 MG PO (07:47)
[2025-01-01] MEDS: ELIQUIS 5 MG PO ×2 (07:47→20:25)
[2025-01-01] MEDS: SINEMET 25-100 2 TABLET PO ×2 (07:47→23:40)
[2025-01-01] MEDS: ZESTRIL 10 MG PO (07:47)
[2025-01-01] MEDS: TOPROL XL 25 MG PO ×2 (07:48→20:12)
[2025-01-01] MEDS: PROTONIX 40 MG PO (07:48)
[2025-01-01 08:23] LABS: Hematocrit 36.3 % (39.0-52.0); Hemoglobin 11.7 g/dL (13.0-18.0); Mean Corp Hgb Conc. 32.2 g/dL (33.0-37.0); Mean Corpuscular Volume 79.8 fL (80.0-94.0); Nucleated Red Blood Cells % 0 % (-); Platelet Count 174 10^3/uL (130-400); Red Cell Dist. Width 15.1 % (11.5-14.5)
[2025-01-01 08:52] LABS: ALT (SGPT) < 10 U/L (0-50); AST (SGOT) 23 U/L (17-59); Albumin 3.1 g/dl (3.5-5.0); Alkaline Phosphatase 70 U/L (38-126); Blood Urea Nitrogen 21 mg/dl (9-20); Calcium 8.4 mg/dl (8.4-10.2); Carbon Dioxide 28 mmol/L (22-30); Chloride 107 mmol/L (98-107); Estimated Creatinine Clearance > 125 ml/min; Glucose 97 mg/dl (70-99); Potassium 3.2 mmol/L (3.5-5.1); Sodium 140 mmol/L (135-145); Total Protein 5.3 g/dl (6.3-8.2); eGFR > 60.00
--- NOTE | 2025-01-01 11:34 | PTCARENOTE ---
Patient's automatic BP taken by tech reading 70s-80s systolic, manual BP taken by this RN 80/48 RUE, HR 70s-80s afib on monitor. Patient states no complaints at this time, states his blood pressure can occasionally run low at home and he does take
midodrine PRN at baseline. Home BP regimen restarted yesterday per MD charting. This RN communicated with MD, PRN 5 mg PO midodrine administered by this RN - see JUN.
--- NOTE | 2025-01-01 13:02 | W.PN.HOSP.TC ---
Today's Communication/Plan
-
stop BALA; prn midodrine
continue IV abx
CT chest
VSE
Assessment / Plan
Assessment / Plan
Impression
Severe constipation. Presents with persistent nausea and vomiting.
Stercoral colitis by CT scan
Concern for left lower lobe pneumonia secondary to aspiration with emesis
Concern for UTI
QT prolongation
Conditions prior to admission:
Muscular dystrophy with functional quadriplegia.
Parkinson's disease.
Chronic CHF mildly reduced EF.
Hypertension.
Coronary artery disease status post CABG.
Persistent atrial fibrillation.
Anticoagulation with Eliquis.
Left foot pressure wound present on admission
Plan
Severe constipation
Presents with abdominal distention, discomfort, recurrent emesis.
Recently initiated on Linzess with no significant improvement.
CT scan on admission with large stool burden and possible stercoral colitis.
Status post disimpaction in ED open
Improved with no recurrent emesis since admission. Reports improved abdominal pain
residual liquid stools probably related to oral contrast
Hold Linzess and bowel regimen for now
Advance diet to regular.
Concern for left lower lobe pneumonia.
Afebrile
Normal WBC.
Stable respiratory status.
High risk for aspiration given recurrent emesis as well as Parkinson and muscular dystrophy.
Speech and swallow evaluation without overt aspiration
Advance diet to regular with thin liquids.
VSE Friday
continue Rocephin
CT chest
UTI.
Incontinent
Has abnormal UA but culture negative
Bladder scan for retention
Continue Flomax
Cardiovascular: CAD with prior CABG
CHF with mildly reduced EF at 40%
Persistent atrial fibrillation baseline resume preadmission regimen including metoprolol XL, lisinopril, Imdur, statin
continue Eliquis
Continue aspirin
Prolonged QTc per
Continue monitoring including telemetry. Currently off Zofran and Reglan given on admission
Parkinson's disease
Continue carbidopa levodopa
Continue Restoril
Muscular dystrophy.
Functional quadriplegia
Bedbound, wheelchair-bound at home.
Continue supportive care
Left foot pressure ulcer. Wound care daily.
HTN
- hold Lisinopril - was stopped at outpatient Cards office but patient was taking
Full code
DVT prophylaxis: Eliquis
Discussed with patient's at the bedside
Anticipated Discharge: > 48 hours
Subjective/Interval History
-
Date of Service: January 01, 2025
resting comfortably
no complaints
afternoon hypotension, asymptomatic
Objective Data
-
Labs:
Laboratory Results
01/01/25
08:05
WBC 5.7
Hgb 11.7 L
Hct 36.3 L
Plt Count 174
Sodium 140
Potassium 3.2 L
Chloride 107
Carbon Dioxide 28
BUN 21 H
Creatinine 0.5 L
Glucose 97
Calcium 8.4
Total Bilirubin 0.9
AST 23
ALT < 10
Alkaline Phosphatase 70
Vital Signs:
Vital Signs
Temp Pulse Resp BP Pulse Ox
98.8 F 82 17 80/48 92
01/01/25 11:19 01/01/25 11:19 01/01/25 11:19 01/01/25 11:31 01/01/25 11:19
I&O
12/31/24 01/01/25 01/02/25
06:59 06:59 06:59
Intake Total 990 / 990
Output Total 400 / 400
Balance 590 / 590
Physical Exam
-
General: No Apparent Distress
HEENT: Normocephalic and Atraumatic
Respiratory: Negative Wheezes
Cardiac: Regular Rhythm and S1/S2
GI: Soft
Neuro: AO x 3
Psych: Calm
Data Reviewed
-
Total Time Spent with Patient (in minutes): 42
Labs: Labs Reviewed by me
[2025-01-01] MEDS: KCL 40 MEQ PO (13:45)
[2025-01-01] MEDS: SINEMET 25-100 1.5 TABLET PO ×2 (13:45→18:03)
[2025-01-01] MEDS: ROCEPHIN 1000 MG IV (20:15)
[2025-01-01] MEDS: STERILE WATER FOR INJECTION 10 ML IV (20:15)
[2025-01-01] MEDS: IMDUR (EXTENDED RELEASE) 30 MG PO (22:18)
[2025-01-01] MEDS: FLEXERIL 10 MG PO (22:18)
[2025-01-01] MEDS: RESTORIL 15 MG PO (22:18)
[2025-01-01] MEDS: LIPITOR 40 MG PO (22:18)
[2025-01-01] MEDS: PEPCID 40 MG PO (22:19)
[2025-01-01] MEDS: KLONOPIN 0.5 MG PO (22:19)
[2025-01-01] MEDS: FLOMAX 0.4 MG PO (22:19)
[2025-01-02] VITALS (7 sets, daily range): BP systolic 108–125; BP diastolic 63–85; PULSE 78–85; O2SAT 93
[2025-01-02] MEDS: ELIQUIS 5 MG PO ×2 (07:53→20:56)
[2025-01-02] MEDS: ASPIR LOW (ENTERIC COATED) 81 MG PO (07:53)
[2025-01-02] MEDS: TOPROL XL 25 MG PO ×2 (07:54→20:56)
[2025-01-02] MEDS: PROTONIX 40 MG PO (07:54)
[2025-01-02] MEDS: SINEMET 25-100 2 TABLET PO ×2 (07:54→23:47)
[2025-01-02 08:08] LABS: Hematocrit 35.5 % (39.0-52.0); Hemoglobin 11.4 g/dL (13.0-18.0); Mean Corp Hgb Conc. 32.1 g/dL (33.0-37.0); Mean Corpuscular Volume 80.0 fL (80.0-94.0); Platelet Count 187 10^3/uL (130-400); Red Cell Dist. Width 15.0 % (11.5-14.5)
[2025-01-02 08:37] LABS: Blood Urea Nitrogen 22 mg/dl (9-20); Calcium 8.7 mg/dl (8.4-10.2); Carbon Dioxide 27 mmol/L (22-30); Chloride 108 mmol/L (98-107); Estimated Creatinine Clearance > 125 ml/min; Glucose 99 mg/dl (70-99); Potassium 3.7 mmol/L (3.5-5.1); Sodium 141 mmol/L (135-145); eGFR > 60.00
--- NOTE | 2025-01-02 11:47 | W.PN.HOSP.TC ---
Today's Communication/Plan
-
VSE Friday
PT/OT
Assessment / Plan
Assessment / Plan
Impression
Severe constipation. Presents with persistent nausea and vomiting.
Stercoral colitis by CT scan
Concern for left lower lobe pneumonia secondary to aspiration with emesis
Concern for UTI
QT prolongation
Conditions prior to admission:
Muscular dystrophy with functional quadriplegia.
Parkinson's disease.
Chronic CHF mildly reduced EF.
Hypertension.
Coronary artery disease status post CABG.
Persistent atrial fibrillation.
Anticoagulation with Eliquis.
Left foot pressure wound present on admission
Plan
Severe constipation
Presents with abdominal distention, discomfort, recurrent emesis.
Recently initiated on Linzess with no significant improvement.
CT scan on admission with large stool burden and possible stercoral colitis.
Status post disimpaction in ED open
Improved with no recurrent emesis since admission. Reports improved abdominal pain
residual liquid stools probably related to oral contrast
Hold Linzess and bowel regimen for now
Advance diet to regular.
Concern for left lower lobe pneumonia.
Afebrile
Normal WBC.
Stable respiratory status.
High risk for aspiration given recurrent emesis as well as Parkinson and muscular dystrophy.
Speech and swallow evaluation without overt aspiration
Advance diet to regular with thin liquids.
VSE Friday
continue Rocephin x 5 days - not unreasonable to complete finite course
CT chest with atelectasis
UTI.
Incontinent
Has abnormal UA but culture negative
Bladder scan for retention
Continue Flomax
Cardiovascular: CAD with prior CABG
CHF with mildly reduced EF at 40%
Persistent atrial fibrillation baseline resume preadmission regimen including metoprolol XL, lisinopril, Imdur, statin
continue Eliquis
Continue aspirin
Prolonged QTc per
Continue monitoring including telemetry. Currently off Zofran and Reglan given on admission
Parkinson's disease
Continue carbidopa levodopa
Continue Restoril
Muscular dystrophy.
Functional quadriplegia
Bedbound, wheelchair-bound at home.
Continue supportive care
Left foot pressure ulcer. Wound care daily.
HTN
- hold Lisinopril - was stopped at outpatient Cards office but patient was taking
Full code
DVT prophylaxis: Eliquis
Discussed with patient's at the bedside
Anticipated Discharge: Within 24 hours
Subjective/Interval History
-
Date of Service: January 02, 2025
resting comfortably, no complaints
Objective Data
-
Labs:
Laboratory Results
01/02/25
07:21
WBC 6.0
Hgb 11.4 L
Hct 35.5 L
Plt Count 187
Sodium 141
Potassium 3.7
Chloride 108 H
Carbon Dioxide 27
BUN 22 H
Creatinine 0.5 L
Glucose 99
Calcium 8.7
Vital Signs:
Vital Signs
Temp Pulse Resp BP Pulse Ox
98.4 F 78 16 112/65 93
01/02/25 11:20 01/02/25 11:20 01/02/25 11:20 01/02/25 11:20 01/02/25 11:20
I&O
01/01/25 01/02/25 01/03/25
06:59 06:59 06:59
Intake Total 990 / 990 1200 / 1200
Output Total 400 / 400 725 / 725
Balance 590 / 590 475 / 475
Physical Exam
-
General: No Apparent Distress
HEENT: Normocephalic and Atraumatic
Respiratory: Negative Wheezes
Cardiac: Regular Rhythm and S1/S2
GI: Soft
Neuro: AO x 3
Psych: Calm
Data Reviewed
-
Total Time Spent with Patient (in minutes): 41
Labs: Labs Reviewed by me
[2025-01-02] MEDS: SINEMET 25-100 1.5 TABLET PO ×2 (13:15→18:03)
[2025-01-02] MEDS: STERILE WATER FOR INJECTION 10 ML IV (20:57)
[2025-01-02] MEDS: ROCEPHIN 1000 MG IV (20:57)
[2025-01-02] MEDS: FLOMAX 0.4 MG PO (22:41)
[2025-01-02] MEDS: LIPITOR 40 MG PO (22:41)
[2025-01-02] MEDS: KLONOPIN 0.5 MG PO (22:42)
[2025-01-02] MEDS: FLEXERIL 10 MG PO (22:42)
[2025-01-02] MEDS: RESTORIL 15 MG PO (22:42)
[2025-01-02] MEDS: IMDUR (EXTENDED RELEASE) 30 MG PO (22:42)
[2025-01-02] MEDS: PEPCID 40 MG PO (22:43)
[2025-01-03 03:00] VITALS: BP 130/70
[2025-01-03 07:05] LABS: Hematocrit 37.7 % (39.0-52.0); Hemoglobin 12.0 g/dL (13.0-18.0); Mean Corp Hgb Conc. 31.8 g/dL (33.0-37.0); Mean Corpuscular Volume 80.7 fL (80.0-94.0); Platelet Count 175 10^3/uL (130-400); Red Cell Dist. Width 14.9 % (11.5-14.5)
[2025-01-03 07:31] VITALS: BP 144/89
[2025-01-03 07:35] LABS: Blood Urea Nitrogen 21 mg/dl (9-20); Glucose 108 mg/dl (70-99)
[2025-01-03 07:36] LABS: Calcium 9.0 mg/dl (8.4-10.2); Carbon Dioxide 28 mmol/L (22-30); Chloride 108 mmol/L (98-107); Estimated Creatinine Clearance > 125 ml/min; Potassium 3.3 mmol/L (3.5-5.1); Sodium 142 mmol/L (135-145); eGFR > 60.00
[2025-01-03] MEDS: TOPROL XL 25 MG PO (08:47)
[2025-01-03] MEDS: ASPIR LOW (ENTERIC COATED) 81 MG PO (08:47)
[2025-01-03] MEDS: PROTONIX 40 MG PO (08:47)
[2025-01-03] MEDS: SINEMET 25-100 2 TABLET PO (08:47)
[2025-01-03] MEDS: ELIQUIS 5 MG PO (08:47)
[2025-01-03 10:40] VITALS: BMI 29.6
[2025-01-03 11:23] VITALS: BP 117/68
--- NOTE | 2025-01-03 11:48 | W.DS.TRANS ---
DC Summary - [employer]
-
Discharge Instructions:
Sleep Apnea Risk Intermediate
Discharge Diagnosis/Procedures Impression
Severe constipation. Presents with persistent
nausea and vomiting.
Stercoral colitis by CT scan
Concern for left lower lobe pneumonia secondary
to aspiration with emesis
Concern for UTI
QT prolongation
Conditions prior to admission:
Muscular dystrophy with functional quadriplegia.
Parkinson's disease.
Chronic CHF mildly reduced EF.
Hypertension.
Coronary artery disease status post CABG.
Persistent atrial fibrillation.
Anticoagulation with Eliquis.
Left foot pressure wound present on admission
Diet Regular
Additional Diets Regular solids and thin liquids with chin tuck
Instructions:
Stand-Alone Forms:
Changes to Home Medications: No
Discharge Medications:
DC Medications w/original date entered in [employer]
apixaban 5 mg tablet (Eliquis) 5 mg PO BID Blood Clot Prevention/Tx 02/15/23
atorvastatin 80 mg tablet (Lipitor) 40 mg PO HS High Cholesterol 02/15/23
carbidopa 25 mg-levodopa 100 mg tablet 1.5 tab PO DAILY@1400 Parkinsons disease 02/15/23
carbidopa 25 mg-levodopa 100 mg tablet 1.5 tab PO DAILY@1900 Parkinsons Disease 02/15/23
carbidopa 25 mg-levodopa 100 mg tablet 2 tab PO DAILY Parkinsons Disease 02/15/23
carbidopa 25 mg-levodopa 100 mg tablet 2 tab PO HS@2300 Parkinsons Disease 02/15/23
coQ10 (ubiquinol) 100 mg capsule 300 mg PO HS Supplement 02/15/23
nitroglycerin 0.4 mg sublingual tablet (Nitrostat) 0.4 mg sublingual [id number] PRN CHEST PAINS 02/15/23
pantoprazole 40 mg tablet,delayed release (Protonix) 40 mg PO DAILY Gastrointestinal Issue 02/15/23
tamsulosin 0.4 mg capsule (Flomax) 0.4 mg PO HS Urinary Issue 02/15/23
lisinopril 10 mg tablet 10 mg PO DAILY Blood Pressure 07/21/24
aspirin 81 mg tablet,delayed release 81 mg PO DAILY #30 tabs 07/27/24
clonazepam 0.5 mg tablet 0.5 mg PO HS Mental Health/Anxiety 12/30/24
cyclobenzaprine 10 mg tablet 10 mg PO HS Neurological Condition 12/30/24
famotidine 40 mg tablet 40 mg PO HS Gastrointestinal Issue 12/30/24
isosorbide mononitrate 30 mg tablet,extended release 24 hr 30 mg PO HS Chest pain 12/30/24
metoprolol succinate 25 mg tablet,extended release 24 hr 25 mg PO BID Blood Pressure 12/30/24
midodrine 5 mg tablet 5 mg PO BID AT 0800,1700 PRN low BP 12/30/24
temazepam 15 mg capsule 15 mg PO HS Sleep 12/30/24
Home Medication Changes
Pending Results: No
--- NOTE | 2025-01-03 12:00 | W.DS.TRANS ---
DC Summary - [employer]
-
Discharge Instructions:
Sleep Apnea Risk Intermediate
Discharge Diagnosis/Procedures Impression
Severe constipation. Presents with persistent
nausea and vomiting.
Stercoral colitis by CT scan
Concern for left lower lobe pneumonia secondary
to aspiration with emesis
Concern for UTI
QT prolongation
Conditions prior to admission:
Muscular dystrophy with functional quadriplegia.
Parkinson's disease.
Chronic CHF mildly reduced EF.
Hypertension.
Coronary artery disease status post CABG.
Persistent atrial fibrillation.
Anticoagulation with Eliquis.
Left foot pressure wound present on admission
Diet Regular
Additional Diets Regular solids and thin liquids with chin tuck
Instructions:
Stand-Alone Forms:
Changes to Home Medications: Yes
Discharge Medications:
DC Medications w/original date entered in [employer]
apixaban 5 mg tablet (Eliquis) 5 mg PO BID Blood Clot Prevention/Tx 02/15/23
atorvastatin 80 mg tablet (Lipitor) 40 mg PO HS High Cholesterol 02/15/23
carbidopa 25 mg-levodopa 100 mg tablet 1.5 tab PO DAILY@1400 Parkinsons disease 02/15/23
carbidopa 25 mg-levodopa 100 mg tablet 1.5 tab PO DAILY@1900 Parkinsons Disease 02/15/23
carbidopa 25 mg-levodopa 100 mg tablet 2 tab PO DAILY Parkinsons Disease 02/15/23
carbidopa 25 mg-levodopa 100 mg tablet 2 tab PO HS@2300 Parkinsons Disease 02/15/23
coQ10 (ubiquinol) 100 mg capsule 300 mg PO HS Supplement 02/15/23
nitroglycerin 0.4 mg sublingual tablet (Nitrostat) 0.4 mg sublingual [id number] PRN CHEST PAINS 02/15/23
pantoprazole 40 mg tablet,delayed release (Protonix) 40 mg PO DAILY Gastrointestinal Issue 02/15/23
tamsulosin 0.4 mg capsule (Flomax) 0.4 mg PO HS Urinary Issue 02/15/23
aspirin 81 mg tablet,delayed release 81 mg PO DAILY #30 tabs 07/27/24
clonazepam 0.5 mg tablet 0.5 mg PO HS Mental Health/Anxiety 12/30/24
cyclobenzaprine 10 mg tablet 10 mg PO HS Neurological Condition 12/30/24
famotidine 40 mg tablet 40 mg PO HS Gastrointestinal Issue 12/30/24
isosorbide mononitrate 30 mg tablet,extended release 24 hr 30 mg PO HS Chest pain 12/30/24
metoprolol succinate 25 mg tablet,extended release 24 hr 25 mg PO BID Blood Pressure 12/30/24
midodrine 5 mg tablet 5 mg PO BID AT 0800,1700 PRN low BP 12/30/24
temazepam 15 mg capsule 15 mg PO HS Sleep 12/30/24
Home Medication Changes
Lisinopril stopped
Pending Results: No
--- NOTE | 2025-01-03 12:42 | CM ---
Addendum entered by Mian Pelaez 01/03/25 13:46:
Per [facility] CM, pt is upgraded to IP.
IMM reviewed, placed on chart, pt has a copy.
Original Note:
CM following re: discharge planning.
Reviewed pt's chart, met with pt and pt's spouse at bedside.
Discharge order noted.
Both pt and his spouse are aware, expressed their agreement and pt's spouse requested to make a referral to [facility] with a request for physical therapist Richi. Pt still OBS status.
referral to [facility] made for resumptions of care.
Pt's spouse stated she will transport the pt home on their family w/c accessible car.
Please fax discharge instructions to [facility] at [phone].
D/C plan: home with resumptions of [facility] and family support. Spouse to transport.
[2025-01-03] MEDS: KCL 40 MEQ PO (13:07)
[2025-01-03] MEDS: STERILE WATER FOR INJECTION 10 ML IV ×2 (13:08)
[2025-01-03] MEDS: ROCEPHIN 1000 MG IV (13:12)
--- NOTE | 2025-01-03 13:30 | PTCARENOTE ---
ordered this RN to administer IV antibiotic early to pt prior to discharge. See MAR.
--- NOTE | 2025-01-03 13:39 | PN.CDI ---
CDI
- -
CDI:
Physician Documentation Request
Admit Date: 01/02/25 11:54
Dear Doctor Gabriel,
Please review the following and provide your response in the progress notes.
Clinical Indicators:
Pt admitted with severe constipation, stercoral colitis, and aspiration pneumonia.
12/31 [facility] RN: ' Patient admitted with stage 2 PI to left lateral malleolus....Spoke to CHRISTINA Reyes and patient was admitted with stage 1 PI to sacrum.'
Physician documentation of the type and location of wounds is required for compliant documentation. Based on the above clinical findings and your assessment, please provide the following in your progress note:
1. Location of the ulcer/wound, including laterality.
2. Type (etiology) of ulcer/wound:
Stage 1 sacral pressure injury POA
Non-pressure sacral injury POA
Other
Use of terms such as suspected, likely, concern for, or probable (associated with a specific diagnosis that is being evaluated, monitored, or treated as if it exists) are acceptable and can be coded in the inpatient setting, when documented at the
time of discharge.
Thank you,
Dorita Newton RN, BSN
CDI Specialist
[facility]
Please use your independent medical judgment in providing your response.
*Source: National Pressure Ulcer Advisory Panel (NPUAP)
--- NOTE | 2025-01-03 13:42 | PTOTSP ---
Speech Therapy Evaluation:
Patient presents with mild oropharyngeal dysphagia. Silent aspiration of thin liquids occurred due to combination of delayed swallow initiation and mistimed laryngeal vestibule closure. Chin tuck was effective at improving timing of swallow and
airway protection. No significant pharyngeal residue observed. Suspect etiology of swallow function likely related to complex medical history with MD and Parkinson�s. Please see patient care note for full details of aspiration and swallowing
physiology.
Recommend:
1. IDDSI Level 7 (regular solids) and thin liquids with chin tuck
2. Medications as best tolerated
3. Aspiration precautions: Upright all meals, small bites/sips, slow rate, chin tuck
4. Modifiable risk factors for aspiration pneumonia including encouraging frequent and thorough oral care, pulmonary hygiene measures, and increasing physical mobility as medically feasible
5. CELERY TIER to follow for further education and for dysphagia tx to ensure tolerance of diet with recommended strategies/precautions
== END 2025-01-03 14:00 | disposition home or self-care (01) | DRG 177 ==
LOC: 2 NORTH 11:54
PROVIDERS: Emergency Medicine; Internal Medicine; Nurse Practitioner Family; ADMITTING PHYSICIAN Internal Medicine; ATTENDING PHYSICIAN Internal Medicine; EMERGENCY PHYSICIAN Emergency Medicine; FAMILY PHYSICIAN Internal Medicine
DX: J69.0 Pneumonitis due to inhalation of food and vomit (principal); R53.2 Functional quadriplegia; I50.22 Chronic systolic (congestive) heart failure; I48.19 Other persistent atrial fibrillation; J98.11 Atelectasis; K59.00 Constipation, unspecified; G71.00 Muscular dystrophy, unspecified; G20.A1 Parkinson's disease without dyskinesia, without mention of fluctuations; E78.00 Pure hypercholesterolemia, unspecified; I11.0 Hypertensive heart disease with heart failure; G25.81 Restless legs syndrome; I25.10 Atherosclerotic heart disease of native coronary artery without angina pectoris; K21.9 Gastro-esophageal reflux disease without esophagitis; L89.522 Pressure ulcer of left ankle, stage 2; K52.89 Other specified noninfective gastroenteritis and colitis; L89.151 Pressure ulcer of sacral region, stage 1; R32 Unspecified urinary incontinence; F32.9 Major depressive disorder, single episode, unspecified; Z79.01 Long term (current) use of anticoagulants; Z95.1 Presence of aortocoronary bypass graft; Z95.5 Presence of coronary angioplasty implant and graft; Z85.46 Personal history of malignant neoplasm of prostate; Z74.01 Bed confinement status; Z85.51 Personal history of malignant neoplasm of bladder; Z87.440 Personal history of urinary (tract) infections; Z79.82 Long term (current) use of aspirin; Z99.3 Dependence on wheelchair
CPT/HCPCS: 51701; 71045; 71270; 74177; 74230; 80048; 80053; 81003; 81015; 83690; 85025; 85027; 85730; 87086; 87324; 87449; 92610; 92611; 93005; 96374; 96375; 96376; 97163; 97167; 99285; Q9967